=== PATIENT | male | born 1945 | race Caucasian/White ===

== ENCOUNTER 2017-06-12 09:41 | Outpatient (CLI) | payer MEDICARE, MEDICAID ==
--- NOTE | 2017-06-12 13:12 | Ultrasound Report ---
THYROID ULTRASOUND: 06/12/2017 CLINICAL INDICATION: Thyroid nodule. COMPARISON: 04/04/2016 TECHNIQUE: Real-time scanning was performed with brand representative static images obtained. FINDINGS: The right lobe measures 5.1 x 2.2 x 2.10 cm, and the left lobe measures 5.9 x 2.1 x 1.6 cm . Multiple nodules are again seen bilaterally, without significant interval change. The dominant no dule in the mid portion of the right lobe is hypoechoic, with circumscribed margins, measuring 2.0 x 1.7 x 1.6 cm. There has been no significant interval change. IMPRESSION: STABLE APPEARANCE OF MULTINODULAR GOITER. JOB #: [id number] EXT JOB #:[id number]
== END 2017-06-12 09:42 | disposition home or self-care (01) ==
LOC: DI 09:41
PROVIDERS: ATTEND Internal Medicine
DX: E04.2 Nontoxic multinodular goiter (principal)
CPT/HCPCS: 76536

== ENCOUNTER 2017-06-12 09:43 | Outpatient (CLI) | payer MEDICARE | END 2017-06-12 09:44 | disposition home or self-care (01) | LOC: DI 09:43 | PROVIDERS: ATTEND Internal Medicine | DX: I35.0 Nonrheumatic aortic (valve) stenosis (principal) | CPT/HCPCS: 76536; 93306 ==

== ENCOUNTER 2017-08-12 00:54 | Outpatient (CLI) | payer MEDICARE, MEDICAID | END 2017-08-12 00:55 | disposition critical access hospital (66) | LOC: EMS 00:54 | PROVIDERS: ATTEND Surgery | DX: R06.00 Dyspnea, unspecified (principal) | CPT/HCPCS: A0425; A0427 ==

== ENCOUNTER 2017-08-12 00:58 | Emergency (ER) | payer MEDICARE, MEDICAID ==
--- NOTE | 2017-08-12 01:06 | ED Physician Documentation ---
PD HPI DYSPNEA - Stated complaint Stated Complaint: SOA NEW ONSET/CPAP - History obtained from History obtained from: Patient, Family (spouse) - History of Present Illness Timing - onset: Enter time (00:00 (midnight)) Timing - onset during: Rest (lying in bed but not asleep) Timing - details: Abrupt onset Pain level max: 0 Pain level now: 0 Inciting event(s): Other (no apparent inciting event) Improved by: BiPAP / CPAP Worsened by: Other (no apparent exacerbating factors) Associated symptoms: No: Fever, Cough, Hemoptysis, Wheezing, Chest pain / discomfort, Palpitations, Diaphoresis, Bilateral edema Similar symptoms before: Has not had sx before Recently seen: Not recently seen - Additional information Additional information: sudden onset dyspnea while lying in bed awake at approximately midnight. EMS found patient severely dyspneic with pulse ox in the 70s% range. Dramatic improvement en route subsequent to initiation of CPAP by EMS. Patient denies chest pain and denies h/o similar dyspnea. Patient had echo 2 months ago which revealed severe aortic stenosis. Patient's says that he was recently evaluated in outpatient setting by a claim service representative and was told that without surgery, patient would likely not survive beyond 2-3 years, but that the claim service representative's recommendation was to reevaluate him by the end of August rather than perform surgery, as patient did not have symptoms attributable to the , and that patient's "confusion" ( per , although she says patient has not been specifically diagnosed with dementia or other cause of his confusion) also was factored into this recommendation. Review of Systems Constitutional: reports: Reviewed and negative Eyes: reports: Reviewed and negative Ears: reports: Reviewed and negative Nose: reports: Reviewed and negative Throat: reports: Reviewed and negative Cardiac: denies: Chest pain / pressure, Palpitations, Pedal edema, Calf pain Respiratory: reports: Dyspnea. denies: Cough, Hemoptysis, Wheezing GI: reports: Reviewed and negative : denies: Dysuria, Frequency Skin: reports: Reviewed and negative Musculoskeletal: reports: Reviewed and negative Neurologic: reports: Reviewed and negative PD PAST MEDICAL HISTORY - Past Medical History Cardiovascular: Hypertension, High cholesterol Respiratory: CPAP use Endocrine/Autoimmune: Type 2 diabetes - Past Surgical History Past Surgical History: Yes General: Appendectomy - Present Medications Home Medications: Ambulatory Orders Medication Instructions Recorded Confirmed Glipizide [Glipizide Xl] 10 mg PO BID 01/30/14 08/12/17 Losartan [Cozaar] 25 mg PO DAILY 01/30/14 08/12/17 Metformin HCl 1,000 mg PO TID 01/30/14 08/12/17 Sertraline HCl 50 mg PO DAILY 01/30/14 08/12/17 Glucosamine Sulfate Dipot Chlr 2,000 mg PO DAILY 01/16/15 08/12/17 [Glucosamine] [place]-3 Fatty Acids/Fish Oil [Fish 2 each PO DAILY 01/16/15 08/12/17 Oil 1,000 mg Capsule] Insulin Glargine [Lantus Solostar] 10 unit SUBQ QPM 02/12/15 08/12/17 Aspirin [Aspirin EC] 81 mg PO DAILY 08/12/17 08/12/17 Atorvastatin [Lipitor] 10 mg PO QDDINNER 08/12/17 08/12/17 - Allergies Allergies/Adverse Reactions: Allergies Allergy/AdvReac Type Severity Reaction Status Date / Time Penicillins AdvReac Unknown Verified 01/30/14 22:10 - Social History Does the pt smoke?: No Smoking Status: Never smoker Does the pt drink ETOH?: Yes Does the pt have substance abuse?: No - Immunizations Immunizations are current?: Yes - POLST Patient has POLST: No PD ED PE NORMAL - Vitals Vital signs reviewed: Yes - General General: Alert and oriented X 3, Well developed/nourished, Other (on CPAP, mild dyspnea) - HEENT HEENT: Moist mucous membranes - Neck Neck: Supple, no meningeal sign - Cardiac Cardiac: RRR, No murmur (no murmur discernable but heart sounds are obscured by course rales (inspiratory and expiratory)) - Respiratory Respiratory: No respiratory distress, Other (course rales bilaterally 2/3 up from bases) - Abdomen Abdomen: Soft, Non tender - Derm Derm: Normal color, Warm and dry - Extremities Extremities: No edema - Neuro Neuro: Alert and oriented X 3 Results - Vitals Vitals: Vital Signs - 24 hr 08/12/17 08/12/17 08/12/17 00:45 01:09 01:22 Temperature 36.2 C L Heart Rate 95 94 Respiratory 19 20 Rate Blood Pressure 155/101 H 149/88 H O2 Saturation 89 L 93 94 08/12/17 08/12/17 08/12/17 04:34 06:04 07:24 Temperature 36.6 C Heart Rate 78 77 70 Respiratory 18 12 16 Rate Blood Pressure 127/80 117/74 117/74 O2 Saturation 98 97 100 08/12/17 08/12/17 08/12/17 08:14 09:34 10:02 Temperature 36.9 C Heart Rate 73 73 74 Respiratory 14 15 13 Rate Blood Pressure 112/73 101/64 101/64 O2 Saturation 97 98 96 08/12/17 10:55 Temperature Heart Rate 78 Respiratory 14 Rate Blood Pressure 104/62 O2 Saturation 96 Oxygen O2 Source Nasal cannula Oxygen Flow Rate 4 - EKG (time done) No standard instances Rate: Rate (enter#) (94) Rhythm: NSR [place]: Normal Intervals: Normal [place] QRS: Normal Ischemia: Normal ST segments, T wave inversion (I, aVL) - Labs Labs: Laboratory Tests 08/12/17 08/12/17 08/12/17 01:32 01:32 01:32 WBC 10.0 RBC 4.28 L Hgb 14.1 Hct 40.9 L MCV 95.6 H MCH 32.9 H MCHC 34.5 RDW 14.4 Plt Count 186 MPV 9.3 Neut # 7.9 H Lymph # 1.1 L [place] # 0.6 Eos # 0.1 Baso # 0.3 H Absolute Nucleated RBC 0.00 Nucleated RBC % 0.0 Sodium 138 Potassium 4.3 Chloride 103 Carbon Dioxide 25 Anion Gap 10.0 BUN 23 H Creatinine 0.9 Estimated GFR (MDRD) 83 L Glucose 188 H Calcium 8.8 Total Creatine Kinase CK-MB (CK-2) Troponin I 0.14 B-Natriuretic Peptide 08/12/17 08/12/17 08/12/17 01:32 03:32 03:32 WBC RBC Hgb Hct MCV MCH MCHC RDW Plt Count MPV Neut # Lymph # [place] # Eos # Baso # Absolute Nucleated RBC Nucleated RBC % Sodium Potassium Chloride Carbon Dioxide Anion Gap BUN Creatinine Estimated GFR (MDRD) Glucose Calcium Total Creatine Kinase 142 CK-MB (CK-2) 8.4 H Troponin I 0.71 H* B-Natriuretic Peptide 579 H - Rads (name of study) chest xray Radiology: Prelim report reviewed, See rad report PD MEDICAL DECISION MAKING - ED course Complexity details: reviewed old records, reviewed results, re-evaluated patient , considered differential, d/w patient, d/w family ED course: Over 1000cc UO subsequent to 60mg IV lasix and marked improvement in dyspnea. We were able to wean patient off CPAP early in ED stay, to nasal cannula. D/W Dr. Helm ([facility] cardiology); he says that if patient needs surgery for , it cannot be performed at [facility]; he recommends contacting [facility] or [facility]. I discussed this with patient and his , and they do not have a preference. [facility] contacted, and they have no beds available. Patient's then requested [facility]. D/W Dr. Lopez (cardiology at [facility]); she states it would be appropriate to transfer to [facility] but that I should contact intesivist. I then D/W Dr. Bledsoe, production boring machine operator at [facility], who accepts patient. COBRA forms filled out but prior to transfer, I was called by Dr. Boone (the [facility] production boring machine operator, as Dr. Cavanaugh had ended her shift). Dr. Boone said he would recontact me, but I subsequently was called by Dr. Dennis, the hospitalist at [facility]; she says she was contacted by the transfer center at [facility] to admit to telemetry (floor bed). I discussed the case with her, and she accepted patient to her service. I was subsequently contacted by transfer center at [facility] and it was relayed to me that [facility] would not have a bed available for at least 24 hours, but that they had contacted someone at [facility] and were told that an appropriate bed was now available. PRESCHOOL TEACHER'S ASSISTANT recontacted [facility] and was told they do not have beds available. I then contacted cardiology corporation lawyer at [facility] , d/w Dr. Alexandre. He will see if beds are available and either he or the hospitalist will call back to accept patient if a bed is available. Subsequently heard back from transfer center and informed that Dr. Alexandre accepts transfer Departure - Departure Disposition: 02 Transfer Acute Care Hosp Clinical Impression: Pulmonary edema Qualifiers: Chronicity: acute Qualified Code(s): J81.0 - Acute pulmonary edema Condition: Stable Discharge Date/Time: 08/12/17 11:30
[2017-08-12] MEDS ORDERED: FUROSEMIDE 40 MG/4 ML VIAL IVP STA (01:26)
[2017-08-12 01:37] LABS: BASOPHILS # (AUTO) 0.3 10^3/uL (0.0-0.1); BASOPHILS % (AUTO) 3.4 %; EOSINOPHILS # (AUTO) 0.1 10^3/uL (0.0-0.7); EOSINOPHILS % (AUTO) 1.3 %; HCT - HEMATOCRIT 40.9 % (42.0-52.0); HGB - HEMOGLOBIN 14.1 g/dL (14.0-18.0); LYMPHOCYTES # (AUTO) 1.1 10^3/uL (1.5-3.5); LYMPHOCYTES % (AUTO) 11.1 %; MEAN CORPUSCULAR HEMOGLOBIN 32.9 pg (27.0-31.0); MEAN CORPUSCULAR HGB CONC 34.5 g/dL (32.0-36.0); MEAN CORPUSCULAR VOLUME 95.6 fL (80.0-94.0); MEAN PLATELET VOLUME 9.3 fL (7.4-11.4); MONOCYTES # (AUTO) 0.6 10^3/uL (0.0-1.0); MONOCYTES % (AUTO) 5.6 %; NEUTROPHILS # (AUTO) 7.9 10^3/uL (1.5-6.6); NEUTROPHILS % (AUTO) 78.6 %; RED BLOOD COUNT 4.28 10^6/uL (4.70-6.10); RED CELL DISTRIBUTION WIDTH 14.4 % (12.0-15.0)
[2017-08-12 01:46] LABS: CALCIUM 8.8 mg/dL (8.5-10.3); CREATININE 0.9 mg/dL (0.6-1.2); POTASSIUM 4.3 mmol/L (3.5-5.0)
[2017-08-12] MEDS ORDERED: FUROSEMIDE 20 MG/2 ML VIAL IVP ONE (01:49)
[2017-08-12] MEDS ORDERED: FUROSEMIDE 40 MG/4 ML VIAL ONE (01:49)
--- NOTE | 2017-08-12 02:13 | XRAY Preliminary Report ---
Exam: XR CHEST 2 VIEW PA/LAT IMPRESSION: Appearance of the chest could be due to moderate pulmonary edema. Concurrent infection or aspiration, especially within the left lung difficult to exclude with certainty. [facility] SITE ID: [id number]
--- NOTE | 2017-08-12 02:16 | XRAY Report ---
EXAM: CHEST RADIOGRAPHY EXAM DATE: 08/12/2017 01:53 AM. CLINICAL HISTORY: Dyspnea. COMPARISON: 05/08/2016 TECHNIQUE: 2 views. FINDINGS: Grid artifact reduces sensitivity and specificity. Lungs/Pleura: There is new moderate streaky by lateral perihilar opacity, as well as patchy multifoca l airspace disease within the left lung. Trace bilateral effusions are present. Mediastinum: There is mild bilateral hilar enlargement. This is left greater than right. Cardiac silh ouette is within normal limits. Other: Multilevel degenerative change within the spine. IMPRESSION: Appearance of the chest could be due to moderate pulmonary edema. Concurrent infection or aspiration, especially within the left lung difficult to exclude with certainty. [facility] Referring Provider Line: [phone] SITE ID: [id number]
[2017-08-12 03:57] LABS: CREATINE KINASE MB 8.4 ng/mL (0.6-6.3)
[2017-08-12 04:01] LABS: TROPONIN I 0.71 ng/mL (<0.49)
[2017-08-12] MEDS ORDERED: ENOXAPARIN 100 MG/ML SYRINGE SUBQ STA (08:08)
[2017-08-12] MEDS ORDERED: ASPIRIN CHEW 81 MG TABLET PO STA (08:08)
[2017-08-12] MEDS ORDERED: ENOXAPARIN 100 MG/ML SYRINGE SUBQ ONE (08:31)
[2017-08-12] MEDS ORDERED: ASPIRIN CHEW 81 MG TABLET ONE (08:31)
[2017-08-12 11:39] VITALS: BP 104/62
== END 2017-08-12 11:30 | disposition short-term general hospital (02) ==
LOC: EDUNIT# → ED 00:58
DX: J81.0 Acute pulmonary edema (principal); I10 Essential (primary) hypertension; E11.8 Type 2 diabetes mellitus with unspecified complications; Z79.4 Long term (current) use of insulin; E78.00 Pure hypercholesterolemia, unspecified; Z79.82 Long term (current) use of aspirin
CPT/HCPCS: 36415; 71020; 80048; 82550; 82553; 83880; 84484; 85025; 93005; 96372; 96374; 99285; A9270; J1650

== ENCOUNTER 2017-08-12 11:32 | Outpatient (CLI) | payer MEDICARE, MEDICAID | END 2017-08-12 11:33 | disposition short-term general hospital (02) | LOC: EMS 11:32 | PROVIDERS: ATTEND Surgery | DX: J81.0 Acute pulmonary edema (principal) | CPT/HCPCS: A0425; A0426 ==

== ENCOUNTER 2017-09-29 11:34 | Outpatient (CLI) | payer MEDICARE, MEDICAID | END 2017-09-29 11:35 | disposition critical access hospital (66) | LOC: EMS 11:34 | PROVIDERS: ATTEND Surgery | DX: S80.11XA Contusion of right lower leg, initial encounter (principal); X58.XXXA Exposure to other specified factors, initial encounter | CPT/HCPCS: A0425; A0429 ==

== ENCOUNTER 2017-09-29 11:43 | Emergency (ER) | payer MEDICARE, MEDICAID ==
--- NOTE | 2017-09-29 15:22 | ED Physician Documentation ---
History of Present Illness - Stated complaint Stated Complaint: DVT - Chief complaint Chief Complaint: Ext Problem - History obtained from History obtained from: Patient, Family - Additonal information Additional information: The patient is a 72-year-old male who is 10 days status post CABG with venous graft from his right lower extremity. Visiting nurse evaluated him today for the first time, and sent him to the emergency department because of swelling and redness of his right calf. He denies any pain in the calf. He denies fever , cough, or shortness of breath. He denies history of similar symptoms in the past. Review of Systems Constitutional: denies: Fever Nose: denies: Congestion Throat: denies: Sore throat Cardiac: denies: Palpitations Respiratory: denies: Dyspnea, Cough GI: denies: Abdominal Pain, Nausea, Vomiting : denies: Dysuria Skin: denies: Rash Musculoskeletal: reports: Extremity swelling (Right lower extremity.) Neurologic: denies: Focal weakness, Numbness, Headache PD PAST MEDICAL HISTORY - Past Medical History Past Medical History: Yes Cardiovascular: Hypertension, High cholesterol, Coronary artery disease Respiratory: CPAP use Endocrine/Autoimmune: Type 2 diabetes - Past Surgical History Past Surgical History: Yes General: Appendectomy Cardiovascular: CABG (10 days ago.), Other - Present Medications Home Medications: Ambulatory Orders Medication Instructions Recorded Confirmed Glipizide [Glipizide Xl] 10 mg PO BID 01/30/14 08/12/17 Losartan [Cozaar] 25 mg PO DAILY 01/30/14 08/12/17 Metformin HCl 1,000 mg PO TID 01/30/14 08/12/17 Sertraline HCl 50 mg PO DAILY 01/30/14 08/12/17 Glucosamine Sulfate Dipot Chlr 2,000 mg PO DAILY 01/16/15 08/12/17 [Glucosamine] [place]-3 Fatty Acids/Fish Oil [Fish 2 each PO DAILY 01/16/15 08/12/17 Oil 1,000 mg Capsule] Insulin Glargine [Lantus Solostar] 10 unit SUBQ QPM 02/12/15 08/12/17 Aspirin [Aspirin EC] 81 mg PO DAILY 08/12/17 08/12/17 Atorvastatin [Lipitor] 10 mg PO QDDINNER 08/12/17 08/12/17 - Allergies Allergies/Adverse Reactions: Allergies Allergy/AdvReac Type Severity Reaction Status Date / Time Penicillins AdvReac Unknown Verified 01/30/14 22:10 - Living Situation Living Situation: reports: With spouse/s.o. Living Arrangement: reports: At home - Social History Does the pt smoke?: No Smoking Status: Never smoker Does the pt drink ETOH?: Yes Does the pt have substance abuse?: No - Immunizations Immunizations are current?: Yes - POLST Patient has POLST: No PD ED PE NORMAL - Vitals Vital signs reviewed: Yes (Initially hypertensive.) - General General: Alert and oriented X 3, Well developed/nourished - HEENT HEENT: Atraumatic, Moist mucous membranes, Pharynx benign - Neck Neck: No adenopathy, No JVD - Cardiac Cardiac: RRR, No murmur, Other (Sternal incision site is intact, and appears to be healing well, without evidence of infection.) - Respiratory Respiratory: No respiratory distress, Clear bilaterally - Abdomen Abdomen: Soft, Non tender - Back Back: No CVA TTP - Derm Derm: No rash - Extremities Extremities: No tenderness to palpate, No calf tenderness / cord, Other (There is swelling of the right lower extremity distal to the venous graft donor site. There is associated ecchymosis, without significant warmth to palpation. There is no calf tenderness to palpation. Distal neurovascular is intact.) - Neuro Neuro: Alert and oriented X 3, No motor deficit, No sensory deficit Results - Vitals Vitals: Oxygen O2 Source Room air - Rads (name of study) Venous doppler U/S right LE Radiology: Prelim report reviewed, EMP read contemporaneously, See rad report ( No DVT.) PD MEDICAL DECISION MAKING - ED course Complexity details: reviewed results, re-evaluated patient, considered differential, d/w patient, d/w family ED course: The patient's presentation is significant for postoperative edema in the right lower extremity, distal to the venous donor site. There is no evidence of DVT on Doppler ultrasound. His presentation does not suggest cellulitis. The edema is secondary to venous congestion. I discussed with the patient and his the results of the ultrasound, symptomatic treatment and outpatient follow-up, as well as potentially worrisome signs or symptoms that should prompt reevaluation in the emergency department. Departure - Departure Disposition: 01 Home, Self Care Clinical Impression: Edema of right lower extremity, S/P CABG (coronary artery bypass graft) Condition: Stable Instructions: CABG After Prevent Swelling, ED Leg Swelling Unilateral Follow-Up: Fanny Wilson MD [Primary Care Provider] - Comments: Keep your right leg elevated as much of the time as possible. You can wear compression stocking to help diminish swelling. Follow up with your primary physician next week as planned. Return to the emergency department if you develop increasing redness, swelling, or pain of your leg, or otherwise worsening symptoms. Discharge Date/Time: 09/29/17 15:55
[2017-09-29 16:12] VITALS: BP 110/87
--- NOTE | 2017-09-29 17:15 | Ultrasound Report ---
DATE OF SERVICE: 09/29/2017 BILATERAL LOWER EXTREMITY VENOUS DUPLEX: 09/29/2017 CLINICAL INDICATION: Swelling, erythema, two weeks status post cardiac surgery. TECHNIQUE: Real-time sonographic vascular imaging was performed by the filbert grower through the lower extremities utilizing both color flow and Doppler spectral analysis. Multiple territory sales representative static images were saved for review. FINDINGS: A bilateral lower extremity venous sonogram is performed revealing the common femoral, superficial femoral, profunda femoris, and popliteal veins to be adequately visualized without intraluminal defects. There is normal venous compression, augmentation, phasicity, and spontaneity of venous flow. In the calf, the visualized more cephalad portions of posterior tibial and peroneal veins are grossly compressible, without filling defects. IMPRESSION: NO EVIDENCE OF DEEP VENOUS THROMBOSIS. TD: 09/29/2017 18:14
== END 2017-09-29 15:55 | disposition home or self-care (01) ==
LOC: EDUNIT# → ED 11:43
DX: R60.0 Localized edema (principal); Z98.890 Other specified postprocedural states; I25.10 Atherosclerotic heart disease of native coronary artery without angina pectoris; Z95.1 Presence of aortocoronary bypass graft; E11.9 Type 2 diabetes mellitus without complications; Z79.4 Long term (current) use of insulin; E78.00 Pure hypercholesterolemia, unspecified; G47.30 Sleep apnea, unspecified; Z79.82 Long term (current) use of aspirin
CPT/HCPCS: 93970; 99283

== ENCOUNTER 2017-10-25 09:11 | Outpatient (CLI) | payer MEDICARE, MEDICAID ==
[2017-10-25] MEDS ORDERED: BARIUM SULFATE 148 GM POWDER PO ONE (10:13)
[2017-10-25] MEDS ORDERED: BARIUM SULFATE 135 ML BOTTLE PO ONE (10:13)
--- NOTE | 2017-10-25 11:06 | XRAY Report ---
ESOPHAGRAM: 10/25/2017 CLINICAL INDICATION: Dysphagia. FINDINGS: Esophagram was performed in a semi-recumbent and prone positions, due to the patient's instability (recent cardiac surgery). The esophagus demonstrates normal caliber. Tertiary contractions are seen. No ulceration or mass lesion is appreciated. There is a small sliding hiatal hernia, which produced reflux. A 13 mm barium pill passed slowly through the esophagus, due to presbyesophagus. The pill did not reproduce the patient's symptoms. IMPRESSION: PRESBYESOPHAGUS. HIATAL HERNIA, PRODUCING REFLUX. NO ULCER OR MASS LESION IDENTIFIED. FLUOROSCOPY TIME: 2 MINUTES 55 SECONDS; 22 SPOT IMAGES OBTAINED. TD: 10/25/2017 11:05
== END 2017-10-25 09:12 | disposition home or self-care (01) ==
LOC: DI 09:11
PROVIDERS: ATTEND Internal Medicine
DX: K22.8 Other specified diseases of esophagus (principal); K44.9 Diaphragmatic hernia without obstruction or gangrene; K21.9 Gastro-esophageal reflux disease without esophagitis
CPT/HCPCS: 74220; A9270

== ENCOUNTER 2017-11-27 19:50 | Outpatient (CLI) | payer MEDICARE, MEDICAID ==
[2017-11-27 21:13] LABS: BASOPHILS # (AUTO) 0.1 10^3/uL (0.0-0.1); BASOPHILS % (AUTO) 0.7 %; EOSINOPHILS # (AUTO) 0.1 10^3/uL (0.0-0.7); EOSINOPHILS % (AUTO) 0.8 %; HGB - HEMOGLOBIN 11.1 g/dL (14.0-18.0); LYMPHOCYTES # (AUTO) 0.8 10^3/uL (1.5-3.5); LYMPHOCYTES % (AUTO) 10.2 %; MEAN CORPUSCULAR HEMOGLOBIN 28.7 pg (27.0-31.0); MEAN CORPUSCULAR HGB CONC 32.3 g/dL (32.0-36.0); MEAN CORPUSCULAR VOLUME 88.6 fL (80.0-94.0); MEAN PLATELET VOLUME 7.8 fL (7.4-11.4); MONOCYTES # (AUTO) 0.5 10^3/uL (0.0-1.0); MONOCYTES % (AUTO) 6.2 %; NEUTROPHILS # (AUTO) 6.5 10^3/uL (1.5-6.6); NEUTROPHILS % (AUTO) 82.1 %; PLT - PLATELET COUNT 366 10^3/uL (130-450); RED BLOOD COUNT 3.88 10^6/uL (4.70-6.10)
[2017-11-27 21:30] LABS: ALBUMIN 3.8 g/dL (3.2-5.5); BILIRUBIN,TOTAL 0.3 mg/dL (0.2-1.0); CALCIUM 8.8 mg/dL (8.5-10.3); CREATININE 0.9 mg/dL (0.6-1.2); TOTAL PROTEIN 7.5 g/dL (6.7-8.2)
--- NOTE | 2017-11-27 21:40 | Ultrasound Report ---
EXAM: BILATERAL LOWER EXTREMITY VENOUS ULTRASOUND EXAM DATE: 11/27/2017 09:03 PM. CLINICAL HISTORY: BILATERAL EDEMA. COMPARISON: None. TECHNIQUE: Real-time sonographic vascular imaging was performed by the wood coater through the lower extremities utilizing both color-flow and Doppler spectral analysis. Multiple service center representative static i mages were saved for review. FINDINGS: Right: Common Femoral Vein (CFV): Normal. CFV-GSV Junction: Normal. Profunda Femoral Vein (PFV): Normal. Femoral Vein (FV) Prox: Normal. Femoral Vein (FV) Mid: Normal. Femoral Vein (FV) Dist: Normal. Popliteal Vein: Normal. Posterior Tibial Veins: Limited visualization. Peroneal Veins: Limited visualization. Left: Common Femoral Vein (CFV): Normal. CFV-GSV Junction: Normal. Profunda Femoral Vein (PFV): Normal. Femoral Vein (FV) Prox: Normal. Femoral Vein (FV) Mid: Normal. Femoral Vein (FV) Dist: Normal. Popliteal Vein: Normal. Posterior Tibial Veins: Limited visualization. Peroneal Veins: Limited visualization. Other: None. IMPRESSION: No evidence for deep venous thrombosis bilaterally. [facility] Referring Provider Line: [phone] SITE ID: [id number]
[2017-11-27 21:43] LABS: THYROID STIMULATING HORMONE 1.58 uIU/mL (0.34-5.60)
[2017-11-27 21:47] LABS: FERRITIN 352.2 ng/mL (23.9-336.2)
== END 2017-11-27 19:51 | disposition home or self-care (01) ==
LOC: DI 19:50
PROVIDERS: ATTEND Internal Medicine
DX: R60.9 Edema, unspecified (principal); I25.10 Atherosclerotic heart disease of native coronary artery without angina pectoris; D64.9 Anemia, unspecified
CPT/HCPCS: 36415; 80053; 82728; 83540; 83880; 84443; 84466; 85025; 93970

== ENCOUNTER 2017-12-01 18:32 | Outpatient (CLI) | payer MEDICARE, MEDICAID | END 2017-12-01 18:33 | disposition critical access hospital (66) | LOC: EMS 18:32 | PROVIDERS: ATTEND Surgery | DX: R53.1 Weakness (principal) | CPT/HCPCS: A0425; A0429 ==

== ENCOUNTER 2017-12-01 18:40 | Inpatient (IN) | payer MEDICARE, MEDICAID ==
[2017-12-01 19:32] LABS: BASOPHILS # (AUTO) 0.1 10^3/uL (0.0-0.1); EOSINOPHILS # (AUTO) 0.1 10^3/uL (0.0-0.7); EOSINOPHILS % (AUTO) 1.9 %; HGB - HEMOGLOBIN 10.7 g/dL (14.0-18.0); LYMPHOCYTES # (AUTO) 1.1 10^3/uL (1.5-3.5); LYMPHOCYTES % (AUTO) 16.4 %; MEAN CORPUSCULAR HGB CONC 31.7 g/dL (32.0-36.0); MEAN CORPUSCULAR VOLUME 88.2 fL (80.0-94.0); MEAN PLATELET VOLUME 7.6 fL (7.4-11.4); MONOCYTES # (AUTO) 0.6 10^3/uL (0.0-1.0); MONOCYTES % (AUTO) 8.5 %; NEUTROPHILS # (AUTO) 4.7 10^3/uL (1.5-6.6); NEUTROPHILS % (AUTO) 72.2 %; PLT - PLATELET COUNT 362 10^3/uL (130-450); RED BLOOD COUNT 3.84 10^6/uL (4.70-6.10); RED CELL DISTRIBUTION WIDTH 18.3 % (12.0-15.0); WHITE BLOOD COUNT 6.5 x10^3/uL (4.8-10.8)
[2017-12-01 19:40] LABS: PT - PROTHROMBIN TIME 11.7 secs (9.9-12.6)
[2017-12-01 19:45] LABS: ALBUMIN 3.6 g/dL (3.2-5.5); BILIRUBIN,TOTAL 0.4 mg/dL (0.2-1.0); CALCIUM 8.9 mg/dL (8.5-10.3); CREATININE 0.8 mg/dL (0.6-1.2); TOTAL PROTEIN 7.1 g/dL (6.7-8.2)
[2017-12-01 19:49] LABS: TROPONIN I < 0.04 ng/mL (<0.49)
[2017-12-01 19:52] LABS: CREATINE KINASE MB 2.2 ng/mL (0.6-6.3)
--- NOTE | 2017-12-01 20:07 | ED Physician Documentation ---
PD HPI FOCAL NEURO - Stated complaint Stated Complaint: LEG WEAKNESS - Chief complaint Chief Complaint: Ext Problem - History obtained from History obtained from: Patient, Family (mostly from the d/t dementia) - History of Present Illness Timing - onset: Other (This is a very pleasant 72-year-old gentleman with dementia cared for by his at home. He is a couple months out from coronary bypass. He has been improving well, walking with a walker. They noticed today that after waking up he had persistent difficulties with potentially the right leg. He nearly collapsed a few times. The patient has no specific complaint though but he is a poor historian.) Review of Systems Unable to obtain: Dementia PD PAST MEDICAL HISTORY - Past Medical History Cardiovascular: Hypertension, High cholesterol, Coronary artery disease Respiratory: CPAP use Neuro: Peripheral neuropathy Endocrine/Autoimmune: Type 2 diabetes - Past Surgical History Past Surgical History: Yes General: Appendectomy Cardiovascular: CABG, Other - Present Medications Home Medications: Ambulatory Orders Medication Instructions Recorded Confirmed Glipizide [Glipizide Xl] 10 mg PO BID 01/30/14 08/12/17 Losartan [Cozaar] 25 mg PO DAILY 01/30/14 08/12/17 Metformin HCl 1,000 mg PO TID 01/30/14 08/12/17 Sertraline HCl 50 mg PO DAILY 01/30/14 08/12/17 Glucosamine Sulfate Dipot Chlr 2,000 mg PO DAILY 01/16/15 08/12/17 [Glucosamine] [place]-3 Fatty Acids/Fish Oil [Fish 2 each PO DAILY 01/16/15 08/12/17 Oil 1,000 mg Capsule] Insulin Glargine [Lantus Solostar] 10 unit SUBQ QPM 02/12/15 08/12/17 Aspirin [Aspirin EC] 81 mg PO DAILY 08/12/17 08/12/17 Atorvastatin [Lipitor] 10 mg PO QDDINNER 08/12/17 08/12/17 - Allergies Allergies/Adverse Reactions: Allergies Allergy/AdvReac Type Severity Reaction Status Date / Time Penicillins AdvReac Unknown Verified 12/01/17 18:57 - Social History Does the pt smoke?: No Smoking Status: Never smoker Does the pt drink ETOH?: Yes Does the pt have substance abuse?: No - Immunizations Immunizations are current?: Yes - POLST Patient has POLST: No PD ED PE NORMAL - Vitals Vital signs reviewed: Yes - General General: Other (He is alert and oriented to person, he cannot come up with the date, year, or president. He defers to his for most of the questions. He is pleasant and cooperative.) - HEENT HEENT: PERRL, EOMI - Neck Neck: Supple, no meningeal sign, No bony TTP - Cardiac Cardiac: RRR, Other (2 out of 6 decrescendo systolic murmur, left lower sternal border, says it is old.) - Respiratory Respiratory: No respiratory distress, Clear bilaterally - Abdomen Abdomen: Normal bowel sounds, Soft, Non tender - Back Back: No CVA TTP, No spinal TTP - Derm Derm: Normal color, Warm and dry - Neuro Neuro: organ builder 2-12 intact Eye Opening: Spontaneous Motor: Obeys Commands Verbal: Confused GCS Score: 14 - Psych Psych: Normal mood, Normal affect NIHSS - Time Time: 20:02 - Level of Consciousness Level of consciousness: (0) Alert, Keenly responsive LOC Questions: (2) Answers neither correct LOC Commands: (0) Performs both correctly - Gaze Best Gaze: (0) Normal - Visual Visual: (0) No loss - Facial Palsy Facial Palsy: (0) Normal, symmetrical movement - Motor Arms (both separate) Motor Arm (right): (1) Drift Motor Arm (left): (1) Drift - Motor Legs (both separate) Motor Leg (right): (1) Drift Motor Leg (left): (2) Some effort against gravity - Limb Ataxia Limb Ataxia: (0) Absent - Sensory Sensory: (0) Normal - Best Language Best Language: (0) No aphasia - Dysarthria Dysarthria: (0) Normal - Extinction and Inattention (formally neg Extinction and inattention: (1) Visual,tactile,auditory,spatial, or personal inattention (Some neglect, especially left upper and lower extremities.) - Total Score/Results Total Score/Result: 8 Results - Vitals Vitals: Vital Signs - 24 hr 12/01/17 18:46 Temperature 36.3 C L Heart Rate 71 Respiratory 20 Rate Blood Pressure 123/79 O2 Saturation 94 Oxygen O2 Source Room air - EKG (time done) 2016 Rate: Rate (enter#) (67) Rhythm: NSR, LAE [place]: Normal Intervals: Normal [place] QRS: Normal Ischemia: Non specific changes - Labs Labs: Laboratory Tests 12/01/17 12/01/17 12/01/17 19:25 19:25 19:25 WBC 6.5 RBC 3.84 L Hgb 10.7 L Hct 33.9 L MCV 88.2 MCH 28.0 MCHC 31.7 L RDW 18.3 H Plt Count 362 MPV 7.6 Neut # 4.7 Lymph # 1.1 L [place] # 0.6 Eos # 0.1 Baso # 0.1 Absolute Nucleated RBC 0.00 Nucleated RBC % 0.0 PT 11.7 INR 1.0 Sodium 133 L Potassium 4.6 Chloride 99 L Carbon Dioxide 24 Anion Gap 10.0 BUN 18 Creatinine 0.8 Estimated GFR (MDRD) 95 Glucose 119 H Calcium 8.9 Total Bilirubin 0.4 AST 15 ALT 12 Alkaline Phosphatase 55 Total Creatine Kinase 45 CK-MB (CK-2) Troponin I Total Protein 7.1 Albumin 3.6 Globulin 3.5 Albumin/Globulin Ratio 1.0 Lipase 31 12/01/17 19:25 WBC RBC Hgb Hct MCV MCH MCHC RDW Plt Count MPV Neut # Lymph # [place] # Eos # Baso # Absolute Nucleated RBC Nucleated RBC % PT INR Sodium Potassium Chloride Carbon Dioxide Anion Gap BUN Creatinine Estimated GFR (MDRD) Glucose Calcium Total Bilirubin AST ALT Alkaline Phosphatase Total Creatine Kinase CK-MB (CK-2) 2.2 Troponin I < 0.04 Total Protein Albumin Globulin Albumin/Globulin Ratio Lipase - Rads (name of study) CT Head Radiology: EMP read contemporaneously (Chronic findings and a suggestion of normal pressure hydrocephalus) PD MEDICAL DECISION MAKING - ED course ED course: 72-year-old gentleman presents by ambulance with strokelike symptoms, 2 months out from coronary bypass graft. He is not a candidate for TPA given the time course, they noted it when he woke up this morning. Head CT is no acute but obviously that does not rule out acute stroke. It is concerning for normal pressure hydrocephalus and he did have ventriculomegaly on prior scans. I called the , She previously had this assessed by a neurologist in [place], no intervention was done and is seeking a referral to [facility] with normal pressure hydrocephalus team. Given concern for stroke, he will be admitted for further evaluation and treatment and I spoke with Dr. Hurtado for admission at 9:10 PM. Departure - Departure Disposition: 66 [facility] DC/Xfer Clinical Impression: CVA (cerebral vascular accident)
--- NOTE | 2017-12-01 20:43 | CT Preliminary Report ---
Exam: CT HEAD W/O IMPRESSION: 1. Stable enlargement of the third and lateral ventricles are normal caliber fourth ventricle. Correl ate for signs, symptoms and history of normal pressure hydrocephalus. 2. Generalized age-related cortical atrophic changes without evidence of acute intracranial abnormali ty. [facility] SITE ID: [id number]
--- NOTE | 2017-12-01 20:46 | CT Report ---
EXAM: CT HEAD EXAM DATE: 12/01/2017 08:35 PM. CLINICAL HISTORY: Weakness with abnormal balance. COMPARISON: 03/21/2016. TECHNIQUE: Multiaxial CT images were obtained from the foramen magnum to the vertex. Reformats: Coron al. IV contrast: None. In accordance with CT protocol optimization, one or more of the following dose reduction techniques w ere utilized for this exam: automated exposure control, adjustment of mA and/or KV based on patient s ize, or use of iterative reconstructive technique. FINDINGS: Parenchyma: No intraparenchymal hemorrhage. No evidence of mass, midline shift, or CT findings of acu te infarction. [place]-white differentiation is distinct. Diffuse chronic microangiopathic white matter changes are evident. Extraaxial Spaces: Normal for age. No subdural or epidural collections identified. Ventricles: Stable enlargement of the third and lateral ventricles slightly greater than expected for the sulcal size. No midline shift. Configuration of the ventricles is similar to the previous study. Fourth ventricle is normal in caliber. Sinuses and orbits: Imaged paranasal sinuses, orbits, and mastoids show no significant abnormality. Bones: No evidence of fracture or calvarial defect. Other: Extensive vascular calcifications are present in the cavernous carotid arteries. IMPRESSION: 1. Stable enlargement of the third and lateral ventricles with normal caliber fourth ventricle. Corre late for signs, symptoms and history of normal pressure hydrocephalus. 2. Generalized age-related cortical atrophic changes without evidence of acute intracranial abnormali ty. [facility] Referring Provider Line: [phone] SITE ID: [id number]
[2017-12-01] MEDS ORDERED: ONDANSETRON 4 MG/2 ML VIAL IVP PRN (21:23)
[2017-12-01] MEDS ORDERED: oxyCODONE 5 MG TABLET PO PRN (21:23)
[2017-12-01] MEDS ORDERED: SODIUM CHLORIDE FLUSH 0.9% 10 ML SYRINGE IVP PRN (21:23)
[2017-12-01] MEDS ORDERED: ACETAMINOPHEN 325 MG TABLET PO PRN (21:23)
[2017-12-01] MEDS ORDERED: ONDANSETRON ODT 4 MG TABLET TL PRN (21:23)
[2017-12-01 21:30] LABS: BILIRUBIN,URINE NEGATIVE (NEGATIVE); GLUCOSE, URINE (UA) NEGATIVE (NEGATIVE); KETONES,URINE (UA) NEGATIVE (NEGATIVE); LEUKOCYTE ESTERASE, URINE NEGATIVE (NEGATIVE); NITRITE,URINE NEGATIVE (NEGATIVE); OCCULT BLOOD,URINE NEGATIVE (NEGATIVE); PH,URINE 5.5 PH (5.0-7.5); PROTEIN,URINE NEGATIVE (NEGATIVE); UROBILINOGEN,URINE 0.2 (NORMAL) E.U./dL (NORMAL)
[2017-12-01 21:53] LABS: CLARITY,URINE CLEAR (CLEAR)
[2017-12-01 22:20] LABS: HB2 TOTAL 11.8 g/dL; HEMOGLOBIN A1C 0.46 g/dL; HEMOGLOBIN A1C % 5.7 % (4.6-6.2)
[2017-12-01] MEDS: ASPIRIN EC 325 MG TABLET PO SCH (22:45)
[2017-12-01] MEDS: ATORVASTATIN 40 MG TABLET PO SCH (22:45)
[2017-12-01] MEDS: CLOPIDOGREL 75 MG TABLET PO SCH (22:45)
[2017-12-02] MEDS: SODIUM CHLORIDE FLUSH 0.9% 10 ML SYRINGE IVP SCH ×3 (01:15→17:06)
--- NOTE | 2017-12-02 05:17 | HISTORY & PHYSICAL EXAMINATION ---
DATE OF SERVICE: 12/01/2017 Physician: Kelsi Hurtado MD PRIMARY CARE PROVIDER: Fanny Wilson MD ADMITTING PROVIDER: Kelsi Hurtado MD CHIEF COMPLAINT: Unable to walk suddenly, starting this morning. HISTORY OF PRESENT ILLNESS: The patient is a gentleman who lives at home with his . He has a history of gait imbalance and falls dating to late 2012. He had a few encounters in the emergency room in the fall of 2013 and into 2014, where he has fallen for no explainable reason. He has had also gradual cognitive deficits. He no longer drives and uses a walker at home. In February 2016, he had a sudden change in mental status and an MRI showed ventriculomegaly. It also showed a possible subacute right temporal lobe infarct. However, because so many images showed ventriculomegaly out of proportion to aging or stroke, he was sent to see Dr. Grant, Neurology, at [facility] in the fall of 2015. Dr. 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 He repeated the MRI, and did screening for dementia and neuropathy. Methylmalonic acid was normal. Homocysteine levels were okay. Toxic metal screening was negative. The MRI was reviewed and compared to the February 2016 MRI, and showed no abnormalities other than the ventriculomegaly. His mini mental status exam varied between 27 to 29 out of 30 at that time. Between then and now, he has continued to deteriorate with regard to his falls, ataxia, memory loss. His is in the process of having him referred to [facility] , and now that group is going to refer him to [facility]. The patient went on to develop complications of his hypertension, hyperlipidemia , diabetes, and had coronary artery disease. Bypass surgery was 2 months ago in September,. Today, as he got up out of bed in the morning, the noted that his walking was different. He was tip-toeing on his right leg, but at the same time, she was feeling like his right leg was weak. He almost fell down and, as the day progressed, his weakness got worse and he could not get out of bed at all. History is obtained from Dr. Knutson. The patient's has already left to go home. In the emergency room, Dr. Knutson identified the patient as having left body weakness, and a CT of the head was negative. He is now admitted for stroke. He is not a candidate for tpa because of the time span from onset to here in the ER. PAST MEDICAL HISTORY 1. Type 2 diabetes mellitus, controlled, on Lantus. Complications are neuropathy, retinopathy. Diabetes has been present since 2003. 2. Hyperlipidemia. 3. Hypertension. 4. Obstructive sleep apnea with use of CPAP. 5. Coronary artery disease and severe aortic stenosis. While he does have some evidence of dizziness at times in the past, he has not had true syncope or IN or congestive heart failure from his valvular heart disease. I am unsure if he has had valve replacement or not with his bypass surgery 2 months ago. 6. Prostate cancer since 2009. He has urinary incontinence. Implant done 2012. 7. Hemorrhoidectomy. 8. Depression and anxiety. The anxiety is more of a low grade generalized feeling that has gotten worse with his memory loss. 9. Appendectomy in the . ALLERGIES: ALLERGIC TO PENICILLIN. MEDICATIONS 1. Aspirin 81 mg daily. 2. Lipitor 10 mg daily. 3. Glipizide XL 10 mg p.o. b.i.d. 4. Glucosamine 2000 mg daily. 5. Lantus 10 units at night. 6. Cozaar 25 mg daily. 7. Metformin 1000 mg t.i.d. with meals. 8. [place] 3 fish oil 2 capsules daily 1000 mg each. 9. Sertraline 50 mg daily. SOCIAL HISTORY: He never smoked, never drank. No history of recreational substance abuse. FAMILY HISTORY: Dad at 86 of prostate cancer. Mom at 79 of a brain tumor. One sister has survived breast cancer and is still alive. His 3 children are healthy. REVIEW OF SYSTEMS: Unobtainable. This gentleman is disoriented. Does not know why he is here. He is angry. He wants to go home. He wants to keep on pulling off leads , and required a phone call to his at home to calm him down and settle him down. PHYSICAL EXAMINATION VITAL SIGNS: Temperature is 36.9, blood pressure is 134-139 systolic, pulse is 62, respirations 16 and unlabored, and he is 96% on room air. GENERAL: He is a tall, well-nourished, well-developed, white male who looks older than stated age with snowy, white hair; and a snowy, white swain and mustache. HEAD AND NECK: Slight left facial droop, slight dysarthric speech and word- finding. Neck is supple. No JVD. LUNGS: Clear to auscultation and percussion. CARDIAC: He has a regular rate and rhythm and I do hear aortic stenosis murmur. ABDOMEN: Soft, nontender, without organomegaly. Normal bowel sounds. EXTREMITIES: Warm without clubbing, cyanosis or edema. NEUROLOGIC: He is able to follow commands, but needs a lot of coaxing and prompting. I get the impression he was much more cooperative in the emergency room and, as the evening has progressed, he has deteriorated with regard to orientation and anxiety. His left arm and leg are weak. He cannot lift his left leg off the bed. Speech is intermittently intact. LABORATORY DATA: Sodium is 133, potassium 4.6, BUN 18, creatinine 0.8, random glucose 119. A1c is 5.7%. Iron is 24 and low on November 27. TIBC was 301. He has 8% saturation. Transferrin was 215. Ferritin is 352. TSH is 1.58 on November 27. Today, troponin is less than 0.04. Liver enzymes are normal. White cell count is 6.5. Hemoglobin is gradually coming down. In August 2017 he was 14.1, November 27 he was 11.1, and today is 10.7. INR is 1. Urinalysis is normal. Head CT tonight shows stable enlargement of the third and lateral ventricles with normal caliber fourth ventricle. Generalized age-related cortical atrophic changes without evidence of acute intracranial abnormality. Review of a 10/25/2017 esophagram under fluoroscopy shows a normal-caliber esophagus. Tertiary contraction seen. No ulceration or mass lesion appreciated. Small sliding hiatal hernia, which produced reflux. A 13 mm barium pill passed slowly through the esophagus due to presbyesophagus. The pill did not reproduce the patient's symptoms of dysphagia. An MR angiogram of the neck from 05/04/2016 showed mild stenosis of the right cervical ICA origin. No significant stenosis in the left cervical carotid artery. 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 Soft tissue ultrasound of the neck showed multinodular goiter. ASSESSMENT/PLAN 1. Acute left hemiplegia attributed to stroke. Risk factors include age, atherosclerotic disease, male sex, hyperlipidemia, hypertension, and diabetes. He also has obstructive sleep apnea. Attestation: The patient will be admitted less than 96 hours. Plan: Admit to inpatient status. PT and OT evaluation in the morning. MRI of brain. CT angiogram of neck and brain. Frequent neuro checks. Observed to see if his status worsens or improves. Tonight, he has had some mild combativeness. Depending on his resolution of symptoms, he may or may not be a candidate for rehab. The patient is already on a statin and an aspirin. We will add Plavix. 2. Hypertension. Currently controlled. Allow permissive hypertension up to 180 systolic. 3. Type 2 diabetes mellitus, controlled, with complications, on long-term insulin. Plan: Resume Lantus 10 units at night. Sliding scale before meals insulin before eating. Hold metformin while in the hospital. 4. Aortic stenosis history. We will verify where the patient had surgery and get the records to see which vessels were bypassed and what was done with the valve. Currently , no congestive heart failure, no syncope and no angina. 5. History of obstructive sleep apnea. We will verify status of CPAP. 6. History of depression and anxiety. Continue sertraline. 7. New anemia. Did have ACB 09/1027 but his anemia has worsened in the last month. Check anemia panel for Iron and B12 and TSH. 8. FULL CODE status. 9. Deep venous thrombosis prophylaxis will be CHANTEL huertas. TD: 12/02/2017 05:16 ABIMAEL
[2017-12-02 06:15] LABS: MEAN RETIC VALUE 112.3; RED BLOOD COUNT 3.56 10^6/uL (4.70-6.10)
[2017-12-02 06:20] LABS: CHOL/HDL RATIO 3.7 (<5.0); CHOLESTEROL 127 mg/dL; HDL CHOLESTEROL 34 mg/dL; LDL CHOLESTEROL,CALCULATED 65 mg/dL; LDL/HDL RATIO 1.9 (<3.6); VLDL CHOLESTEROL 28 mg/dL
[2017-12-02 06:56] LABS: FERRITIN 185.5 ng/mL (23.9-336.2)
[2017-12-02] MEDS ORDERED: IOPAMIDOL-300 100 ML VIAL ONE (08:01)
[2017-12-02] MEDS: INSULIN ASPART 300 UNIT/3 ML PEN SUBQ SCH ×4 (09:47→21:03)
[2017-12-02] MEDS: CLOPIDOGREL 75 MG TABLET PO SCH (09:48)
[2017-12-02] MEDS: ASPIRIN EC 325 MG TABLET PO SCH (09:48)
[2017-12-02] MEDS: POLYETHYLENE GLYCOL 3350 17 GM PACKET PO SCH (09:49)
[2017-12-02 10:26] LABS: % IRON SATURATION 9 % (20-50); IRON 24 ug/dL (45-182); TOTAL IRON BINDING CAPACITY 258 ug/dL (250-450); TRANSFERRIN 184 mg/dL (180-329)
[2017-12-02] MEDS ORDERED: IOPAMIDOL-300 100 ML VIAL IVP ONE (12:51)
--- NOTE | 2017-12-02 14:44 | CT Report ---
EXAM: CT ANGIOGRAM HEAD. CT SCAN OF THE HEAD WITHOUT AND WITH CONTRAST. EXAM DATE: 12/02/2017 12:50 PM CLINICAL HISTORY: Concern for infarction. Lower extremity weakness. COMPARISON: Noncontrast CT head 12/01/2017 TECHNIQUE: - CT Scan Head: Using a multidetector scanner, axial images were acquired from the foramen magnum to the skull vertex prior to and following contrast administration. - CT Angiogram: Using a multidetector scanner, high-resolution axial images were acquired from the sk ull base through vertex following rapid infusion of intravenous contrast. Reformats: Multiplanar MIP reformats were reconstructed. Nascet criteria used for stenosis measurement. IV Contrast: 100 cc [id number]. In accordance with CT protocol optimization, one or more of the following dose reduction techniques w ere utilized for this exam: automated exposure control, adjustment of mA and/or KV based on patient s ize, or use of iterative reconstructive technique. FINDINGS: NON-CONTRAST HEAD: Redemonstration stable marked ventriculomegaly involving the supratentorial ventricles when compared to the prior study from 12/01/2017, again noted to be out of proportion to sulcal enlargement and con cerning for etiology such as normal pressure hydrocephalus. This is also not significantly progressed from an earlier CT from 03/21/2016. Otherwise no CT evidence of acute intracranial abnormality, spec ifically no CT evidence of acute infarct, intracranial hemorrhage, mass effect, or midline shift. The bhakta-white differentiation is preserved. The basal cisterns are patent. The visualized orbits, paran simón sinuses, and mastoid air cells are clear. POST-CONTRAST HEAD: No abnormal enhancement. CT ANGIOGRAM HEAD: Mild atherosclerosis distal cervical right internal carotid artery, no hemodynamically significant st enosis. Moderate atherosclerosis right carotid siphon, maximal stenosis 20-30%. Mild to moderate athe rosclerosis left carotid siphon, maximal stenosis 10-20%. The right vertebral artery small with PICA termination. Mild atherosclerosis V4 segment left vertebral artery, no hemodynamically significant st enosis. Mild narrowing proximal basilar artery (series 11 image 86), approximately 20% narrowing. The basilar artery is otherwise unremarkable. Patent posterior communicating arteries are seen bilateral ly. The right MCA is unremarkable. The ACAs bilaterally are unremarkable. The left MCA is unremarkabl e. The P1 segments of the cross tie tram loader bilaterally are small, with the posterior cerebral arteries primarily supplied by the posterior communicating arteries. The cross tie tram loader bilaterally are otherwise unremarkable. DURAL VENOUS SINUSES AND MAJOR CENTRAL VEINS: Patent. IMPRESSION: 1. Redemonstration stable marked ventriculomegaly involving the supratentorial ventricles when compar ed to the prior study from 12/01/2017, again noted to be out of proportion to sulcal enlargement and concerning for etiology such as normal pressure hydrocephalus. This is also not significantly progres sed from an earlier CT from 03/21/2016. Otherwise no CT evidence of acute intracranial abnormality, s pecifically no CT evidence of acute infarct, intracranial hemorrhage, mass effect, or midline shift. 2. No abnormal enhancement on the postcontrast CT head. 3. No CTA evidence of high-grade stenosis, dissection, occlusion, aneurysm, or vascular malformation within the intracranial arteries. Multifocal atherosclerotic vascular disease as detailed above and s ummarized below. 4. Moderate atherosclerosis right carotid siphon, maximal stenosis 20-30%. 5. Mild to moderate atherosclerosis left carotid siphon, maximal stenosis 10-20%. 6. The right vertebral artery is small with PICA termination. 7. Mild narrowing proximal basilar artery (series 11 image 86), approximately 20% narrowing. [facility] Referring Provider Line: [phone] SITE ID: [id number]
--- NOTE | 2017-12-02 14:55 | CT Report ---
EXAM: CT ANGIOGRAM NECK EXAM DATE: 12/02/2017 12:51 PM. CLINICAL HISTORY: Concerning for infarction. Lower extremity weakness COMPARISON: None. TECHNIQUE: Routine axial helical imaging was performed from the skull base through the aortic arch. R econstructions: Routine multiplanar 3D MIP reconstructions. IV Contrast: Yes. 80 cc Omnipaque 350 Carmela luation of arterial stenosis is based on a NASCET method of measurement. In accordance with CT protocol optimization, one or more of the following dose reduction techniques w ere utilized for this exam: automated exposure control, adjustment of mA and/or KV based on patient s ize, or use of iterative reconstructive technique. FINDINGS: Mild atherosclerosis aortic arch, no hemodynamically significant stenosis. Right Carotid: Moderate to severe atherosclerosis right carotid bifurcation and right carotid bulb, m aximal stenosis of 45%, mild by NASCET criteria . Mild atherosclerosis distal cervical right and foca l right artery, no hemodynamically significant stenosis. The common carotid, internal carotid, and ex ternal carotid arteries are patent. No evidence of dissection. Left Carotid: Moderate to severe atherosclerosis left carotid bifurcation left carotid bulb, maximal stenosis 46%, mild by NASCET criteria . The common carotid, internal carotid, and external carotid ar teries are patent. No evidence of dissection. Vertebrals: The left vertebral artery is dominant. The right vertebral artery small with PICA termina tion. Mild atherosclerosis right vertebral artery origin, no hemodynamically significant stenosis. Mi ld atherosclerosis left vertebral artery origin, maximal stenosis 20-30%. Intracranial Circulation: Concurrently obtained CTA head is dictated separately. Other: Large left pleural effusion is noted. Scattered groundglass densities visualized left upper lobe, likely representing subsegmental atelecta sis/alveolar pulmonary edema. Intact midline sternotomy wires. Mild multilevel degenerative spondylos is of the visualized spine, no acute fracture or malalignment. Thyroid gland is heterogeneous with ca lcifications within the left lobe and a 1.5 cm hypodense lesion within the right lobe. IMPRESSION: 1. No CTA evidence of occlusion or dissection within the extracranial arteries. CTA of the head is di ctated separately. Multifocal atherosclerosis as detailed above and summarized below. 2. Moderate to severe atherosclerosis right carotid bifurcation and right carotid bulb, maximal steno sis of 45%, mild by NASCET criteria . 3. Mild atherosclerosis distal cervical right and focal right artery, no hemodynamically significant stenosis. 4. Moderate to severe atherosclerosis left carotid bifurcation left carotid bulb, maximal stenosis 46 %, mild by NASCET criteria 5. The left vertebral artery is dominant. The right vertebral artery small with PICA termination. 6. Mild atherosclerosis right vertebral artery origin, no hemodynamically significant stenosis. 7. Mild atherosclerosis left vertebral artery origin, maximal stenosis 20-30%. 8. Large left pleural effusion is noted. 9. Scattered groundglass densities visualized left upper lobe, likely representing subsegmental atele ctasis/alveolar pulmonary edema. 10. Thyroid gland is heterogeneous with calcifications within the left lobe and a 1.5 cm hypodense le homero within the right lobe. The CT appearance is nonspecific. This can be further evaluated with thyr oid ultrasound, which may be done non-emergently. [facility] Referring Provider Line: [phone] SITE ID: [id number]
--- NOTE | 2017-12-02 17:39 | MRI Report ---
EXAM: MRI BRAIN WITHOUT CONTRAST EXAM DATE: 12/02/2017 04:55 PM. CLINICAL HISTORY: Concern for infarction. Bilateral leg weakness. COMPARISON: CTA head and neck 12/02/2017, MR brain 05/04/2016 TECHNIQUE: Multiplanar, multisequence T1-weighted and fluid-sensitive MR sequences of the brain were performed. Sequences optimized for routine evaluation. Other: None. IV Contrast: None. FINDINGS: Brain Volume: Normal for age. Parenchyma/Dura: No mass, acute infarct or hemorrhage. Moderate scattered periventricular, deep, and subcortical white matter lesions within the cerebral hemispheres bilaterally. No parenchymal foci of susceptibility artifact. Ventricles/Cisterns: Compared to the prior MRI from 02/02/2016, , stable marked ventriculomegaly. The ventricular enlargement again appears somewhat out of proportion to sulcal enlargement. Orbits: Symmetric and unremarkable. Sella Turcica: The pituitary gland, cavernous sinuses, suprasellar cistern and optic chiasm are unrem arkable. IAC: Symmetric and unremarkable. Vasculature: Normal signal flow void is seen in the major arterial structures at the skull base. Sinuses: No acute appearing sinus disease. Bones: No focal pathologic appearing marrow signal changes. Other: None. IMPRESSION: 1. No MRI evidence of acute intracranial abnormality. Specifically, no evidence of acute or subacute infarct, acute intracranial hemorrhage, mass, or midline shift. 2. Compared to the prior MRI from 02/02/2016, , stable marked ventriculomegaly. The ventricular enlar gement again appears somewhat out of proportion to sulcal enlargement. As before, this suggests possi bility of normal pressure hydrocephalus. 3. Moderate scattered periventricular, deep, and subcortical white matter lesions within the cerebral hemispheres bilaterally. While nonspecific, this is favored to represent sequela of chronic microang iopathy. [facility] Referring Provider Line: [phone] SITE ID: [id number]
--- NOTE | 2017-12-02 17:55 | PROVIDER PROGRESS NOTE ---
Assessment/Plan - Problem List (1) Acute left hemiparesis Assessment/Plan: On presentation this was attributed to stroke as patient has risk factors of age , atherosclerotic disease, male sex, hyperlipidemia, hypertension and diabetes. The CT head did not show an acute stroke therefore MRI of the brain and CT angios of the brain and neck were ordered. We are awaiting results of imaging Patient's left hemiaplasia appears to be significantly improved and this may be a TIA PT did evaluate the patient and was able to get him up but the patient did not participate further as he said he wanted his . Patient will be continued on aspirin, statin and Plavix. CT is more concerning for normal pressure hydrocephalus and patient does appear to have some dementia and ataxia which would also go with normal pressure hydrocephalus we will await MRI and CT angiogram to confirm this diagnosis (2) Hypertension Qualifiers: Hypertension type: essential hypertension Qualified Code(s): I10 - Essential (primary) hypertension Assessment/Plan: Patient blood pressure is currently controlled We will allow for permissive hypertension up to 180 systolic (3) Type 2 diabetes mellitus Assessment/Plan: Controlled patient will be continued on Lantus 10 units at night and sliding scale insulin before meals. We will hold the patient's metformin (4) History of aortic stenosis Assessment/Plan: Currently patient is asymptomatic Stable (5) History of obstructive sleep apnea Assessment/Plan: Patient's told to bring CPAP machine so patient can use at night (6) History of depression Assessment/Plan: Continue sertraline - Current Meds Current Meds: Current Medications Generic Name Dose Route Start Last Admin Trade Name Efraq PRN Reason Stop Dose Admin Aspirin 325 mg 12/01/17 22:00 12/02/17 09:48 Ecotrin PO 325 mg DAILY BEN Administration Atorvastatin Calcium 40 mg 12/01/17 22:00 12/01/17 22:45 Lipitor PO Not Given QPM BEN Clopidogrel Bisulfate 75 mg 12/01/17 22:00 12/02/17 09:48 Plavix PO 75 mg DAILY BEN Administration Insulin Aspart 1 - 5 unit 12/02/17 08:00 12/02/17 17:06 Novolog SUBQ 2 unit 0800,1200,1700,2100 BEN Administration Protocol Polyethylene Glycol 17 gm 12/02/17 09:00 12/02/17 09:49 Miralax PO 17 gm DAILY BEN Administration Sodium Chloride 10 ml 12/02/17 01:00 12/02/17 17:06 Normal Saline Flush 0.9% IVP 10 ml 0100,0900,1700 BEN Administration - Lab Result Lab results reviewed: Yes Fish Bone Diagrams: 12/01/17 19:25 12/01/17 19:25 - Diagnostic Imaging Results Diagnostic Imaging Results: Final report reviewed - Additional Planning Condition/Complexity: Guarded Consult/Specialty: PT Plan Discussed with:: Patient Time Spent: 31-60 minutes Subjective - Subjective Patient Reports: Other (Patient is very confused. He is looking for his . He denies any complaints. He denies any weakness.) Nursing Reports: Confused Objective Vital Signs: Vital Signs - 24 hr 12/01/17 12/01/17 12/02/17 22:35 23:55 05:30 Temperature 37.1 C 36.9 C 36.4 C L Heart Rate [ 64 62 65 Radial] Respiratory 16 16 Rate Blood Pressure [Left Brachial artery] Blood Pressure 139/73 H 134/77 H 157/51 H [Right] O2 Saturation 94 96 98 12/02/17 12/02/17 12/02/17 08:00 13:08 15:51 Temperature 36.6 C 36.6 C 36.6 C Heart Rate [ 67 76 77 Radial] Respiratory 16 18 18 Rate Blood Pressure 149/99 H 142/76 H [Left Brachial artery] Blood Pressure 168/94 H [Right] O2 Saturation 94 99 96 Oxygen O2 Source Room air I&O (Last 24 Hrs): Intake and Output Totals x24h 11/30/17 12/01/17 12/02/17 23:59 23:59 23:59 Intake Total 760 Output Total 1 Balance 759 General: Alert, Other (Confused and uncooperative.) HEENT: Atraumatic, PERRLA, EOMI, Mucous membr. moist/pink Neck: Supple, No JVD, No thyromegaly, +2 carotid pulse wo bruit, No LAD Lymphatic: no adenopathy Neuro: Alert, Focal Deficits (Mild left-sided weakness and left facial droop), Non Focal, CN 2-12 Grossly Intact Cardiovascular: Regular rate, Other (Systolic murmur) Respiratory: Chest non-tender, No respiratory distress, Breath sounds nml Abdomen: Normal bowel sounds, Soft, No tenderness, No hepatospenomegaly Extremities: No clubbing, No cyanosis, No edema, Normal pulses Skin: No rashes, No breakdown - Results Results: Laboratory Results WBC 6.5 x10^3/uL (4.8-10.8) 12/01/17 19: RBC 3.56 10^6/uL (4.70-6.10) L 12/02/17 05:48 Hgb 10.7 g/dL (14.0-18.0) L 12/01/17 19: Hct 33.9 % (42.0-52.0) L 12/01/17 19: MCV 88.2 fL (80.0-94.0) 12/01/17: MCH 28.0 pg (27.0-31.0) 12/01/17: MCHC 31.7 g/dL (32.0-36.0) L 12/01/17: RDW 18.3 % (12.0-15.0) H 12/01/17: Plt Count 362 10^3/uL (130-450) 12/01/17 19: MPV 7.6 fL (7.4-11.4) 12/01/17 19: Reticulocyte % (Auto) 1.69 % (0.5-2.3) 12/02/17 05:48 Neut # 4.7 10^3/uL (1.5-6.6) 12/01/17: Lymph # 1.1 10^3/uL (1.5-3.5) L 12/01/17: [place] # 0.6 10^3/uL (0.0-1.0) 12/01/17 19: Eos # 0.1 10^3/uL (0.0-0.7) 12/01/17 19: Baso # 0.1 10^3/uL (0.0-0.1) 12/01/17: Absolute Nucleated RBC 0.00 x10^3/uL 12/01/17: Nucleated RBC % 0.0 /100WBC 12/01/17 19: Absolute Retic 0.060 10^6/uL (0.020-0.110) 12/02/17 05:48 PT 11.7 secs (9.9-12.6) 12/01/17 19:25 INR 1.0 (0.8-1.2) 12/01/17 19:25 Sodium 133 mmol/L (135-145) L 12/01/17 19:25 Potassium 4.6 mmol/L (3.5-5.0) 12/01/17 19:25 Chloride 99 mmol/L (101-111) L 12/01/17 19:25 Carbon Dioxide 24 mmol/L (21-32) 12/01/17 19:25 Anion Gap 10.0 (6-13) 12/01/17 19:25 BUN 18 mg/dL (6-20) 12/01/17 19:25 Creatinine 0.8 mg/dL (0.6-1.2) 12/01/17 19:25 Estimated GFR (MDRD) 95 (>89) 12/01/17 19:25 Glucose 119 mg/dL (70-100) H 12/01/17 19:25 Glycated Hemoglobin 5.7 % (4.6-6.2) 12/01/17 19:25 Estim Average Glucose 117 (70-100) H 12/01/17 19:25 Calcium 8.9 mg/dL (8.5-10.3) 12/01/17 19:25 Iron 24 ug/dL (45-182) L 12/02/17 09:05 TIBC 258 ug/dL (250-450) 12/02/17 09:05 % Saturation 9 % (20-50) L 12/02/17 09:05 Transferrin 184 mg/dL (180-329) 12/02/17 09:05 Ferritin 185.5 ng/mL (23.9-336.2) 12/02/17 05:48 Total Bilirubin 0.4 mg/dL (0.2-1.0) 12/01/17 19:25 AST 15 IU/L (10-42) 12/01/17 19:25 ALT 12 IU/L (10-60) 12/01/17 19:25 Alkaline Phosphatase 55 IU/L (42-121) 12/01/17 19:25 Lactate Dehydrogenase 115 IU/L (91-225) 12/02/17 05:48 Total Creatine Kinase 45 IU/L (22-269) 12/01/17 19:25 CK-MB (CK-2) 2.2 ng/mL (0.6-6.3) 12/01/17 19:25 Troponin I < 0.04 ng/mL (<0.49) 12/01/17 19:25 Total Protein 7.1 g/dL (6.7-8.2) 12/01/17 19:25 Albumin 3.6 g/dL (3.2-5.5) 12/01/17 19:25 Globulin 3.5 g/dL (2.1-4.2) 12/01/17 19:25 Albumin/Globulin Ratio 1.0 (1.0-2.2) 12/01/17 19:25 Triglycerides 139 mg/dL (-149) 12/02/17 05:48 Cholesterol 127 mg/dL (-199) 12/02/17 05:48 LDL Cholesterol, Calc 65 mg/dL (-129) 12/02/17 05:48 VLDL Cholesterol 28 mg/dL 12/02/17 05:48 HDL Cholesterol 34 mg/dL (60-) L 12/02/17 05:48 LDL/HDL Ratio 1.9 (<3.6) 12/02/17 05:48 Cholesterol/HDL Ratio 3.7 (<5.0) 12/02/17 05:48 Lipase 31 U/L (22-51) 12/01/17 19:25 Vitamin B12 316 pg/mL (180-914) 12/02/17 05:48 Urine Color YELLOW 12/01/17 21:20 Urine Clarity CLEAR (CLEAR) 12/01/17 21:20 Urine pH 5.5 PH (5.0-7.5) 12/01/17 21:20 Ur Specific [place] 1.020 (1.002-1.030) 12/01/17 21:20 Urine Protein NEGATIVE mg/dL (NEGATIVE) 12/01/17 21:20 Urine Glucose (UA) NEGATIVE mg/dL (NEGATIVE) 12/01/17 21:20 Urine Ketones NEGATIVE mg/dL (NEGATIVE) 12/01/17 21:20 Urine Occult Blood NEGATIVE (NEGATIVE) 12/01/17 21:20 Urine Nitrite NEGATIVE (NEGATIVE) 12/01/17 21:20 Urine Bilirubin NEGATIVE (NEGATIVE) 12/01/17 21:20 Urine Urobilinogen 0.2 (NORMAL) E.U./dL (NORMAL) 12/01/17 21:20 Ur Leukocyte Esterase NEGATIVE (NEGATIVE) 12/01/17 21:20 Ur Microscopic Review NOT INDICATED 12/01/17 21:20 Urine Culture Comments NOT INDICATED 12/01/17 21:20
[2017-12-02] MEDS: ATORVASTATIN 40 MG TABLET PO SCH (20:57)
[2017-12-02] MEDS ORDERED: MAGNESIUM HYDROXIDE 2,400 MG/30 ML UDC PO ONE (21:00)
[2017-12-02] MEDS ORDERED: INSULIN GLARGINE 300 UNIT/3 ML PEN SUBQ SCH (21:00)
[2017-12-03] MEDS: SODIUM CHLORIDE FLUSH 0.9% 10 ML SYRINGE IVP SCH ×2 (00:18→08:55)
[2017-12-03 07:06] LABS: CALCIUM 8.7 mg/dL (8.5-10.3); CREATININE 0.7 mg/dL (0.6-1.2)
[2017-12-03] MEDS: ASPIRIN EC 325 MG TABLET PO SCH (08:55)
[2017-12-03] MEDS: POLYETHYLENE GLYCOL 3350 17 GM PACKET PO SCH (08:55)
[2017-12-03] MEDS: CLOPIDOGREL 75 MG TABLET PO SCH (08:55)
[2017-12-03] MEDS: INSULIN ASPART 300 UNIT/3 ML PEN SUBQ SCH ×2 (08:56→12:00)
[2017-12-03 10:53] VITALS: BP 132/63
--- NOTE | 2017-12-03 13:11 | Discharge Plan ---
Discharge Plan Disposition: 01 Home, Self Care Condition: Fair Diet: Diabetic Activity Restrictions: Activity as Tolerated Shower Restrictions: No Driving Restrictions: No Assistance Devices: Walker Weight Bearing: Full Weight Additional Instructions or Follow Up instructions: You presented to the emergency department with left-sided weakness and a mild facial droop. Initially we were concerned for possibility of stroke and did workup with a CT of your head, CT angiogram of the brain and an MRI of the brain. We also did an echocardiogram of your heart. All of this testing was negative for an acute stroke or acute bleed. Your symptoms have since completely resolved suggesting that this was likely a transient ischemic attack. You did not have any irregular findings on your echocardiogram or on telemetry. 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 This may explain some of your symptoms of confusion and poor gait. We suggest that you follow-up with [facility] which specializes in normal pressure hydrocephalus as you are instructed by neurology at [place]. You should also follow-up with your primary care physician. You should continue with home health physical therapy. You should continue on your home medications we have not added any new medications. Follow-Up Care: Home Health - PT No Smoking: If you smoke, Please STOP! Call for help. Follow-up with: Fanny Wilson MD [Primary Care Provider] -
--- NOTE | 2017-12-03 16:34 | DISCHARGE SUMMARY ---
Discharge Summary Admit Date: 12/01/17 Discharge Date: 12/03/17 Discharging Provider: Jl Swain MD Primary Care Provider: Fanny Wilson MD Code Status: Attempt Resuscitation Condition at Discharge: Fair Discharge Disposition: 01 Home, Self Care - DIAGNOSES Admission Diagnoses: 1. Acute left hemiplegia attributed to stroke 2. Hypertension 3. Type 2 diabetes mellitus 4. Aortic stenosis history 5. History of obstructive sleep apnea 6. History of depression and anxiety 7. Anemia Discharge Diagnoses with Status of Each Condition: 1. Transient ischemic attack: Stable 2. Normal pressure hydrocephalus: Stable 3. Hypertension: Stable 4. Type 2 diabetes mellitus: Stable 5. History of aortic stenosis: Stable 6. History of obstructive sleep apnea: Stable 7. History of depression: Stable 8. Anemia: Stable - HPI History of Present Illness: Patient is a 72-year-old gentleman with a past medical history significant for hypertension, hyperlipidemia, diabetes and coronary artery disease status post CABG in September 2017 who presented to the emergency department with recurrent falls, ataxia and memory loss. On presentation to the emergency department the patient had left hemiplegia and was admitted for a stroke. - HOSPITAL COURSE Hospital Course: During the hospitalization the patient had resolution of his left hemiplegia and his neurologic exam returned to baseline. The patient continued to have confusion secondary to dementia and did have an ataxic gait. The patient underwent CT head, CT angios head and neck as well as a MRI of his brain. There was no findings of an acute hemorrhage or acute ischemia on any of the imaging. The patient however was found to have evidence of marked ventriculomegaly concerning for normal pressure hydrocephalus. This was not a new finding as this was also there on MRI from 2016. The patient's was aware of this diagnosis and has been seeing neurology as an outpatient. The patient has been referred to the NPH clinic at [facility] and the patient's was told to make sure that he makes that appointment. The patient was seen by physical therapy and home health PT was recommended. The patient already has home health PT and will continue with that at home. The patient was discharged home in stable condition and will continue on his home medications. - ALLERGIES Allergies/Adverse Reactions: Allergies Allergy/AdvReac Type Severity Reaction Status Date / Time Penicillins AdvReac Unknown Verified 12/01/17 18:57 - MEDICATIONS Home Medications: Ambulatory Orders Medication Instructions Recorded Confirmed Losartan [Cozaar] 25 mg PO DAILY 01/30/14 12/03/17 Metformin HCl 1,000 mg PO BIDWM 01/30/14 12/03/17 Aspirin [Aspirin EC] 81 mg PO DAILY 08/12/17 12/03/17 Atorvastatin Calcium 40 mg PO QDDINNER 12/02/17 12/02/17 Citalopram [CeleXA] 10 mg PO DAILY 12/02/17 12/02/17 Metoprolol Tartrate [Lopressor] 25 mg PO BID 12/02/17 12/02/17 Omeprazole [PriLOSEC] 20 mg PO QDAC 12/02/17 12/02/17 - PHYSICAL EXAM AT DISCHARGE General Appearance: positive: No acute distress, Other (confused, demented) Eyes Bilateral: positive: Normal inspection, PERRL, EOMI, No lid inflammation, Conjunctivae nml, No scleral icterus ENT: positive: ENT inspection nml, Pharynx nml, No signs of dehydration. negative: Purulent nasal drainage, Pharyngeal erythema, Oral lesions Neck: positive: Nml inspection, Thyroid nml, No JVD, Trachea midline. negative : Lymphadenopathy (R), Lymphadenopathy (L), Stiff neck, Carotid bruit, Tracheal deviation Respiratory: positive: Chest non-tender, No respiratory distress, Breath sounds nml. negative: Wheezes, Rales, Rhonchi Cardiovascular: positive: Regular rate & rhythm, No murmur, No gallop Peripheral Pulses: positive: 2+ Abdomen: positive: Non-tender, No organomegaly, Nml bowel sounds, No distention. negative: Guarding, Rebound, Hepatomegaly Back: positive: Nml inspection. negative: CVA tenderness (R), CVA tenderness (L ) Skin: positive: Color nml, No rash, Warm. negative: Diaphoresis, Skin rash Extremities: positive: Non-tender, Full ROM, Nml appearance, No pedal edema Neurologic/Psychiatric: positive: CN's nml (2-12), Motor nml, Sensation nml, Disoriented to place, Disoriented to time - LABS Result Diagrams: 12/01/17 19:25 12/03/17 06:38 Other Lab Results: Laboratory Results WBC 6.5 x10^3/uL (4.8-10.8) 12/01/17 19:25 RBC 3.56 10^6/uL (4.70-6.10) L 12/02/17 05:48 Hgb 10.7 g/dL (14.0-18.0) L 12/01/17 19:25 Hct 33.9 % (42.0-52.0) L 12/01/17 19:25 MCV 88.2 fL (80.0-94.0) 12/01/17 19:25 MCH 28.0 pg (27.0-31.0) 12/01/17 19: MCHC 31.7 g/dL (32.0-36.0) L 12/01/17 19: RDW 18.3 % (12.0-15.0) H 12/01/17: Plt Count 362 10^3/uL (130-450) 12/01/17 19: MPV 7.6 fL (7.4-11.4) 12/01/17 19: Reticulocyte % (Auto) 1.69 % (0.5-2.3) 12/02/17 05:48 Neut # 4.7 10^3/uL (1.5-6.6) 12/01/17 19: Lymph # 1.1 10^3/uL (1.5-3.5) L 12/01/17 19:25 [place] # 0.6 10^3/uL (0.0-1.0) 12/01/17 19: Eos # 0.1 10^3/uL (0.0-0.7) 12/01/17 19: Baso # 0.1 10^3/uL (0.0-0.1) 12/01/17 19: Absolute Nucleated RBC 0.00 x10^3/uL 12/01/17 19: Nucleated RBC % 0.0 /100WBC 12/01/17 19: Absolute Retic 0.060 10^6/uL (0.020-0.110) 12/02/17 05:48 PT 11.7 secs (9.9-12.6) 12/01/17 19:25 INR 1.0 (0.8-1.2) 12/01/17 19:25 Sodium 134 mmol/L (135-145) L 12/03/17 06:38 Potassium 3.9 mmol/L (3.5-5.0) 12/03/17 06:38 Chloride 101 mmol/L (101-111) 12/03/17 06:38 Carbon Dioxide 25 mmol/L (21-32) 12/03/17 06:38 Anion Gap 8.0 (6-13) 12/03/17 06:38 BUN 12 mg/dL (6-20) 12/03/17 06:38 Creatinine 0.7 mg/dL (0.6-1.2) 12/03/17 06:38 Estimated GFR (MDRD) 111 (>89) 12/03/17 06:38 Glucose 144 mg/dL (70-100) H 12/03/17 06:38 Glycated Hemoglobin 5.7 % (4.6-6.2) 12/01/17 19:25 Estim Average Glucose 117 (70-100) H 12/01/17 19:25 Calcium 8.7 mg/dL (8.5-10.3) 12/03/17 06:38 Iron 24 ug/dL (45-182) L 12/02/17 09:05 TIBC 258 ug/dL (250-450) 12/02/17 09:05 % Saturation 9 % (20-50) L 12/02/17 09:05 Transferrin 184 mg/dL (180-329) 12/02/17 09:05 Ferritin 185.5 ng/mL (23.9-336.2) 12/02/17 05:48 Total Bilirubin 0.4 mg/dL (0.2-1.0) 12/01/17 19:25 AST 15 IU/L (10-42) 12/01/17 19:25 ALT 12 IU/L (10-60) 12/01/17 19:25 Alkaline Phosphatase 55 IU/L (42-121) 12/01/17 19:25 Lactate Dehydrogenase 115 IU/L (91-225) 12/02/17 05:48 Total Creatine Kinase 45 IU/L (22-269) 12/01/17 19:25 CK-MB (CK-2) 2.2 ng/mL (0.6-6.3) 12/01/17 19:25 Troponin I < 0.04 ng/mL (<0.49) 12/01/17 19:25 Total Protein 7.1 g/dL (6.7-8.2) 12/01/17 19:25 Albumin 3.6 g/dL (3.2-5.5) 12/01/17 19:25 Globulin 3.5 g/dL (2.1-4.2) 12/01/17 19:25 Albumin/Globulin Ratio 1.0 (1.0-2.2) 12/01/17 19:25 Triglycerides 139 mg/dL (-149) 12/02/17 05:48 Cholesterol 127 mg/dL (-199) 12/02/17 05:48 LDL Cholesterol, Calc 65 mg/dL (-129) 12/02/17 05:48 VLDL Cholesterol 28 mg/dL 12/02/17 05:48 HDL Cholesterol 34 mg/dL (60-) L 12/02/17 05:48 LDL/HDL Ratio 1.9 (<3.6) 12/02/17 05:48 Cholesterol/HDL Ratio 3.7 (<5.0) 12/02/17 05:48 Lipase 31 U/L (22-51) 12/01/17 19:25 Vitamin B12 316 pg/mL (180-914) 12/02/17 05:48 Urine Color YELLOW 12/01/17 21:20 Urine Clarity CLEAR (CLEAR) 12/01/17 21:20 Urine pH 5.5 PH (5.0-7.5) 12/01/17 21:20 Ur Specific [place] 1.020 (1.002-1.030) 12/01/17 21:20 Urine Protein NEGATIVE mg/dL (NEGATIVE) 12/01/17 21:20 Urine Glucose (UA) NEGATIVE mg/dL (NEGATIVE) 12/01/17 21:20 Urine Ketones NEGATIVE mg/dL (NEGATIVE) 12/01/17 21:20 Urine Occult Blood NEGATIVE (NEGATIVE) 12/01/17 21:20 Urine Nitrite NEGATIVE (NEGATIVE) 12/01/17 21:20 Urine Bilirubin NEGATIVE (NEGATIVE) 12/01/17 21:20 Urine Urobilinogen 0.2 (NORMAL) E.U./dL (NORMAL) 12/01/17 21:20 Ur Leukocyte Esterase NEGATIVE (NEGATIVE) 12/01/17 21:20 Ur Microscopic Review NOT INDICATED 12/01/17 21:20 Urine Culture Comments NOT INDICATED 12/01/17 21:20 - DIAGNOSTIC IMAGING Diagnostic Imaging Results: Final report reviewed Diagnostic Imaging Results Comments: EXAM: [id number] CT/HEADWO ([id number]) EXAM: CT HEAD EXAM DATE: 12/01/2017 08:35 PM. CLINICAL HISTORY: Weakness with abnormal balance. COMPARISON: 03/21/2016. TECHNIQUE: Multiaxial CT images were obtained from the foramen magnum to the vertex. Reformats: Coronal. IV contrast: None. In accordance with CT protocol optimization, one or more of the following dose reduction techniques were utilized for this exam: automated exposure control, adjustment of mA and/or KV based on patient size, or use of iterative reconstructive technique. FINDINGS: Parenchyma: No intraparenchymal hemorrhage. No evidence of mass, midline shift, or CT findings of acute infarction. [place]-white differentiation is distinct. Diffuse chronic microangiopathic white matter changes are evident. Extraaxial Spaces: Normal for age. No subdural or epidural collections identified. Ventricles: Stable enlargement of the third and lateral ventricles slightly greater than expected for the sulcal size. No midline shift. Configuration of the ventricles is similar to the previous study. Fourth ventricle is normal in caliber. Sinuses and orbits: Imaged paranasal sinuses, orbits, and mastoids show no significant abnormality. Bones: No evidence of fracture or calvarial defect. Other: Extensive vascular calcifications are present in the cavernous carotid arteries. IMPRESSION: 1. Stable enlargement of the third and lateral ventricles with normal caliber fourth ventricle. Correlate for signs, symptoms and history of normal pressure hydrocephalus. 2. Generalized age-related cortical atrophic changes without evidence of acute intracranial abnormality. EXAM: [id number] MRI/BRWO ([id number]) EXAM: MRI BRAIN WITHOUT CONTRAST EXAM DATE: 12/02/2017 04:55 PM. CLINICAL HISTORY: Concern for infarction. Bilateral leg weakness. COMPARISON: CTA head and neck 12/02/2017, MR brain 05/04/2016 TECHNIQUE: Multiplanar, multisequence T1-weighted and fluid-sensitive MR sequences of the brain were performed. Sequences optimized for routine evaluation. Other: None. IV Contrast: None. FINDINGS: Brain Volume: Normal for age. Parenchyma/Dura: No mass, acute infarct or hemorrhage. Moderate scattered periventricular, deep, and subcortical white matter lesions within the cerebral hemispheres bilaterally. No parenchymal foci of susceptibility artifact. Ventricles/Cisterns: Compared to the prior MRI from 02/02/2016, , stable marked ventriculomegaly. The ventricular enlargement again appears somewhat out of proportion to sulcal enlargement. Orbits: Symmetric and unremarkable. [place]: The pituitary gland, cavernous sinuses, suprasellar cistern and optic chiasm are unremarkable. IAC: Symmetric and unremarkable. Vasculature: Normal signal flow void is seen in the major arterial structures at the skull base. Sinuses: No acute appearing sinus disease. Bones: No focal pathologic appearing marrow signal changes. Other: None. IMPRESSION: 1. No MRI evidence of acute intracranial abnormality. Specifically, no evidence of acute or subacute infarct, acute intracranial hemorrhage, mass, or midline shift. 2. Compared to the prior MRI from 02/02/2016, , stable marked ventriculomegaly. The ventricular enlargement again appears somewhat out of proportion to sulcal enlargement. As before, this suggests possibility of normal pressure hydrocephalus. 3. Moderate scattered periventricular, deep, and subcortical white matter lesions within the cerebral hemispheres bilaterally. While nonspecific, this is favored to represent sequela of chronic microangiopathy. EXAM: [id number] CT/NECKANG ([id number]) EXAM: CT ANGIOGRAM NECK EXAM DATE: 12/02/2017 12:51 PM. CLINICAL HISTORY: Concerning for infarction. Lower extremity weakness COMPARISON: None. TECHNIQUE: Routine axial helical imaging was performed from the skull base through the aortic arch. Reconstructions: Routine multiplanar 3D MIP reconstructions. IV Contrast: Yes. 80 cc Omnipaque 350 Evaluation of arterial stenosis is based on a NASCET method of measurement. In accordance with CT protocol optimization, one or more of the following dose reduction techniques were utilized for this exam: automated exposure control, adjustment of mA and/or KV based on patient size, or use of iterative reconstructive technique. FINDINGS: Mild atherosclerosis aortic arch, no hemodynamically significant stenosis. Right Carotid: Moderate to severe atherosclerosis right carotid bifurcation and right carotid bulb , maximal stenosis of 45%, mild by NASCET criteria . Mild atherosclerosis distal cervical right and focal right artery, no hemodynamically significant stenosis. The common carotid , internal carotid, and external carotid arteries are patent. No evidence of dissection. Left Carotid: Moderate to severe atherosclerosis left carotid bifurcation left carotid bulb, maximal stenosis 46%, mild by NASCET criteria . The common carotid, internal carotid, and external carotid arteries are patent. No evidence of dissection. Vertebrals: The left vertebral artery is dominant. The right vertebral artery small with PICA termination. Mild atherosclerosis right vertebral artery origin, no hemodynamically significant stenosis. Mild atherosclerosis left vertebral artery origin, maximal stenosis 20 -30%. Intracranial Circulation: Concurrently obtained CTA head is dictated separately. Other: Large left pleural effusion is noted. Scattered groundglass densities visualized left upper lobe, likely representing subsegmental atelectasis/alveolar pulmonary edema. Intact midline sternotomy wires. Mild multilevel degenerative spondylosis of the visualized spine, no acute fracture or malalignment. Thyroid gland is heterogeneous with calcifications within the left lobe and a 1.5 cm hypodense lesion within the right lobe. IMPRESSION: 1. No CTA evidence of occlusion or dissection within the extracranial arteries. CTA of the head is dictated separately. Multifocal atherosclerosis as detailed above and summarized below. 2. Moderate to severe atherosclerosis right carotid bifurcation and right carotid bulb, maximal stenosis of 45%, mild by NASCET criteria . 3. Mild atherosclerosis distal cervical right and focal right artery, no hemodynamically significant stenosis. 4. Moderate to severe atherosclerosis left carotid bifurcation left carotid bulb , maximal stenosis 46%, mild by NASCET criteria 5. The left vertebral artery is dominant. The right vertebral artery small with PICA termination. 6. Mild atherosclerosis right vertebral artery origin, no hemodynamically significant stenosis. 7. Mild atherosclerosis left vertebral artery origin, maximal stenosis 20-30%. 8. Large left pleural effusion is noted. 9. Scattered groundglass densities visualized left upper lobe, likely representing subsegmental atelectasis/alveolar pulmonary edema. 10. Thyroid gland is heterogeneous with calcifications within the left lobe and a 1.5 cm hypodense lesion within the right lobe. The CT appearance is nonspecific. This can be further evaluated with thyroid ultrasound, which may be done non-emergently. EXAM: [id number] CT/NECKANG ([id number]) EXAM: CT ANGIOGRAM NECK EXAM DATE: 12/02/2017 12:51 PM. CLINICAL HISTORY: Concerning for infarction. Lower extremity weakness COMPARISON: None. TECHNIQUE: Routine axial helical imaging was performed from the skull base through the aortic arch. Reconstructions: Routine multiplanar 3D MIP reconstructions. IV Contrast: Yes. 80 cc Omnipaque 350 Evaluation of arterial stenosis is based on a NASCET method of measurement. In accordance with CT protocol optimization, one or more of the following dose reduction techniques were utilized for this exam: automated exposure control, adjustment of mA and/or KV based on patient size, or use of iterative reconstructive technique. FINDINGS: Mild atherosclerosis aortic arch, no hemodynamically significant stenosis. Right Carotid: Moderate to severe atherosclerosis right carotid bifurcation and right carotid bulb , maximal stenosis of 45%, mild by NASCET criteria . Mild atherosclerosis distal cervical right and focal right artery, no hemodynamically significant stenosis. The common carotid , internal carotid, and external carotid arteries are patent. No evidence of dissection. Left Carotid: Moderate to severe atherosclerosis left carotid bifurcation left carotid bulb, maximal stenosis 46%, mild by NASCET criteria . The common carotid, internal carotid, and external carotid arteries are patent. No evidence of dissection. Vertebrals: The left vertebral artery is dominant. The right vertebral artery small with PICA termination. Mild atherosclerosis right vertebral artery origin, no hemodynamically significant stenosis. Mild atherosclerosis left vertebral artery origin, maximal stenosis 20 -30%. Intracranial Circulation: Concurrently obtained CTA head is dictated separately. Other: Large left pleural effusion is noted. Scattered groundglass densities visualized left upper lobe, likely representing subsegmental atelectasis/alveolar pulmonary edema. Intact midline sternotomy wires. Mild multilevel degenerative spondylosis of the visualized spine, no acute fracture or malalignment. Thyroid gland is heterogeneous with calcifications within the left lobe and a 1.5 cm hypodense lesion within the right lobe. IMPRESSION: 1. No CTA evidence of occlusion or dissection within the extracranial arteries. CTA of the head is dictated separately. Multifocal atherosclerosis as detailed above and summarized below. 2. Moderate to severe atherosclerosis right carotid bifurcation and right carotid bulb, maximal stenosis of 45%, mild by NASCET criteria . 3. Mild atherosclerosis distal cervical right and focal right artery, no hemodynamically significant stenosis. 4. Moderate to severe atherosclerosis left carotid bifurcation left carotid bulb , maximal stenosis 46%, mild by NASCET criteria 5. The left vertebral artery is dominant. The right vertebral artery small with PICA termination. 6. Mild atherosclerosis right vertebral artery origin, no hemodynamically significant stenosis. 7. Mild atherosclerosis left vertebral artery origin, maximal stenosis 20-30%. 8. Large left pleural effusion is noted. 9. Scattered groundglass densities visualized left upper lobe, likely representing subsegmental atelectasis/alveolar pulmonary edema. 10. Thyroid gland is heterogeneous with calcifications within the left lobe and a 1.5 cm hypodense lesion within the right lobe. The CT appearance is nonspecific. This can be further evaluated with thyroid ultrasound, which may be done non-emergently. Echocardiogram The left ventricular size is normal. Moderate to severe concentric left ventricular hypertrophy. Impaired relaxation consistent with grade 1 diastolic dysfunction. No regional wall motion abnormalities are seen. Paradoxical septal motion consistent with postoperative state. The right ventricular size is normal The left atrial volume index is normal Right atrial enlargement. The right atrium There is no evidence of aortic regurgitation. Mitral valve is normal. There is trace mitral regurgitation. The tricuspid valve appears structurally normal. Trace tricuspid regurgitation present. The pulmonic valve is normal. No mass or thrombus identified. - FOLLOW UP Follow Up: Patient presented with a TIA and symptoms have resolved. The patient was found to have ventriculomegaly consistent with normal pressure hydrocephalus given the patient's symptoms of dementia and ataxia. The patient was advised to go to the NPH clinic in [place] at [facility]. The patient also had abnormal nodule finding on his thyroid which needs to be followed up with a thyroid ultrasound. Patient was continued on his home meds and will follow up with his primary care physician. - TIME SPENT Time Spent in Discharge (Minutes): 35
== END 2017-12-03 14:10 | disposition home health service (06) | DRG 69 ==
LOC: ED 18:40 → MS2 21:23
PROVIDERS: ADMIT Specialist; ATTEND Internal Medicine
DX: R53.1 Weakness (principal); G93.89 Other specified disorders of brain; G45.9 Transient cerebral ischemic attack, unspecified; G91.2 (Idiopathic) normal pressure hydrocephalus; I10 Essential (primary) hypertension; E78.00 Pure hypercholesterolemia, unspecified; I11.9 Hypertensive heart disease without heart failure; E11.42 Type 2 diabetes mellitus with diabetic polyneuropathy; I35.0 Nonrheumatic aortic (valve) stenosis; Z79.82 Long term (current) use of aspirin; G47.33 Obstructive sleep apnea (adult) (pediatric); F32.9 Major depressive disorder, single episode, unspecified; F41.9 Anxiety disorder, unspecified; D64.9 Anemia, unspecified; E78.5 Hyperlipidemia, unspecified; E11.319 Type 2 diabetes mellitus with unspecified diabetic retinopathy without macular edema; F03.90 Unspecified dementia, unspecified severity, without behavioral disturbance, psychotic disturbance, mood disturbance, and anxiety; I25.10 Atherosclerotic heart disease of native coronary artery without angina pectoris; Z95.1 Presence of aortocoronary bypass graft; Z79.4 Long term (current) use of insulin; Z91.81 History of falling; Z80.42 Family history of malignant neoplasm of prostate; Z79.899 Other long term (current) drug therapy
CPT/HCPCS: 36415; 51701; 70450; 70496; 70498; 70551; 80048; 80053; 80061; 81001; 81003; 82550; 82553; 82607; 82728; 83036; 83540; 83615; 83690; 83721; 84466; 84484; 85025; 85044; 85610; 87086; 93005; 93306; 99283; 99284; 99285

== ENCOUNTER 2017-12-10 15:55 | Outpatient (CLI) | payer MEDICARE, MEDICAID | END 2017-12-10 15:56 | disposition critical access hospital (66) | LOC: EMS 15:55 | PROVIDERS: ATTEND Surgery | DX: R53.1 Weakness (principal) ==

== ENCOUNTER 2017-12-10 16:01 | Emergency (ER) | payer MEDICARE, MEDICAID ==
[2017-12-10 16:40] LABS: BASOPHILS # (AUTO) 0.1 10^3/uL (0.0-0.1); EOSINOPHILS # (AUTO) 0.2 10^3/uL (0.0-0.7); EOSINOPHILS % (AUTO) 2.4 %; HGB - HEMOGLOBIN 11.3 g/dL (14.0-18.0); LYMPHOCYTES % (AUTO) 12.9 %; MEAN CORPUSCULAR HEMOGLOBIN 28.5 pg (27.0-31.0); MEAN CORPUSCULAR HGB CONC 32.3 g/dL (32.0-36.0); MEAN CORPUSCULAR VOLUME 88.2 fL (80.0-94.0); MEAN PLATELET VOLUME 7.7 fL (7.4-11.4); MONOCYTES # (AUTO) 0.6 10^3/uL (0.0-1.0); MONOCYTES % (AUTO) 7.5 %; NEUTROPHILS # (AUTO) 5.7 10^3/uL (1.5-6.6); NEUTROPHILS % (AUTO) 76.2 %; PLT - PLATELET COUNT 397 10^3/uL (130-450); RED BLOOD COUNT 3.98 10^6/uL (4.70-6.10); RED CELL DISTRIBUTION WIDTH 18.1 % (12.0-15.0); WHITE BLOOD COUNT 7.5 x10^3/uL (4.8-10.8)
--- NOTE | 2017-12-10 16:50 | ED Physician Documentation ---
PD HPI FOCAL NEURO - Stated complaint Stated Complaint: CONFUSED/WEAK - Chief complaint Chief Complaint: Neuro - History obtained from History obtained from: Patient, Family ( by phone), EMS - History of Present Illness Timing - onset: Today (Recent admit for poss CVA and NPH. Dischg 1 week ago but since dischg his wobbliness and confusion. He slumped out of the chair today without obvious injury. unable to take care of him at home.) Review of Systems Unable to obtain: Confused PD PAST MEDICAL HISTORY - Past Medical History Cardiovascular: Hypertension, High cholesterol, Coronary artery disease Respiratory: None Neuro: Peripheral neuropathy Endocrine/Autoimmune: Type 2 diabetes Musculoskeletal: Quadriplegia Derm: None - Past Surgical History Past Surgical History: Yes General: Appendectomy Cardiovascular: CABG, Other - Present Medications Home Medications: Ambulatory Orders Medication Instructions Recorded Confirmed Losartan [Cozaar] 25 mg PO DAILY 01/30/14 12/03/17 Metformin HCl 1,000 mg PO BIDWM 01/30/14 12/03/17 Aspirin [Aspirin EC] 81 mg PO DAILY 08/12/17 12/03/17 Atorvastatin Calcium 40 mg PO QDDINNER 12/02/17 12/02/17 Citalopram [CeleXA] 10 mg PO DAILY 12/02/17 12/02/17 Metoprolol Tartrate [Lopressor] 25 mg PO BID 12/02/17 12/02/17 Omeprazole [PriLOSEC] 20 mg PO QDAC 12/02/17 12/02/17 - Allergies Allergies/Adverse Reactions: Allergies Allergy/AdvReac Type Severity Reaction Status Date / Time Penicillins AdvReac Unknown Verified 12/01/17 18:57 - Social History Does the pt smoke?: No Smoking Status: Never smoker Does the pt drink ETOH?: Yes Does the pt have substance abuse?: No - Immunizations Immunizations are current?: Yes - POLST Patient has POLST: No PD ED PE NORMAL - Vitals Vital signs reviewed: Yes - General General: No acute distress, Other (Alert, oreinted to person only) - HEENT HEENT: PERRL, EOMI - Neck Neck: Supple, no meningeal sign, No bony TTP - Cardiac Cardiac: RRR, No murmur - Respiratory Respiratory: No respiratory distress, Clear bilaterally - Abdomen Abdomen: Normal bowel sounds, Soft, Non tender - Back Back: No CVA TTP, No spinal TTP - Derm Derm: Normal color, Warm and dry - Neuro 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 Eye Opening: Spontaneous Motor: Obeys Commands Verbal: Confused GCS Score: 14 - Psych Psych: Normal mood, Normal affect Results - Vitals Vitals: Vital Signs - 24 hr 12/10/17 16:05 Temperature 36.5 C Heart Rate 72 Respiratory 16 Rate Blood Pressure 129/84 H O2 Saturation 95 Oxygen O2 Source Room air - Labs Labs: Laboratory Tests 12/10/17 12/10/17 16:37 16:37 WBC 7.5 RBC 3.98 L Hgb 11.3 L Hct 35.1 L MCV 88.2 MCH 28.5 MCHC 32.3 RDW 18.1 H Plt Count 397 MPV 7.7 Neut # 5.7 Lymph # 1.0 L [place] # 0.6 Eos # 0.2 Baso # 0.1 Absolute Nucleated RBC 0.00 Nucleated RBC % 0.0 Sodium 130 L Potassium 4.4 Chloride 95 L Carbon Dioxide 23 Anion Gap 12.0 BUN 14 Creatinine 0.7 Estimated GFR (MDRD) 111 Glucose 212 H Calcium 9.2 Total Bilirubin 0.4 AST 19 ALT 11 Alkaline Phosphatase 68 Total Protein 7.0 Albumin 3.4 Globulin 3.6 Albumin/Globulin Ratio 0.9 L Lipase 24 PD MEDICAL DECISION MAKING - ED course ED course: 72-year-old gentleman with sort of a rapid dementia, possibly normal pressure hydrocephalus based on previous imaging which would fit the old "wacky, wobbly, and wet" mnemonic. He has progressed to the point where his really cannot take care of him at home. Does not seem to be an acute injury today but I spoke with Dr. Latesha Pascual around 5:30 PM and they will look into transferring him to a facility with neurology coverage for a more complete workup. He called back around 6:10 PM, he had been accepted to [facility] by Dr. Balderrama. Cobras were completed. The was updated by phone and she will make her way into the hospital to sign the forms. Departure - Departure Disposition: 02 Transfer Acute Care Hosp Clinical Impression: Confusion, Weakness Altered mental status Qualifiers: Altered mental status type: delirium Qualified Code(s): R41.0 - Disorientation , unspecified Condition: Stable
[2017-12-10 16:52] LABS: ALBUMIN 3.4 g/dL (3.2-5.5); ALBUMIN/GLOBULIN RATIO 0.9 (1.0-2.2); BILIRUBIN,TOTAL 0.4 mg/dL (0.2-1.0); CALCIUM 9.2 mg/dL (8.5-10.3); CREATININE 0.7 mg/dL (0.6-1.2)
[2017-12-10 18:22] VITALS: BP 142/87
[2017-12-10 18:34] LABS: BILIRUBIN,URINE NEGATIVE (NEGATIVE); GLUCOSE, URINE (UA) NEGATIVE (NEGATIVE); KETONES,URINE (UA) NEGATIVE (NEGATIVE); LEUKOCYTE ESTERASE, URINE NEGATIVE (NEGATIVE); NITRITE,URINE NEGATIVE (NEGATIVE); OCCULT BLOOD,URINE NEGATIVE (NEGATIVE); PROTEIN,URINE NEGATIVE (NEGATIVE); UROBILINOGEN,URINE 0.2 (NORMAL) E.U./dL (NORMAL)
[2017-12-10 18:35] LABS: CLARITY,URINE CLEAR (CLEAR)
== END 2017-12-10 19:33 | disposition short-term general hospital (02) ==
LOC: EDUNIT# → ED 16:01
DX: R41.0 Disorientation, unspecified (principal); R53.1 Weakness; E11.42 Type 2 diabetes mellitus with diabetic polyneuropathy; I25.10 Atherosclerotic heart disease of native coronary artery without angina pectoris; I10 Essential (primary) hypertension; E78.00 Pure hypercholesterolemia, unspecified; G82.50 Quadriplegia, unspecified; Z95.1 Presence of aortocoronary bypass graft; Z79.82 Long term (current) use of aspirin
CPT/HCPCS: 36415; 80053; 81001; 81003; 83690; 85025; 87086; 99283; 99284; 99285

== ENCOUNTER 2017-12-10 19:35 | Outpatient (CLI) | payer MEDICARE, MEDICAID | END 2017-12-10 19:36 | disposition short-term general hospital (02) | LOC: EMS 19:35 | PROVIDERS: ATTEND Surgery | DX: G82.50 Quadriplegia, unspecified (principal); R53.1 Weakness | CPT/HCPCS: A0170; A0425; A0428; A0429 ==

== ENCOUNTER 2017-12-30 07:24 | Outpatient (CLI) | payer MEDICARE, MEDICAID | END 2017-12-30 07:25 | disposition EMS.NT | LOC: EMS 07:24 | PROVIDERS: ATTEND Surgery | DX: Z03.89 Encounter for observation for other suspected diseases and conditions ruled out (principal); W06.XXXA Fall from bed, initial encounter; Y92.032 Bedroom in apartment as the place of occurrence of the external cause ==

== ENCOUNTER 2018-01-02 18:05 | Outpatient (CLI) | payer MEDICARE, MEDICAID | END 2018-01-02 18:06 | disposition critical access hospital (66) | LOC: EMS 18:05 | PROVIDERS: ATTEND Surgery | DX: R06.02 Shortness of breath (principal) | CPT/HCPCS: A0425; A0429 ==

== ENCOUNTER 2018-01-02 18:13 | Inpatient (IN) | payer MEDICARE, MEDICAID ==
[2018-01-02] MEDS ORDERED: ONDANSETRON 4 MG/2 ML VIAL IVP STA (18:18)
[2018-01-02] MEDS ORDERED: ALBUTEROL NEB 2.5 MG/3 ML INH STA (18:18)
--- NOTE | 2018-01-02 18:20 | ED Physician Documentation ---
PD HPI DYSPNEA - Stated complaint Stated Complaint: CHOKING - History obtained from History obtained from: Patient, EMS - History of Present Illness Timing - onset: Other (72-year-old gentleman with history of dementia was at home tonight complaining of heartburn. He took a Tums and chewed it up and then started choking and sputtering and having some respiratory distress. Sats were okay in route.) Review of Systems Unable to obtain: Dementia PD PAST MEDICAL HISTORY - Past Medical History Cardiovascular: Hypertension, High cholesterol, Coronary artery disease Respiratory: None Neuro: Peripheral neuropathy Endocrine/Autoimmune: Type 2 diabetes Musculoskeletal: Quadriplegia Derm: None - Past Surgical History Past Surgical History: Yes General: Appendectomy Cardiovascular: CABG, Other - Present Medications Home Medications: Ambulatory Orders Medication Instructions Recorded Confirmed Losartan [Cozaar] 25 mg PO DAILY 01/30/14 12/03/17 Metformin HCl 1,000 mg PO BIDWM 01/30/14 12/03/17 Aspirin [Aspirin EC] 81 mg PO DAILY 08/12/17 12/03/17 Atorvastatin Calcium 40 mg PO QDDINNER 12/02/17 12/02/17 Citalopram [CeleXA] 10 mg PO DAILY 12/02/17 12/02/17 Metoprolol Tartrate [Lopressor] 25 mg PO BID 12/02/17 12/02/17 Omeprazole [PriLOSEC] 20 mg PO QDAC 12/02/17 12/02/17 - Allergies Allergies/Adverse Reactions: Allergies Allergy/AdvReac Type Severity Reaction Status Date / Time Penicillins AdvReac Unknown Verified 12/01/17 18:57 - Social History Does the pt smoke?: No Smoking Status: Never smoker Does the pt drink ETOH?: Yes Does the pt have substance abuse?: No - Immunizations Immunizations are current?: Yes - POLST Patient has POLST: No PD ED PE NORMAL - Vitals Vital signs reviewed: Yes - General General: Other (He is alert, oriented to person only, coughing and retching, vomiting.) - HEENT HEENT: PERRL, EOMI - Neck Neck: Supple, no meningeal sign, No bony TTP - Cardiac Cardiac: RRR, No murmur - Respiratory Respiratory: Other (Very rhonchorous lungs) - Abdomen Abdomen: Non tender - Derm Derm: Normal color, Warm and dry - Extremities Extremities: No edema, No calf tenderness / cord - Neuro Neuro: Other (He thinks it is 1930 something and he says he is 39 years old) Eye Opening: Spontaneous Motor: Obeys Commands Verbal: Confused GCS Score: 14 - Psych Psych: Normal mood, Normal affect Results - Vitals Vitals: Vital Signs - 24 hr 01/02/18 01/02/18 18:12 18:54 Temperature 37.3 C Heart Rate 118 H 116 H Respiratory 20 20 Rate Blood Pressure 181/98 H 181/98 H O2 Saturation 91 L 92 Oxygen O2 Source Nasal cannula - Labs Labs: Laboratory Tests 01/02/18 01/02/18 01/02/18 18:30 18:30 19:54 WBC 8.3 RBC 4.18 L Hgb 11.8 L Hct 36.0 L MCV 86.1 MCH 28.1 MCHC 32.7 RDW 18.2 H Plt Count 337 MPV 7.9 Neut # 6.6 Lymph # 1.0 L Potter # 0.5 Eos # 0.1 Baso # 0.1 Absolute Nucleated RBC 0.00 Nucleated RBC % 0.0 Sodium 132 L Potassium 4.0 Chloride 96 L Carbon Dioxide 25 Anion Gap 11.0 BUN 17 Creatinine 0.8 Estimated GFR (MDRD) 95 Glucose 182 H Lactic Acid 0.8 Calcium 9.1 Total Bilirubin 0.4 AST 16 ALT 13 Alkaline Phosphatase 67 Total Protein 7.6 Albumin 3.9 Globulin 3.7 Albumin/Globulin Ratio 1.1 Lipase 25 PD MEDICAL DECISION MAKING - ED course ED course: 72-year-old gentleman with diabetes and history of heart disease presents after an aspiration episode with a pretty dense left basilar pneumonia on x-ray. I spoke with the radiologist after the x-ray concerned that potentially he might have retained foreign material, specifically the chewed up Tums that he was eating at the time and the radiologist suggested that we do a CAT scan to make sure he did not need a bronchoscopy which was done in it without evidence of endobronchial material or debris but follow-up imaging was advised after the completion of treatment. He was placed on Rocephin and metronidazole for presumed aspiration pneumonia. He did have a need for supplemental oxygen in the department with sats in the high 80s. Call to Dr. Freedman, the hospitalist for admission at 8:18 PM. Departure - Departure Disposition: [facility] DC/Xfer Clinical Impression: S/P CABG (coronary artery bypass graft), History of aortic stenosis, Hypoxemia Aspiration pneumonia Qualifiers: Aspiration pneumonia type: due to regurgitated food Laterality: left Lung location: lower lobe of lung Qualified Code(s): J69.0 - Pneumonitis due to inhalation of food and vomit Type 2 diabetes mellitus Qualifiers: Diabetes mellitus long term care pharmacist insulin use: unspecified senior care insulin use status Diabetes mellitus complication status: with unspecified complications Qualified Code(s): E11.8 - Type 2 diabetes mellitus with unspecified complications Condition: Serious
--- NOTE | 2018-01-02 18:43 | XRAY Preliminary Report ---
Exam: XR CHEST 1 VIEW X-RAY IMPRESSION: 1. New left lung opacity consistent with pneumonia, atelectasis, small to moderate pleural effusion, or aspiration. [facility] SITE ID: [id number]
--- NOTE | 2018-01-02 18:43 | XRAY Report ---
EXAM: CHEST RADIOGRAPHY EXAM DATE: 01/02/2018 06:29 PM. CLINICAL HISTORY: Aspiration. COMPARISON: 08/12/2017. TECHNIQUE: 1 view. FINDINGS: Lungs/Pleura: There is an opacity at the left lung base with blunting of left costophrenic angle. The right lung appears clear. There is no pneumothorax. Mediastinum: There are findings of median sternotomy. There is mild/moderate aortic arch atherosclero tic calcification. Other: None. IMPRESSION: 1. New left lung opacity consistent with pneumonia, atelectasis, small to moderate pleural effusion, or aspiration. [facility] Referring Provider Line: [phone] SITE ID: [id number]
[2018-01-02 18:44] LABS: BASOPHILS # (AUTO) 0.1 10^3/uL (0.0-0.1); BASOPHILS % (AUTO) 0.9 %; EOSINOPHILS # (AUTO) 0.1 10^3/uL (0.0-0.7); EOSINOPHILS % (AUTO) 0.9 %; HGB - HEMOGLOBIN 11.8 g/dL (14.0-18.0); LYMPHOCYTES % (AUTO) 12.5 %; MEAN CORPUSCULAR HEMOGLOBIN 28.1 pg (27.0-31.0); MEAN CORPUSCULAR HGB CONC 32.7 g/dL (32.0-36.0); MEAN CORPUSCULAR VOLUME 86.1 fL (80.0-94.0); MEAN PLATELET VOLUME 7.9 fL (7.4-11.4); MONOCYTES # (AUTO) 0.5 10^3/uL (0.0-1.0); MONOCYTES % (AUTO) 6.2 %; NEUTROPHILS # (AUTO) 6.6 10^3/uL (1.5-6.6); NEUTROPHILS % (AUTO) 79.5 %; PLT - PLATELET COUNT 337 10^3/uL (130-450); RED BLOOD COUNT 4.18 10^6/uL (4.70-6.10); RED CELL DISTRIBUTION WIDTH 18.2 % (12.0-15.0); WHITE BLOOD COUNT 8.3 x10^3/uL (4.8-10.8)
[2018-01-02 18:57] LABS: ALBUMIN 3.9 g/dL (3.2-5.5); ALBUMIN/GLOBULIN RATIO 1.1 (1.0-2.2); BILIRUBIN,TOTAL 0.4 mg/dL (0.2-1.0); CALCIUM 9.1 mg/dL (8.5-10.3); CREATININE 0.8 mg/dL (0.6-1.2); TOTAL PROTEIN 7.6 g/dL (6.7-8.2)
[2018-01-02] MEDS ORDERED: metroNIDAZOLE 500 MG/100 ML 500 MG/100 ML BAG IV ONE (19:37)
[2018-01-02] MEDS ORDERED: cefTRIAXone 2 GM in SODIUM CHLORIDE 0.9% MINIBAG 100 ML IV STA (19:37)
--- NOTE | 2018-01-02 20:04 | CT Preliminary Report ---
Exam: CT CHEST W/O IMPRESSION: 1. No evidence of endobronchial debris nor foreign body. 2. Tiny right and moderate left pleural effusions. 3. Peripheral subsegmental consolidation/atelectasis involving the left lung. Further attention with follow-up chest x-rays recommended to confirm resolution following treatment. If these do not resolve , repeat noncontrast chest CT should be considered to exclude underlying mass lesions. 4. Mild cardiomegaly. Tiny pericardial effusion. [facility] SITE ID: [id number]
--- NOTE | 2018-01-02 20:08 | CT Report ---
EXAM: CT CHEST EXAM DATE: 01/02/2018 07:39 PM. CLINICAL HISTORY: Pneumonia. 3 days of respiratory distress. Patient choked on Tums today, possible a spiration of such. COMPARISONS: None. TECHNIQUE: Routine helical CT imaging was performed through the chest. IV contrast: None. Reconstruct ions: Coronal and sagittal. In accordance with CT protocol optimization, one or more of the following dose reduction techniques w ere utilized for this exam: automated exposure control, adjustment of mA and/or KV based on patient s ize, or use of iterative reconstructive technique. FINDINGS: Lungs/Pleura: Tiny right and moderate left pleural effusions. Normal lung volumes. No endobronchial debris. Subsegmental atelectasis or consolidation involving the lateral segment left upper lobe, lingula, and basilar segments left lower lobe. No pneumothorax. No cavitating lesion. Mediastinum: Mild cardiomegaly. Tiny pericardial effusion. Remote sternotomy and aortic valve placeme nt. No significant adenopathy. Bones: Several old left rib fractures. Visualized Abdomen: Unremarkable. Other: None. IMPRESSION: 1. No evidence of endobronchial debris nor foreign body. 2. Tiny right and moderate left pleural effusions. 3. Peripheral subsegmental consolidation/atelectasis involving the left lung. Further attention with follow-up chest x-rays recommended to confirm resolution following treatment. If these do not resolve , repeat noncontrast chest CT should be considered to exclude underlying mass lesions. 4. Mild cardiomegaly. Tiny pericardial effusion. [facility] Referring Provider Line: [phone] SITE ID: [id number]
[2018-01-02] MEDS ORDERED: TEMAZEPAM 15 MG CAPSULE PO PRN (21:02)
--- NOTE | 2018-01-02 21:36 | HISTORY & PHYSICAL EXAMINATION ---
Chief Complaint - Chief Complaint Chief Complaint: choking, shortness of breath History of Present Illness - Admitted From Admitted From:: Home - History Obtained From Records Reviewed: ED notes, radiology reports History obtained from: Patient and Exam Limitations: patient has been diagnosed with dementia and normal pressure hydrocephalus - History of Present Illness HPI Comment/Other: Mr. Alejandro Newton is a very pleasant 72-year-old gentleman who has a history of normal pressure hydrocephalus and dementia. He has had an eventful past 6 months which includes a 4 vessel coronary artery bypass and aortic valve replacement in September 2017. Following this the patient had an anesthesia reaction and became very agitated and his dementia was exacerbated. This was eventually controlled and the patient was returned home. A few weeks later the patient had a full workup for DVT which was essentially negative and then about a month ago the patient underwent went further testing for a TIA. Patient stopped standing around that time it was unclear if this was related to the normal pressure hydrocephalus. He was sent over to [place] for possible shunting and was diagnosed with dementia at that time. Earlier this evening Mr. Newton had some reflux and choked on the antacid. When his coughing did not stop and his breathing became labored his brought him to the emergency department where he was found to have a large left lower lobe pneumonia suggestive of aspiration. History - Past Medical History Cardiovascular: reports: Hypertension, High cholesterol, Coronary artery disease Respiratory: reports: None Neuro: reports: Dementia, Peripheral neuropathy, Other (Normal pressure hydrocephalus) Endocrine/Autoimmune: reports: Type 2 diabetes Psych: reports: Depression, Anxiety Derm: reports: None MRSA Hx?: No - Past Surgical History General: reports: Appendectomy Cardiovascular: reports: CABG, Other (Aortic valve replacement) - Family & Social History Family History: Mother: , Cancer (Mother of brain cancer), Father: Family History Comment/Other: The patient's relates that the patient's family has been very close lipped regarding their past medical history"the 'C' word was never used" referring to cancer. Patient's mother of brain cancer in the patient's father of old age. There is no other known family history. Living arrangement: At home Living Situation: With spouse/s.o. - Substance History Use: Uses substance without health or social issues: NONE Abuse: Recurrent use of substance despite neg consequences: NONE Dependence: Experiences withdrawal or developed tolerances: NONE - POLST Patient has POLST: No POLST Status: Full Code Meds/Allgy - Home Medications Home Medications: Ambulatory Orders Medication Instructions Recorded Confirmed Losartan [Cozaar] 25 mg PO DAILY 01/30/14 12/03/17 Metformin HCl 1,000 mg PO BIDWM 01/30/14 12/03/17 Aspirin [Aspirin EC] 81 mg PO DAILY 08/12/17 12/03/17 Atorvastatin Calcium 40 mg PO QDDINNER 12/02/17 12/02/17 Citalopram [CeleXA] 10 mg PO DAILY 12/02/17 12/02/17 Metoprolol Tartrate [Lopressor] 25 mg PO BID 12/02/17 12/02/17 Omeprazole [PriLOSEC] 20 mg PO QDAC 12/02/17 12/02/17 - Allergies Allergies/Adverse Reactions: Allergies Allergy/AdvReac Type Severity Reaction Status Date / Time Penicillins AdvReac Unknown Verified 12/01/17 18:57 Review of Systems - Constitutional Constitutional: denies: Fatigue, Fever, Chills, Malaise, Night sweats - Eyes Eyes: denies: Pain, Irritation, Blurred vision, Dipolpia - Ears, Nose & Throat Ears, Nose & Throat: denies: Ear pain, Tinnitus, Vertigo, Nosebleeds - Cardiovascular Cariovascular: denies: Irregular heart rate, Palpitations, Chest pain, Edema, Syncope - Respiratory Respiratory: reports: Cough, Sputum production, SOB at rest. denies: Wheezing, Snoring, Hemoptysis, Orthopnea - Gastrointestinal Gastrointestinal: denies: Abdominal pain, Abdominal distention, Constipation, Diarrhea, Change in bowel habits, Rectal bleeding - Genitourinary Genitourinary: denies: Dysuria, Frequency, Urgency, Hematuria - Musculoskeletal Musculoskeletal: denies: Muscle pain, Back pain, Muscle aches, Stiffness - Integumentary Integumentary: denies: Rash, Pruritis, Lesions, Dryness - Neurological Neurological: reports: Memory problems, Incoordination. denies: General weakness, Focal weakness, Headache, Dizziness - Psychiatric Psychiatric: denies: Depression, Anxiety, Suicidal, Hallucinations - Endocrine Endocrine: denies: Polyuria, Polydypsia, Polyphagia - Hematologic/Lymphatic Hematologic/Lymphatic: denies: Anemia, Bruising, Petechiae, Lymphadenopathy - All Other Systems All Other Systems: reports: Reviewed and negative Exam - Vital Signs Reviewed Vital Signs: Yes - Physical Exam General Appearance: positive: No acute distress, Alert Eyes Bilateral: positive: Normal inspection, PERRL, EOMI, No lid inflammation, Conjunctivae nml, No scleral icterus ENT: positive: ENT inspection nml, Pharynx nml, No signs of dehydration Neck: positive: Nml inspection, Thyroid nml, No JVD, Trachea midline. negative : Thyromegaly Respiratory: positive: Chest non-tender, No respiratory distress, Breath sounds nml. negative: Wheezes, Rales, Rhonchi Cardiovascular: positive: Regular rate & rhythm, No murmur, No gallop Peripheral Pulses: positive: 1+ Abdomen: positive: Non-tender, No organomegaly, Nml bowel sounds, No distention. negative: Guarding, Rebound Back: positive: Nml inspection. negative: CVA tenderness (R), CVA tenderness (L ) Skin: positive: Color nml, No rash, Warm, Dry. negative: Cyanosis Extremities: positive: Non-tender, Full ROM, Nml appearance, No pedal edema Neurologic/Psychiatric: positive: CN's nml (2-12), Motor nml, Sensation nml, Mood/affect nml, Disoriented to time Conclusion/Plan - Problem List (1) Aspiration pneumonia Conclusion/Plan: There is some history of normal pressure hydrocephalus and a recent diagnosis of dementia. The patient is not typically at a stage of his dementia where aspiration would be expected. We will place the patient on a puree/aspiration diet, obtain a swallow study, continue the patient on Rocephin and Flagyl, give supplemental oxygen and bronchodilators as necessary, and address any other issues as they arise. Qualifiers: Aspiration pneumonia type: due to regurgitated food Laterality: left Lung location: lower lobe of lung Qualified Code(s): J69.0 - Pneumonitis due to inhalation of food and vomit (2) S/P CABG (coronary artery bypass graft) Conclusion/Plan: The patient underwent a 4 vessel coronary artery bypass graft with aortic valve replacement in September. This does not appear to be related to that event. Patient also had a TIA last month. We will start the patient on daily aspirin for both the TIA and coronary artery disease. (3) Type 2 diabetes mellitus Conclusion/Plan: We will hold the patient's metformin and start him on sliding scale insulin for hyperglycemic coverage. Qualifiers: Diabetes mellitus mcc insulin use: unspecified watermelon inspector insulin use status Diabetes mellitus complication status: with unspecified complications Qualified Code(s): E11.8 - Type 2 diabetes mellitus with unspecified complications (4) Dyslipidemia Conclusion/Plan: We will continue the patient on atorvastatin for his dyslipidemia. (5) Hypertension Conclusion/Plan: I have restarted the patient on his home losartan and metoprolol dosing. I will monitor and if necessary add a diuretic. Qualifiers: Hypertension type: essential hypertension Qualified Code(s): I10 - Essential (primary) hypertension (6) Anxiety and depression Conclusion/Plan: I will continue the patient on his home Celexa. - Lab Results Lab results reviewed: Yes Fish Bones: 01/02/18 18:30 01/02/18 18:30 - Diagnostic Imaging Results Diagnostic Imaging Results: positive: Final report reviewed Diagnostic Imaging Results Comments: EXAM: CHEST RADIOGRAPHY EXAM DATE: 01/02/2018 06:29 PM. CLINICAL HISTORY: Aspiration. COMPARISON: 08/12/2017. TECHNIQUE: 1 view. FINDINGS: Lungs/Pleura: There is an opacity at the left lung base with blunting of left costophrenic angle. The right lung appears clear. There is no pneumothorax. Mediastinum: There are findings of median sternotomy. There is mild/moderate aortic arch atherosclerotic calcification. Other: None. IMPRESSION: 1. New left lung opacity consistent with pneumonia, atelectasis, small to moderate pleural effusion , or aspiration. EXAM: CT CHEST EXAM DATE: 01/02/2018 07:39 PM. CLINICAL HISTORY: Pneumonia. 3 days of respiratory distress. Patient choked on Tums today, possible aspiration of such. COMPARISONS: None. TECHNIQUE: Routine helical CT imaging was performed through the chest. IV contrast: None. Reconstructions: Coronal and sagittal. In accordance with CT protocol optimization, one or more of the following dose reduction techniques were utilized for this exam: automated exposure control, adjustment of mA and/or KV based on patient size, or use of iterative reconstructive technique. FINDINGS: Lungs/Pleura: Tiny right and moderate left pleural effusions. Normal lung volumes. No endobronchial debris. Subsegmental atelectasis or consolidation involving the lateral segment left upper lobe, lingula, and basilar segments left lower lobe. No pneumothorax. No cavitating lesion. Mediastinum: Mild cardiomegaly. Tiny pericardial effusion. Remote sternotomy and aortic valve placement. No significant adenopathy. Bones: Several old left rib fractures. Visualized Abdomen: Unremarkable. Other: None. IMPRESSION: 1. No evidence of endobronchial debris nor foreign body. 2. Tiny right and moderate left pleural effusions. 3. Peripheral subsegmental consolidation/atelectasis involving the left lung. Further attention with follow-up chest x-rays recommended to confirm resolution following treatment. If these do not resolve, repeat noncontrast chest CT should be considered to exclude underlying mass lesions. 4. Mild cardiomegaly. Tiny pericardial effusion. Core Measures - Anticipated LOS I expect patient to be DC'd or transferred within 96 hours.: Yes - DVT/VTE - Prophylaxis VTE/DVT Device ordered at admit?: Yes
[2018-01-02] MEDS: NS W/20 MEQ KCL 1,000 ML IV SCH (22:10)
[2018-01-02] MEDS: SODIUM CHLORIDE FLUSH 0.9% 10 ML SYRINGE IVP PRN (22:10)
[2018-01-02 22:55] LABS: HB2 TOTAL 13.4 g/dL; HEMOGLOBIN A1C 0.58 g/dL; HEMOGLOBIN A1C % 6.1 % (4.6-6.2)
[2018-01-03] MEDS: SODIUM CHLORIDE FLUSH 0.9% 10 ML SYRINGE IVP SCH ×4 (01:59→17:26)
[2018-01-03] MEDS: metroNIDAZOLE 500 MG/100 ML 500 MG/100 ML BAG IV SCH ×4 (01:59→20:38)
[2018-01-03 06:15] LABS: HGB - HEMOGLOBIN 10.7 g/dL (14.0-18.0); MEAN CORPUSCULAR HEMOGLOBIN 28.5 pg (27.0-31.0); MEAN CORPUSCULAR HGB CONC 32.6 g/dL (32.0-36.0); MEAN CORPUSCULAR VOLUME 87.4 fL (80.0-94.0); RED BLOOD COUNT 3.76 10^6/uL (4.70-6.10); RED CELL DISTRIBUTION WIDTH 17.9 % (12.0-15.0); WHITE BLOOD COUNT 15.4 x10^3/uL (4.8-10.8)
[2018-01-03 06:17] LABS: CALCIUM 8.7 mg/dL (8.5-10.3); CREATININE 0.8 mg/dL (0.6-1.2)
[2018-01-03] MEDS: PANTOPRAZOLE 40 MG TABLET PO SCH (06:45)
[2018-01-03] MEDS ORDERED: NON FORMULARY MED (Omeprazole [Prilosec] 20 MG) PO SCH (07:00)
[2018-01-03] MEDS ORDERED: INSULIN ASPART 300 UNIT/3 ML PEN SUBQ SCH (08:00)
[2018-01-03] MEDS: NS W/20 MEQ KCL 1,000 ML IV SCH ×2 (08:02→20:38)
--- NOTE | 2018-01-03 09:02 | PROVIDER PROGRESS NOTE ---
Assessment/Plan - Problem List (1) Aspiration pneumonia Qualifiers: Aspiration pneumonia type: due to regurgitated food Laterality: left Lung location: lower lobe of lung Qualified Code(s): J69.0 - Pneumonitis due to inhalation of food and vomit Assessment/Plan: The patient has a known history of progressive advanced dementia and has been steadily declining physically that has now affected his ability to swallow. Imaging shows a left lung base with small to moderate pleural effusion/ aspiration. The patient had a normal WBC count, afebrile, but had a witnessed aspiration event after taking "rolaids" just before admission. Plan: Speech evaluation is pending, continue IVF, IV antibiotics, and continue NPO. (2) S/P CABG (coronary artery bypass graft) Assessment/Plan: The patient is post op since 2017 for a 4-vessel CABG with no known complications since surgery with the exception of progressive dementia. Plan: Continue to monitor and treat PNA with IV antibiotics. (3) Type 2 diabetes mellitus Qualifiers: Diabetes mellitus chcf insulin use: unspecified watermelon inspector insulin use status Diabetes mellitus complication status: with unspecified complications Qualified Code(s): E11.8 - Type 2 diabetes mellitus with unspecified complications Assessment/Plan: The patient is a known diabetic and takes metformin at home, although current home list does not reflect this. A hemoglobin A1C was 6.1% and early AM sugar was 97. Plan: Hold metformin and give Lantus with ACHS blood sugar checks, SSI. (4) Anxiety and depression Assessment/Plan: The patient has a known history of this, but the dementia likely hides previous noted symptoms. He is prescribed Seroquel at home that is now on hold due to recent/current aspiration. Plan: Continue NPO status and only give essential medications. (5) Hypertension Qualifiers: Hypertension type: essential hypertension Qualified Code(s): I10 - Essential (primary) hypertension Assessment/Plan: The patient has a long standing history of this and has had a blood pressure today of 122/81 and somewhat tachy with heart rates in the 100 range. At home he is prescribed metoprolol, but since he has been NPO, it has been on hold. Plan: Continue to monitor vital signs and prescribe meds IV if indicated. - Current Meds Current Meds: Current Medications Generic Name Dose Route Start Last Admin Trade Name Freq PRN Reason Stop Dose Admin Metronidazole 500 mg in 100 mls @ 100 mls/hr 01/03/18 02:00 01/03/18 08:03 Flagyl 500 Mg/100 Ml IV 100 mls/hr Q6H BEN Administration Potassium Chloride/Sodium Chloride 1,000 mls @ 100 mls/hr 01/02/18 22:00 08:03 Normal Saline 0.9% W/20 Meq Kcl IV 0 mls/hr .Q10H BEN Infusion Pantoprazole Sodium 40 mg 01/03/18 07:00 01/03/18 06:45 Protonix PO 40 mg QDAC BEN Administration Sodium Chloride 10 ml 01/02/18 21:02 01/02/18 22:10 Normal Saline Flush 0.9% IVP 10 ml PRN PRN Administration NEEDED PER PROVIDER ORDERS Sodium Chloride 10 ml 01/03/18 01:00 01/03/18 01:59 Normal Saline Flush 0.9% IVP Not Given [id number],[id number],1700 BEN - Lab Result Lab results reviewed: Yes Fish Bone Diagrams: 01/04/18 04:55 01/04/18 04:55 - Diagnostic Imaging Results Diagnostic Imaging Results: Prelim report reviewed, Final report reviewed - Additional Planning Condition/Complexity: Stable Plan Discussed with:: Patient, Spouse Time Spent: 31-60 minutes Subjective - Subjective Patient Reports: No Complaints Nursing Reports: No Complaints Objective Vital Signs: Vital Signs - 24 hr 01/02/18 01/03/18 22:15 07:49 Temperature 36.9 C 37.6 C H Heart Rate [ 86 109 H Brachial] Respiratory 20 16 Rate Blood Pressure 138/79 H 122/72 [Right Brachial artery] O2 Saturation 96 96 Oxygen O2 Source Nasal cannula I&O (Last 24 Hrs): Intake and Output Totals x24h 01/01/18 01/02/18 01/03/18 23:59 23:59 23:59 Intake Total 100 1088.334 Balance 100 1088.334 General: Alert, No acute distress HEENT: Atraumatic Neck: Supple Neuro: Alert, Speech Slurred Cardiovascular: Regular rate Respiratory: Chest non-tender, Wheezes, Rhonchi Abdomen: Normal bowel sounds, Soft, No tenderness, No masses Genitourinary: Normal Inspection Extremities: No clubbing, No tenderness/swelling Skin: No rashes, No breakdown - Results Results: Laboratory Results WBC 15.4 x10^3/uL (4.8-10.8) H 01/03/18 05:56 RBC 3.76 10^6/uL (4.70-6.10) L 01/03/18 05:56 Hgb 10.7 g/dL (14.0-18.0) L 01/03/18 05:56 Hct 32.8 % (42.0-52.0) L 01/03/18 05:56 MCV 87.4 fL (80.0-94.0) 01/03/18 05:56 MCH 28.5 pg (27.0-31.0) 01/03/18 05:56 MCHC 32.6 g/dL (32.0-36.0) 01/03/18 05:56 RDW 17.9 % (12.0-15.0) H 01/03/18 05:56 Plt Count 283 10^3/uL (130-450) 01/03/18 05:56 MPV 8.0 fL (7.4-11.4) 01/03/18 05:56 Neut # 6.6 10^3/uL (1.5-6.6) 01/02/18 18:30 Lymph # 1.0 10^3/uL (1.5-3.5) L 01/02/18 18:30 [place] # 0.5 10^3/uL (0.0-1.0) 01/02/18 18:30 Eos # 0.1 10^3/uL (0.0-0.7) 01/02/18 18:30 Baso # 0.1 10^3/uL (0.0-0.1) 01/02/18 18:30 Absolute Nucleated RBC 0.00 x10^3/uL 01/02/18 18:30 Nucleated RBC % 0.0 /100WBC 01/02/18 18:30 Sodium 132 mmol/L (135-145) L 01/03/18 05:56 Potassium 4.7 mmol/L (3.5-5.0) 01/03/18 05:56 Chloride 98 mmol/L (101-111) L 01/03/18 05:56 Carbon Dioxide 26 mmol/L (21-32) 01/03/18 05:56 Anion Gap 8.0 (6-13) 01/03/18 05:56 BUN 20 mg/dL (6-20) 01/03/18 05:56 Creatinine 0.8 mg/dL (0.6-1.2) 01/03/18 05:56 Estimated GFR (MDRD) 95 (>89) 01/03/18 05:56 Glucose 179 mg/dL (70-100) H 01/03/18 05:56 Glycated Hemoglobin 6.1 % (4.6-6.2) 01/02/18 18:30 Estim Average Glucose 128 (70-100) H 01/02/18 18:30 Lactic Acid 0.8 mmol/L (0.5-2.2) 01/02/18 19:54 Calcium 8.7 mg/dL (8.5-10.3) 01/03/18 05:56 Total Bilirubin 0.4 mg/dL (0.2-1.0) 01/02/18 18:30 AST 16 IU/L (10-42) 01/02/18 18:30 ALT 13 IU/L (10-60) 01/02/18 18:30 Alkaline Phosphatase 67 IU/L (42-121) 01/02/18 18:30 Total Protein 7.6 g/dL (6.7-8.2) 01/02/18 18:30 Albumin 3.9 g/dL (3.2-5.5) 01/02/18 18:30 Globulin 3.7 g/dL (2.1-4.2) 01/02/18 18:30 Albumin/Globulin Ratio 1.1 (1.0-2.2) 01/02/18 18:30 Lipase 25 U/L (22-51) 01/02/18 18:30
[2018-01-03] MEDS: CITALOPRAM 10 MG TABLET PO SCH ×2 (09:32→10:07)
[2018-01-03] MEDS: ASPIRIN EC 81 MG TABLET PO SCH ×2 (09:32→10:07)
[2018-01-03] MEDS: POLYETHYLENE GLYCOL 3350 17 GM PACKET PO SCH ×2 (09:34→10:08)
[2018-01-03] MEDS: LOSARTAN 50 MG TABLET PO SCH (09:38)
[2018-01-03] MEDS: METOPROLOL TARTRATE 25 MG TABLET PO SCH ×2 (10:06→21:27)
[2018-01-03] MEDS: INSULIN REGULAR HUMAN 100 UNIT/1 ML 10 ML MDV SUBQ SCH ×2 (13:19→18:29)
--- NOTE | 2018-01-03 13:54 | XRAY Report ---
FRONTAL CHEST: 01/03/2018. CLINICAL INDICATION: Aspiration pneumonia. COMPARISON: 01/02/2018. FINDINGS: Frontal view of the chest demonstrates stable changes of cardiac surgery. Left effusion and basilar airspace disease is unchanged. No pneumothorax is seen. IMPRESSION: STABLE LEFT EFFUSION AND BASILAR AIRSPACE DISEASE. STABLE POSTOPERATIVE CHANGES. TD: 01/03/2018 13:53
[2018-01-03] MEDS ORDERED: ATORVASTATIN 40 MG TABLET PO SCH (17:00)
[2018-01-03] MEDS: cefTRIAXone 2 GM in SODIUM CHLORIDE 0.9% MINIBAG 100 ML IV SCH (20:06)
[2018-01-04] MEDS: INSULIN REGULAR HUMAN 100 UNIT/1 ML 10 ML MDV SUBQ SCH ×4 (00:10→17:07)
[2018-01-04] MEDS: metroNIDAZOLE 500 MG/100 ML 500 MG/100 ML BAG IV SCH ×4 (02:19→19:42)
[2018-01-04 05:15] LABS: HGB - HEMOGLOBIN 10.1 g/dL (14.0-18.0); MEAN CORPUSCULAR HEMOGLOBIN 28.4 pg (27.0-31.0); MEAN CORPUSCULAR HGB CONC 31.9 g/dL (32.0-36.0); MEAN CORPUSCULAR VOLUME 89.1 fL (80.0-94.0); MEAN PLATELET VOLUME 7.9 fL (7.4-11.4); RED BLOOD COUNT 3.55 10^6/uL (4.70-6.10); RED CELL DISTRIBUTION WIDTH 17.8 % (12.0-15.0); WHITE BLOOD COUNT 6.4 x10^3/uL (4.8-10.8)
[2018-01-04 05:17] LABS: CALCIUM 8.7 mg/dL (8.5-10.3); CREATININE 0.8 mg/dL (0.6-1.2)
[2018-01-04] MEDS: SODIUM CHLORIDE FLUSH 0.9% 10 ML SYRINGE IVP SCH ×3 (06:11→16:49)
[2018-01-04] MEDS: PANTOPRAZOLE 40 MG TABLET PO SCH (07:02)
[2018-01-04] MEDS: NS W/20 MEQ KCL 1,000 ML IV SCH ×2 (07:05→15:00)
--- NOTE | 2018-01-04 07:21 | XRAY Report ---
EXAM: CHEST RADIOGRAPHY EXAM DATE: 01/04/2018 05:32 AM. CLINICAL HISTORY: Aspiration pneumonia. COMPARISON: 01/02/2018. 01/03/2018. TECHNIQUE: 1 view. FINDINGS: Lungs/Pleura: Borderline vascular congestion. Left pleural effusion and dense left basilar opacity ar e again seen. Patchy right basilar opacity also evident. No pneumothorax. Mediastinum: Heart size and mediastinal contour are stable. Other: Changes are again seen from median sternotomy. IMPRESSION: 1. Left pleural effusion and dense left basilar opacity without significant change. 2. Patchy right basilar consolidation/atelectasis, unchanged. 3. Borderline vascular congestion. [facility] Referring Provider Line: [phone] SITE ID: [id number]
[2018-01-04] MEDS: NYSTATIN POWDER 15 GM TOP SCH ×2 (08:58→19:42)
[2018-01-04] MEDS: LOSARTAN 50 MG TABLET PO SCH (10:28)
[2018-01-04] MEDS: ASPIRIN EC 81 MG TABLET PO SCH (10:28)
[2018-01-04] MEDS: CITALOPRAM 10 MG TABLET PO SCH (10:28)
[2018-01-04] MEDS: POLYETHYLENE GLYCOL 3350 17 GM PACKET PO SCH (10:29)
[2018-01-04] MEDS: METOPROLOL TARTRATE 25 MG TABLET PO SCH (10:30)
--- NOTE | 2018-01-04 12:49 | PROVIDER PROGRESS NOTE ---
Assessment/Plan - Problem List (1) Aspiration pneumonia Qualifiers: Aspiration pneumonia type: due to regurgitated food Laterality: left Lung location: lower lobe of lung Qualified Code(s): J69.0 - Pneumonitis due to inhalation of food and vomit Assessment/Plan: The patient has a known history of progressive advanced dementia and has been steadily declining physically that has now affected his ability to swallow. Imaging shows a left lung base with small to moderate pleural effusion/ aspiration. The patient had a normal WBC count, that became elevated at 15 and normal again today, afebrile today, and a mild elevated on 01/03/18. He had a witnessed aspiration event after taking "rolaids" just before admission. Daily chest x-rays that are slightly improved since admission, but today there is borderline vascular congestion, without significant changes to previously noted aspiration PNA. Plan: Continue IVF that were decreased, IV antibiotics, and continue NPO. (2) S/P CABG (coronary artery bypass graft) Assessment/Plan: The patient is post op since 2017 for a 4-vessel CABG with no known complications since surgery with the exception of progressive dementia. Plan: Continue to monitor and treat PNA with IV antibiotics. (3) Type 2 diabetes mellitus Qualifiers: Diabetes mellitus half-way insulin use: unspecified maintenance director insulin use status Diabetes mellitus complication status: with unspecified complications Qualified Code(s): E11.8 - Type 2 diabetes mellitus with unspecified complications Assessment/Plan: The patient is a known diabetic and takes metformin at home, although current home list does not reflect this. A hemoglobin A1C was 6.1% and early AM sugar was 97. Plan: Hold metformin and perform ACHS blood sugar checks, SSI. (4) Anxiety and depression Assessment/Plan: The patient has a known history of this, but the dementia likely hides previous noted symptoms. He is prescribed Seroquel at home that is now on hold due to recent/current aspiration. Plan: Continue NPO status and all meds have been changed to IV form. (5) Hypertension Qualifiers: Hypertension type: essential hypertension Qualified Code(s): I10 - Essential (primary) hypertension Assessment/Plan: The patient has a long standing history of this and has had a blood pressure overnight of 175/100 and somewhat tachy with heart rates in the 100 range. At home he is prescribed metoprolol and losartan, but since he has been NPO. Due to ongoing uncontrolled hr and b/p, IV hydralazine and IV metoprolol have been prescribed. Plan: Continue to monitor vital signs and give meds IV for now. - Current Meds Current Meds: Current Medications Generic Name Dose Route Start Last Admin Trade Name Freq PRN Reason Stop Dose Admin Aspirin 81 mg 01/03/18 09:00 01/04/18 10:28 Ecotrin PO Not Given DAILY BEN Atorvastatin Calcium 40 mg 01/03/18 17:00 01/03/18 17:26 Lipitor PO Not Given QDDINNER BEN Citalopram Hydrobromide 10 mg 01/03/18 09:00 01/04/18 10:28 Celexa PO Not Given DAILY BEN Ceftriaxone Sodium 2 gm/ 100 mls @ 200 mls/hr 01/03/18 20:00 01/03/18 20:36 Sodium Chloride IV Infused DAILY@2000 BEN Infusion Metronidazole 500 mg in 100 mls @ 100 mls/hr 01/03/18 02:00 01/04/18 09:00 Flagyl 500 Mg/100 Ml IV Infused Q6H BEN Infusion Potassium Chloride/Sodium Chloride 1,000 mls @ 100 mls/hr 01/02/18 22:00 11:00 Normal Saline 0.9% W/20 Meq Kcl IV 100 mls/hr .Q10H BEN Infusion Insulin Human Regular 1 - 5 unit 01/03/18 14:00 01/04/18 12:00 Novolin R SUBQ Not Given Q6HR BEN Protocol Losartan Potassium 25 mg 01/03/18 09:00 01/04/18 10:28 Cozaar PO Not Given DAILY BEN Metoprolol Tartrate 25 mg 01/03/18 09:00 01/04/18 10:30 Lopressor PO Not Given BID BEN Nystatin 1 applic 01/04/18 09:00 01/04/18 08:58 Nystop TOP 1 applic BID BEN Administration Pantoprazole Sodium 40 mg 01/03/18 07:00 01/04/18 07:02 Protonix PO Not Given QDAC BEN Polyethylene Glycol 17 gm 01/03/18 09:00 01/04/18 10:29 Miralax PO Not Given DAILY BEN Sodium Chloride 10 ml 01/02/18 21:02 01/02/18 22:10 Normal Saline Flush 0.9% IVP 10 ml PRN PRN Administration NEEDED PER PROVIDER ORDERS Sodium Chloride 10 ml 01/03/18 01:00 01/04/18 10:33 Normal Saline Flush 0.9% IVP 10 ml 0100,0900,1700 BEN Administration - Lab Result Lab results reviewed: Yes Fish Bone Diagrams: 01/04/18 04:55 01/04/18 04:55 - EKG Results EKG Interpreted Independently: Yes - Diagnostic Imaging Results Diagnostic Imaging Results: Final report reviewed Diagnostic Imaging Results Comments: EXAM: CHEST RADIOGRAPHY EXAM DATE: 01/04/2018 05:32 AM. CLINICAL HISTORY: Aspiration pneumonia. COMPARISON: 01/02/2018. 01/03/2018. TECHNIQUE: 1 view. FINDINGS: Lungs/Pleura: Borderline vascular congestion. Left pleural effusion and dense left basilar opacity are again seen. Patchy right basilar opacity also evident. No pneumothorax. Mediastinum: Heart size and mediastinal contour are stable. Other: Changes are again seen from median sternotomy. IMPRESSION: 1. Left pleural effusion and dense left basilar opacity without significant change. 2. Patchy right basilar consolidation/atelectasis, unchanged. 3. Borderline vascular congestion. - Additional Planning Condition/Complexity: Stable My Orders: My Active Orders 01/03/18 14:00 Insulin Regular Human [NovoLIN R] 1 - 5 unit SUBQ Q6HR 01/04/18 08:26 Palliative Care Consult [CONS] Routine 01/04/18 09:00 Nystatin [Nystop] 1 applic TOP BID 01/04/18 12:33 Barium Swallow Modified [Modified Barium Swallow W/SP] [FL] Routine Consult/Specialty: Other (Palliative care consulted today.) Plan Discussed with:: Patient, Family Time Spent: 31-60 minutes Subjective - Subjective Patient Reports: No Complaints Nursing Reports: No Complaints Objective Vital Signs: Vital Signs - 24 hr 01/03/18 01/03/18 01/03/18 13:21 13:59 16:00 Temperature 36.9 C 37.3 C Heart Rate [ 103 H Brachial] Respiratory 14 Rate Blood Pressure Blood Pressure 122/81 H [Right Brachial artery] O2 Saturation 93 94 01/03/18 01/04/18 01/04/18 23:57 00:00 07:33 Temperature 36.8 C 36.8 C Heart Rate [ 100 102 H Brachial] Respiratory 18 19 Rate Blood Pressure Blood Pressure 175/103 H 151/96 H 161/95 H [Right Brachial artery] O2 Saturation 96 97 01/04/18 10:30 Temperature Heart Rate [ Brachial] Respiratory Rate Blood Pressure 161/95 H Blood Pressure [Right Brachial artery] O2 Saturation Oxygen O2 Source Room air I&O (Last 24 Hrs): Intake and Output Totals x24h 01/02/18 01/03/18 01/04/18 23:59 23:59 23:59 Intake Total 100 2486.667 1483.333 Balance 100 2486.667 1483.333 General: Alert, No acute distress HEENT: Atraumatic Neck: Supple, No JVD Lymphatic: no adenopathy Neuro: Alert, Disoriented, Focal Deficits, Speech Slurred Cardiovascular: Regular rate, Normal S1, Normal S2 Respiratory: Chest non-tender, Wheezes, Rhonchi Abdomen: Normal bowel sounds, Soft, No tenderness, No masses Genitourinary: Normal Inspection Extremities: No clubbing, No tenderness/swelling Skin: No significant lesion Comments/Notes: bilateral axilla yeasty folds. - Results Results: Laboratory Results WBC 6.4 x10^3/uL (4.8-10.8) 01/04/18 04:55 RBC 3.55 10^6/uL (4.70-6.10) L 01/04/18 04:55 Hgb 10.1 g/dL (14.0-18.0) L 01/04/18 04:55 Hct 31.7 % (42.0-52.0) L 01/04/18 04:55 MCV 89.1 fL (80.0-94.0) 01/04/18 04:55 MCH 28.4 pg (27.0-31.0) 01/04/18 04:55 MCHC 31.9 g/dL (32.0-36.0) L 01/04/18 04:55 RDW 17.8 % (12.0-15.0) H 01/04/18 04:55 Plt Count 249 10^3/uL (130-450) 01/04/18 04:55 MPV 7.9 fL (7.4-11.4) 01/04/18 04:55 Neut # 6.6 10^3/uL (1.5-6.6) 01/02/18 18:30 Lymph # 1.0 10^3/uL (1.5-3.5) L 01/02/18 18:30 [place] # 0.5 10^3/uL (0.0-1.0) 01/02/18 18:30 Eos # 0.1 10^3/uL (0.0-0.7) 01/02/18 18:30 Baso # 0.1 10^3/uL (0.0-0.1) 01/02/18 18:30 Absolute Nucleated RBC 0.00 x10^3/uL 01/02/18 18:30 Nucleated RBC % 0.0 /100WBC 01/02/18 18:30 Sodium 135 mmol/L (135-145) 01/04/18 04:55 Potassium 4.1 mmol/L (3.5-5.0) 01/04/18 04:55 Chloride 101 mmol/L (101-111) 01/04/18 04:55 Carbon Dioxide 27 mmol/L (21-32) 01/04/18 04:55 Anion Gap 7.0 (6-13) 01/04/18 04:55 BUN 16 mg/dL (6-20) 01/04/18 04:55 Creatinine 0.8 mg/dL (0.6-1.2) 01/04/18 04:55 Estimated GFR (MDRD) 95 (>89) 01/04/18 04:55 Glucose 92 mg/dL (70-100) 01/04/18 04:55 Glycated Hemoglobin 6.1 % (4.6-6.2) 01/02/18 18:30 Estim Average Glucose 128 (70-100) H 01/02/18 18:30 Lactic Acid 0.8 mmol/L (0.5-2.2) 01/02/18 19:54 Calcium 8.7 mg/dL (8.5-10.3) 01/04/18 04:55 Total Bilirubin 0.4 mg/dL (0.2-1.0) 01/02/18 18:30 AST 16 IU/L (10-42) 01/02/18 18:30 ALT 13 IU/L (10-60) 01/02/18 18:30 Alkaline Phosphatase 67 IU/L (42-121) 01/02/18 18:30 Total Protein 7.6 g/dL (6.7-8.2) 01/02/18 18:30 Albumin 3.9 g/dL (3.2-5.5) 01/02/18 18:30 Globulin 3.7 g/dL (2.1-4.2) 01/02/18 18:30 Albumin/Globulin Ratio 1.1 (1.0-2.2) 01/02/18 18:30 Lipase 25 U/L (22-51) 01/02/18 18:30
[2018-01-04] MEDS ORDERED: hydrALAZINE INJ 20 MG/ML VIAL IVP SCH (13:00)
[2018-01-04] MEDS: METOPROLOL 5 MG/5 ML VIAL IVP SCH ×2 (13:15→18:59)
[2018-01-04] MEDS: PANTOPRAZOLE 40 MG VIAL IVP SCH (13:27)
[2018-01-04] MEDS ORDERED: FUROSEMIDE 40 MG/4 ML VIAL IVP SCH (13:38)
--- NOTE | 2018-01-04 14:02 | CONSULTATION NOTE ---
Palliative Care Consultation - Referral Referring Provider: Maren TOURE Time of Visit: [id number] Referral setting: Hospitalized patient Referral Reason: Aspiration pneumonia/dysphagia/dementia/goals of care - Information Sources Records reviewed: RN notes reviewed, Previous records reviewed History/Review of Systems obtained from: Patient, Family ( Precious) Exam limitations: Clinical condition (patient with STM issues;) - History of Present Illness Brief History of Present Illness: This is a 72-year-old gentleman with a complex history, and a very difficult last few months. Patient originally presented with cognitive deficits and issues several years ago, these had culminated in a change of mental status in February 2016. 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 His neuro/cognitive status worsened the most after his CABG in September 2017. He tolerated anesthesia quite poorly, and has never recovered as far as his short-term memory, increasing neuropsychiatric behaviors of agitation, sundowners, some OCD and paranoia. These have been progressive in nature. He did present in 12-01-17 with symptoms of a left hemiplegia, it did resolve, but again had continued functional decline and cognitive changes. He was being seen by [facility], and was working on improving his function. Unfortunately on patient presented again with altered mental status, he was then transferred to [facility], for further workup for his normal pressure hydrocephalus and cognitive decline, he was deemed not a candidate for a shunt, and was told had Alzheimer's dementia. Patient has had ongoing concerns as on discharge from [facility], has been mostly bedbound. Previous to this he was ambulatory with a walker. He has lower extremity weakness of unknown etiology, and now presents with severe dysphagia. Home management has been very difficult , patient sundowning syndrome, was made caregiving complicated and frustrating. Patient had taken at very significant decline, had actually been considering transitioning to hospice, but has improved in the last 2 weeks. Improvement has meant he is been more bright, interactive, more his "normal" self as far as personality. He does though remain with short-term memory, issues and bedbound. Over the last couple weeks he has had increased difficulty with cough this is worse in the evening, and last night culminated into a choking episode which ended up calling 911. He was found to have aspiration pneumonia, a large left pleural effusion, and remains pleasantly confused as far as place and time, does not show any insight into his deficits, or able to express goals or wishes. He only reports he feels "optimistic". Patient does not present with decision-making capacity, unable to recognize his current condition, decisions pending, or weigh benefits and burdens or implications of choices. This was shared with , and she is in agreement. Still awaiting further workup with speech therapy, does present with severe deficits, and may or may not be looking at the question of tube feeding support. Medical/Surgical History - Past Medical History Cardiovascular: reports: Hypertension, Coronary artery disease, Valve disorder ( aortic stenosis) Respiratory: reports: Pneumonia Neuro: reports: Dementia (normal pressure hydrocephalus), TIA Endocrine/Autoimmune: reports: Type 2 diabetes GI: reports: Hiatal hernia, Chronic constipation : reports: Other Psych: reports: Depression, Anxiety, Other (paranoia/ocd behaviors) Derm: reports: None MRSA Hx?: No - Past Surgical History General: reports: Appendectomy Cardiovascular: reports: CABG - Substance History Use: Uses substance without health or social issues: NONE Abuse: Recurrent use of substance despite neg consequences: NONE Dependence: Experiences withdrawal or developed tolerances: NONE Social History - Living Situation Living arrangement: At home Living Situation: With spouse/s.o., With caregiver(s) (yanely Hermosillo lives with them [employer] worker) Support System: Patient has been bedbound since last admit, hospital bed in the middle of the room. has been doing most of the caregiving, yanely Hermosillo with 80 hours [employer], has been complicated by patient cycling of "sundowners" and behaviors. Patient does have [facility], providing focus on rehab. 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 He Lidia have been together for greater than 50 years, they do have 5 children together, and one child between the 2 of them. Family History - Family History Family History: Mother: (mother brain tumor), Father: , Cancer (prostate cancer 86) Medications/Allergies - Medications Active Medication List: Active Medications Citalopram Hydrobromide (Celexa) 10 mg PO DAILY [facility]EN Last Admin: 01/04/18 10:28 Dose: Not Given Furosemide (Lasix Inj 40 Mg Vial) 40 mg IVP ONCE [facility] Stop: 01/04/18 14:38 Hydralazine HCl (Apresoline Inj) 10 mg IVP Q6H [facility] Ceftriaxone Sodium 2 gm/ (Sodium Chloride) 100 mls @ 200 mls/hr IV DAILY@2000 [facility] Last Infusion: 01/03/18 20:36 Dose: Infused Metronidazole (Flagyl 500 Mg/100 Ml) 500 mg in 100 mls @ 100 mls/hr IV Q6H [facility] Last Infusion: 01/04/18 09:00 Dose: Infused Potassium Chloride/Sodium Chloride (Normal Saline 0.9% W/20 Meq Kcl) 1,000 mls @ 75 mls/hr IV .[id number] [facility] Insulin Human Regular (Novolin R) 1 - 5 unit SUBQ Q6HR [facility] PRN Reason: Protocol Last Admin: 01/04/18 12:00 Dose: Not Given Metoprolol Tartrate (Lopressor Inj) 5 mg IVP Q6HR [facility] Last Admin: 01/04/18 13:15 Dose: 5 mg Nystatin (Nystop) 1 applic TOP BID [facility] Last Admin: 01/04/18 08:58 Dose: 1 applic Pantoprazole Sodium (Protonix) 40 mg IVP QDAC [facility] Last Admin: 01/04/18 13:27 Dose: 40 mg Sodium Chloride (Normal Saline Flush 0.9%) 10 ml IVP PRN PRN PRN Reason: NEEDED PER PROVIDER ORDERS Last Admin: 01/02/18 22:10 Dose: 10 ml Sodium Chloride (Normal Saline Flush 0.9%) 10 ml IVP 0100,0900,1700 [facility] Last Admin: 01/04/18 10:33 Dose: 10 ml Temazepam (Restoril) 15 mg PO QPM PRN PRN Reason: Insomnia Aspirin [Aspirin EC] 81 mg PO DAILY 08/12/17 Atorvastatin Calcium 40 mg PO QDDINNER 12/02/17 Citalopram [CeleXA] 10 mg PO DAILY 12/02/17 Metoprolol Tartrate [Lopressor] 25 mg PO BID 12/02/17 Omeprazole [PriLOSEC] 20 mg PO QDAC 12/02/17 Lactulose [Lactulose] 20 gm PO DAILY 01/03/18 QUEtiapine [SEROquel] 25 mg PO QPM 01/03/18 - Allergies Allergies/Adverse Reactions: Allergies Allergy/AdvReac Type Severity Reaction Status Date / Time Penicillins AdvReac Unknown Verified 12/01/17 18:57 Review of Systems - Constitutional Constitutional: reports: Fatigue, Weakness, Weight loss (lost about 40-45 pounds since heart surgery; this has been intentional with smaller portions and resulted in better BS control) - Eyes Eyes: reports: Vision loss - Ears, Nose & Throat Ears, Nose & Throat: reports: Other (increased coughing with eating; worse in evening with neuropsychiatric behaviors and fatigue) - Cardiovascular Cardiovascular: denies: Chest pain, Edema - Respiratory Respiratory: reports: Cough. denies: SOB at rest, SOB with exertion - Gastrointestinal Gastrointestinal: reports: Constipation (no bowel movement since Monday; patient with severe constipation problems; needing high doses of MOM; has tried other bowel programs with little success) - Genitourinary Genitourinary: reports: Incontinence - Musculoskeletal Musculoskeletal: reports: Muscle weakness, Other (has been bedbound since [facility] stay; no lower extremity strength; having difficulty with cueing) - Neurological Neurological: reports: General weakness, Memory problems - Psychiatric Psychiatric: reports: Delusions, Behavior disturbances - Endocrine Endocrine: reports: Diabetes type 2 - Hematologic/Lymphatic Hematologic/Lymphatic: reports: Anemia - All Other Systems All Other Systems: reports: Reviewed and negative Physical Exam - Vital Signs Vital Signs: Vital Signs x48h Temp Pulse Resp BP BP Pulse Ox 01/04/18 13:21 76 18 149/97 H 95 01/04/18 13:20 80 18 161/84 H 95 01/04/18 13:15 159/98 H 01/04/18 10:30 161/95 H 01/04/18 07:33 36.8 C 102 H 19 161/95 H 97 - Physical Exam General Appearance: positive: Mild distress (perseverating on recent swallowing evaluation questions;), Anxious Eyes Bilateral: positive: Normal inspection ENT: positive: No signs of dehydration. negative: Pharyngeal erythema Neck: positive: No JVD, Trachea midline Cardiovascular: positive: Regular rate & rhythm Respiratory: positive: Rales (crackles in right base; left diminished) Abdomen: positive: Non-tender, Soft, Abnml bowel sounds (diminished bowel tones) Skin: positive: Pallor, Dryness Extremities: positive: No pedal edema Neurologic/Psychiatric: positive: Mood/affect nml (very jovial; attempts to carry on conversation with some matching of content though answers not accurate; ), Disoriented to place, Disoriented to time, Weakness Palliative Care - POLST Patient has POLST: No POLST Status: DNR (see palliative converation) Pain: No pain Constipation: Yes, Unmanaged - Palliative Care Discussion: Patient presents with no insight into his current condition, he is quite cooperative and attempting to answer questions. Can speak in full sentences, is very social, and presents as jovial. Patient does have behavioral disturbances that cycle into the evening, some delusions, agitation, twists/pulls as sheets. was given antipyschotic by PCP but did not initiate when read side effects , nor given education why it was prescribed, has not been able to get into see PCP as has been bedbound. Met with separately, reviewed the journey, has been very difficult particularly after his heart surgery. Reports it was overwhelming and they had to be there 24 7 because otherwise he have to be restrained. It took him quite a while to recover from this, he has had ongoing increasing problems related to his care needs, severe constipation, now is bedbound, and is cycling neuropsychiatric behaviors. She does feel they have a routine that is still defined as quality of life, does exhibit caregiver fatigue, but is aware of patient's fragile status. Explored goals of care, counseling regarding CODE STATUS, addressed preliminary questions around tube feedings, and reviewed what might be of help in the future. Patient receiving home health, had not felt able to place him secondary to his neuropsychiatric behaviors, but does feel he is somewhat better this hospital stay. She may benefit from a respite stay, as well as he might benefit from more intensive therapy. He also reviewed his rapid decline, increasing complications, and what her goals were for him now and in the future regarding end-of-life. She wants to continue to explore things that may have been support for both his quality and quantity of life, but is in agreement his CODE STATUS should be DO NOT RESUSCITATE. We did discuss the [facility], I provided her with hard choices for loving people, information sheet on palliative care, and the [facility] form to review for our next meeting. Results - Lab Results Lab results reviewed: Yes Fish Bones: 01/04/18 04:55 01/04/18 04:55 Lab and Imaging Results: Lab Results x24hrs 01/04/18 01/04/18 Range/Units 04:55 04:55 WBC 6.4 (4.8-10.8) x10^3/uL RBC 3.55 L (4.70-6.10) 10^6/uL Hgb 10.1 L (14.0-18.0) g/dL Hct 31.7 L (42.0-52.0) % MCV 89.1 (80.0-94.0) fL MCH 28.4 (27.0-31.0) pg MCHC 31.9 L (32.0-36.0) g/dL RDW 17.8 H (12.0-15.0) % Plt Count 249 (130-450) 10^3/uL MPV 7.9 (7.4-11.4) fL Sodium 135 (135-145) mmol/L Potassium 4.1 (3.5-5.0) mmol/L Chloride 101 (101-111) mmol/L Carbon Dioxide 27 (21-32) mmol/L Anion Gap 7.0 (6-13) BUN 16 (6-20) mg/dL Creatinine 0.8 (0.6-1.2) mg/dL Estimated GFR (MDRD) 95 (>89) Glucose 92 (70-100) mg/dL Calcium 8.7 (8.5-10.3) mg/dL Impression and Recommendations - Palliative Care Impression: This is a 72-year-old gentleman who presents with severe dyshpagia, aspiration pneumonia, recent onset of LE weakness and bedbound status, and ongoing cognitive decline with behavioral disturbances. Palliative care to assist with establishing goals of care, and provide ongoing support. Recommendations/Counseling Done: 1. Dysphagia, severe. Patient with progressive neuro/neurocognitive decline, now presents with aspiration pneumonia. Awaiting results of further testing regarding abililty to meet caloric needs. Counseling and addressed questions from regarding the continuum including tube feedings. 2. Dementia with behavioral disturbances. Patient's neuropsychiatric behaviors of cycling with sundowning, agitation, paranoia, appears to be impacting both patient's care and caregiver fatigue. Counseling regarding some education initiated regarding antipsychotics and management, would mostly likely benefit from some medication management, patient currently not at baseline. Would recommend follow-up from palliative care for home management and medication education and titration. 3. Constipation. Patient does appear to have somewhat a neuro genic bowel description, with significant difficulty with bowel medications and long periods of time in between going. Have been managing with high doses of milk of mag, reports last bowel movement was several days ago. Would recommend aggressive bowel management, and at minimum initiating MOM today. 4.Advanced care planning. Counseling with regarding goals of care, transition to do not attempt resuscitation status, initiated conversation regarding [facility], and teasing out long-term goals and anticipatory guidance given in the context of his rapid decline. Currently would focus on things to improve his quantity and quality of life, but end-of-life would like him home with support of hospice. Palliative care to continue to follow to assist with decision making/education regarding ongoing trajectory and goals.
[2018-01-04] MEDS: hydrALAZINE INJ 20 MG/ML VIAL IVP SCH ×2 (16:38→21:06)
[2018-01-04] MEDS: BISACODYL 10 MG SUPP PR SCH (16:49)
[2018-01-04] MEDS: cefTRIAXone 2 GM in SODIUM CHLORIDE 0.9% MINIBAG 100 ML IV SCH (19:01)
[2018-01-04] MEDS ORDERED: MIN OIL/DIMETHICON/COCONUT OIL 92 GM TUBE TOP PRN (20:57)
[2018-01-05] MEDS: INSULIN REGULAR HUMAN 100 UNIT/1 ML 10 ML MDV SUBQ SCH ×4 (00:11→17:50)
[2018-01-05] MEDS: METOPROLOL 5 MG/5 ML VIAL IVP SCH ×4 (00:13→18:01)
[2018-01-05] MEDS: SODIUM CHLORIDE FLUSH 0.9% 10 ML SYRINGE IVP SCH ×3 (00:20→16:42)
[2018-01-05] MEDS: NS W/20 MEQ KCL 1,000 ML IV SCH ×2 (00:20→16:41)
[2018-01-05] MEDS: metroNIDAZOLE 500 MG/100 ML 500 MG/100 ML BAG IV SCH ×4 (03:42→20:39)
[2018-01-05] MEDS: hydrALAZINE INJ 20 MG/ML VIAL IVP SCH ×4 (05:10→21:53)
[2018-01-05 05:34] LABS: MEAN CORPUSCULAR HEMOGLOBIN 28.5 pg (27.0-31.0); MEAN CORPUSCULAR HGB CONC 32.8 g/dL (32.0-36.0); MEAN PLATELET VOLUME 7.8 fL (7.4-11.4); RED BLOOD COUNT 3.86 10^6/uL (4.70-6.10); RED CELL DISTRIBUTION WIDTH 17.9 % (12.0-15.0); WHITE BLOOD COUNT 8.4 x10^3/uL (4.8-10.8)
[2018-01-05 05:39] LABS: CALCIUM 9.1 mg/dL (8.5-10.3); CREATININE 0.6 mg/dL (0.6-1.2); MAGNESIUM 1.6 mg/dL (1.7-2.8)
[2018-01-05] MEDS: PANTOPRAZOLE 40 MG VIAL IVP SCH (06:22)
[2018-01-05] MEDS: SODIUM CHLORIDE FLUSH 0.9% 10 ML SYRINGE IVP PRN (06:22)
[2018-01-05] MEDS: CITALOPRAM 10 MG TABLET PO SCH (09:22)
[2018-01-05] MEDS: BISACODYL 10 MG SUPP PR SCH (09:22)
[2018-01-05] MEDS: NYSTATIN POWDER 15 GM TOP SCH ×2 (09:22→22:06)
[2018-01-05] MEDS: SALINE ENEMA 133 ML BOTTLE RC SCH (09:23)
--- NOTE | 2018-01-05 17:53 | XRAY Report ---
MODIFIED BARIUM SWALLOW: 01/05/2018 CLINICAL INDICATION: Coughing fits, evaluate aspiration. FINDINGS: Various consistencies of barium were prepared and administered in conjunction with Speech Pathology. There was no evidence of penetration or aspiration with any administered consistency. Please also refer to full report from Speech Pathology. IMPRESSION: NO EVIDENCE OF PENETRATION OR ASPIRATION. FLUOROSCOPY TIME: 3 minutes 19 seconds; 1 spot image obtained (cinefluoroscopy recorded). TD: 01/05/2018 17:53
[2018-01-05] MEDS ORDERED: LIDOCAINE 2% URO-JET 5 ML SYRINGE UR PRN (18:39)
--- NOTE | 2018-01-05 18:44 | PROVIDER PROGRESS NOTE ---
Assessment/Plan - Problem List (1) Aspiration pneumonia Qualifiers: Aspiration pneumonia type: due to regurgitated food Laterality: left Lung location: lower lobe of lung Qualified Code(s): J69.0 - Pneumonitis due to inhalation of food and vomit Assessment/Plan: The patient has a known history of progressive advanced dementia and has been steadily declining physically that has now affected his ability to swallow. He had a witnessed aspiration event after taking "rolaids" just before admission. Daily chest x-rays that are slightly improved since admission. The patient underwent a barium swallow study and speech therapy recommends close observation with thick liquid/ground foods. Due to the patient's inability to follow commands, this may prove to be a difficult task. Plan: Continue IVF that were decreased, IV antibiotics, and start recommended diet with an order for a "feeder". (2) S/P CABG (coronary artery bypass graft) Assessment/Plan: The patient is post op since 2017 for a 4-vessel CABG with no known complications since surgery with the exception of progressive dementia. Plan: Continue to monitor and treat PNA with IV antibiotics. (3) Type 2 diabetes mellitus Qualifiers: Diabetes mellitus chcf insulin use: unspecified termite treater insulin use status Diabetes mellitus complication status: with unspecified complications Qualified Code(s): E11.8 - Type 2 diabetes mellitus with unspecified complications Assessment/Plan: The patient is a known diabetic and takes metformin at home, although current home list does not reflect this. A hemoglobin A1C was 6.1% and early AM sugar was 92. Plan: Hold metformin and perform ACHS blood sugar checks, SSI. (4) Anxiety and depression Assessment/Plan: The patient has a known history of this, but the dementia likely hides previous noted symptoms. He is prescribed Seroquel at home that is now on hold due to recent/current aspiration. Plan: Continue to monitor for worsening symptoms. (5) Hypertension Qualifiers: Hypertension type: essential hypertension Qualified Code(s): I10 - Essential (primary) hypertension Assessment/Plan: The patient has a long standing history of this and the lowest blood pressure reported was 130/77 and somewhat tachy with heart rates in the 100 range. At home he is prescribed metoprolol and losartan, but since he has been NPO. Due to ongoing uncontrolled hr and b/p, IV hydralazine and IV metoprolol have been prescribed. Plan: Continue to monitor vital signs and give meds IV for now. - Current Meds Current Meds: Current Medications Generic Name Dose Route Start Last Admin Trade Name Freq PRN Reason Stop Dose Admin Bisacodyl 10 mg 01/04/18 17:00 01/05/18 09:22 Dulcolax Supp ND Not Given DAILY BEN Citalopram Hydrobromide 10 mg 01/03/18 09:00 01/05/18 09:22 Celexa PO Not Given DAILY [facility]EN Hydralazine HCl 10 mg 01/04/18 16:00 01/05/18 16:41 Apresoline Inj IVP 10 mg Q6H [facility] Administration Ceftriaxone Sodium 2 gm/ 100 mls @ 200 mls/hr 01/03/18 20:00 01/04/18 19:31 Sodium Chloride IV Infused DAILY@2000 [facility] Infusion Metronidazole 500 mg in 100 mls @ 100 mls/hr 01/03/18 02:00 01/05/18 15:00 Flagyl 500 Mg/100 Ml IV Infused Q6H [facility] Infusion Potassium Chloride/Sodium Chloride 1,000 mls @ 75 mls/hr 01/04/18 13:38 01/05 16:41 Normal Saline 0.9% W/20 Meq Kcl IV 75 mls/hr .[id number] BEN Administration Insulin Human Regular 1 - 5 unit 01/03/18 14:00 01/05/18 17:50 Novolin R SUBQ Not Given Q6HR [facility] Protocol Metoprolol Tartrate 5 mg 01/04/18 13:00 01/05/18 18:01 Lopressor Inj IVP 5 mg Q6HR [facility] Administration Mineral Oil 1 applic 01/04/18 20:57 01/05/18 05:11 Cavilon TOP 1 unit PRN PRN Administration Skin Care Nystatin 1 applic 01/04/18 09:00 01/05/18 09:22 Nystop TOP 1 applic BID BEN Administration Pantoprazole Sodium 40 mg 01/04/18 13:00 01/05/18 06:22 Protonix IVP 40 mg QDAC BEN Administration Sodium Biphosphate/Sodium Phosphate 133 ml 01/05/18 09:00 01/05/18 09:23 Fleets Saline Enema RC Not Given DAILY BEN Sodium Chloride 10 ml 01/02/18 21:02 01/05/18 06:22 Normal Saline Flush 0.9% IVP 10 ml PRN PRN Administration NEEDED PER PROVIDER ORDERS Sodium Chloride 10 ml 01/03/18 01:00 01/05/18 16:42 Normal Saline Flush 0.9% IVP 10 ml 0100,0900,1700 BEN Administration - Lab Result Lab results reviewed: Yes Fish Bone Diagrams: 01/06/18 06:27 01/06/18 06:27 - EKG Results EKG Interpreted Independently: Yes - Diagnostic Imaging Results Diagnostic Imaging Results: Prelim report reviewed, Final report reviewed - Additional Planning Condition/Complexity: Stable My Orders: My Active Orders 01/04/18 20:57 Min Oil/Dimeth/Coconut Oil Crm [Cavilon] 1 applic TOP PRN PRN 01/05/18 08:00 Evaluate and Treat PT [PT] Routine 01/05/18 09:00 Saline Enema [Fleets Saline Enema] 133 ml RC DAILY 01/05/18 13:59 Blood Glucose POC [RC] 0000,0600,1200,1800 Initiate Hypoglycemia Protocol [RC] .protocol 01/05/18 18:38 Bladder Scan [RC] ENDSHIFT 01/05/18 18:39 Straight Catheter Insertion [RC] PRN Lidocaine Uro-Jet 2% [Xylocaine Uro-Jet 2%] 2.5 ml UR Q2H PRN 01/06/18 05:00 BNP - B-NATRIURETIC PEPTIDE [IAI] DAILYLAB MAGNESIUM [CHEM] DAILYLAB 01/07/18 05:00 BNP - B-NATRIURETIC PEPTIDE [IAI] DAILYLAB MAGNESIUM [CHEM] DAILYLAB Consult/Specialty: Other (speech therapy) Plan Discussed with:: Patient, Family, Spouse Time Spent: 31-60 minutes Subjective - Subjective Patient Reports: No Complaints Nursing Reports: No Complaints Objective Vital Signs: Vital Signs - 24 hr 01/04/18 01/04/18 01/05/18 18:59 21:06 00:03 Temperature 37.1 C Heart Rate [ 112 H Brachial] Respiratory 20 Rate Blood Pressure 155/91 H 159/91 H Blood Pressure 153/89 H [Right Brachial artery] O2 Saturation 94 01/05/18 01/05/18 01/05/18 00:13 05:10 05:14 Temperature 37.1 C Heart Rate [ 107 H Brachial] Respiratory 20 Rate Blood Pressure 153/89 H 134/86 H Blood Pressure 134/86 H [Right Brachial artery] O2 Saturation 93 04/27/18 04/27/18 04/27/18 06:28 08:00 09:23 Temperature 37.2 C Heart Rate [ 105 H Brachial] Respiratory 16 Rate Blood Pressure 144/81 H 149/78 H Blood Pressure 149/78 H [Right Brachial artery] O2 Saturation 94 01/05/18 01/05/18 01/05/18 13:00 13:03 15:48 Temperature 37.4 C 37.6 C H Heart Rate [ 114 H 106 H Brachial] Respiratory 18 18 Rate Blood Pressure 145/84 H Blood Pressure 145/84 H 130/77 [Right Brachial artery] O2 Saturation 92 95 01/05/18 01/05/18 16:41 18:01 Temperature Heart Rate [ Brachial] Respiratory Rate Blood Pressure 127/75 149/85 H Blood Pressure [Right Brachial artery] O2 Saturation Oxygen O2 Source Room air I&O (Last 24 Hrs): Intake and Output Totals x24h 01/03/18 01/04/18 01/05/18 23:59 23:59 23:59 Intake Total 2486.667 2389.500 1550.0 Output Total 0 Balance 2486.667 2389.500 1550.0 General: Alert, No acute distress HEENT: Atraumatic, Mucous membr. moist/pink Neck: Supple, No thyromegaly Lymphatic: no adenopathy Neuro: Alert, Disoriented, Focal Deficits, Speech Slurred Cardiovascular: Regular rate, Other (tachy, systolic murmur) Respiratory: Chest non-tender, Wheezes, Rhonchi Abdomen: Normal bowel sounds, Soft, No tenderness, No hepatospenomegaly, No masses Genitourinary: Normal Inspection Extremities: No clubbing, No cyanosis, No edema, No tenderness/swelling Skin: No rashes, No significant lesion - Results Results: Laboratory Results WBC 8.4 x10^3/uL (4.8-10.8) 01/05/18 05:00 RBC 3.86 10^6/uL (4.70-6.10) L 01/05/18 05:00 Hgb 11.0 g/dL (14.0-18.0) L 01/05/18 05:00 Hct 33.6 % (42.0-52.0) L 01/05/18 05:00 MCV 87.0 fL (80.0-94.0) 01/05/18 05:00 MCH 28.5 pg (27.0-31.0) 01/05/18 05:00 MCHC 32.8 g/dL (32.0-36.0) 01/05/18 05:00 RDW 17.9 % (12.0-15.0) H 01/05/18 05:00 Plt Count 314 10^3/uL (130-450) 01/05/18 05:00 MPV 7.8 fL (7.4-11.4) 01/05/18 05:00 Neut # 6.6 10^3/uL (1.5-6.6) 01/02/18 18:30 Lymph # 1.0 10^3/uL (1.5-3.5) L 01/02/18 18:30 [place] # 0.5 10^3/uL (0.0-1.0) 01/02/18 18:30 Eos # 0.1 10^3/uL (0.0-0.7) 01/02/18 18:30 Baso # 0.1 10^3/uL (0.0-0.1) 01/02/18 18:30 Absolute Nucleated RBC 0.00 x10^3/uL 01/02/18 18:30 Nucleated RBC % 0.0 /100WBC 01/02/18 18:30 Sodium 135 mmol/L (135-145) 01/05/18 05:00 Potassium 3.8 mmol/L (3.5-5.0) 01/05/18 05:00 Chloride 101 mmol/L (101-111) 01/05/18 05:00 Carbon Dioxide 24 mmol/L (21-32) 01/05/18 05:00 Anion Gap 10.0 (6-13) 01/05/18 05:00 BUN 14 mg/dL (6-20) 01/05/18 05:00 Creatinine 0.6 mg/dL (0.6-1.2) 01/05/18 05:00 Estimated GFR (MDRD) 132 (>89) 01/05/18 05:00 Glucose 97 mg/dL (70-100) 01/05/18 05:00 Glycated Hemoglobin 6.1 % (4.6-6.2) 01/02/18 18:30 Estim Average Glucose 128 (70-100) H 01/02/18 18:30 Lactic Acid 0.8 mmol/L (0.5-2.2) 01/02/18 19:54 Calcium 9.1 mg/dL (8.5-10.3) 01/05/18 05:00 Magnesium 1.6 mg/dL (1.7-2.8) L 01/05/18 05:00 Total Bilirubin 0.4 mg/dL (0.2-1.0) 01/02/18 18:30 AST 16 IU/L (10-42) 01/02/18 18:30 ALT 13 IU/L (10-60) 01/02/18 18:30 Alkaline Phosphatase 67 IU/L (42-121) 01/02/18 18:30 B-Natriuretic Peptide 222 pg/mL (5-100) H 01/05/18 05:00 Total Protein 7.6 g/dL (6.7-8.2) 01/02/18 18:30 Albumin 3.9 g/dL (3.2-5.5) 01/02/18 18:30 Globulin 3.7 g/dL (2.1-4.2) 01/02/18 18:30 Albumin/Globulin Ratio 1.1 (1.0-2.2) 01/02/18 18:30 Lipase 25 U/L (22-51) 01/02/18 18:30
[2018-01-05] MEDS: cefTRIAXone 2 GM in SODIUM CHLORIDE 0.9% MINIBAG 100 ML IV SCH (19:53)
[2018-01-06] MEDS: INSULIN REGULAR HUMAN 100 UNIT/1 ML 10 ML MDV SUBQ SCH ×3 (00:06→11:44)
[2018-01-06] MEDS: SODIUM CHLORIDE FLUSH 0.9% 10 ML SYRINGE IVP SCH ×3 (00:07→16:19)
[2018-01-06] MEDS: METOPROLOL 5 MG/5 ML VIAL IVP SCH ×4 (00:28→19:06)
[2018-01-06] MEDS: SODIUM CHLORIDE FLUSH 0.9% 10 ML SYRINGE IVP PRN ×4 (00:29→21:28)
[2018-01-06] MEDS: metroNIDAZOLE 500 MG/100 ML 500 MG/100 ML BAG IV SCH ×4 (01:54→20:27)
[2018-01-06] MEDS: hydrALAZINE INJ 20 MG/ML VIAL IVP SCH ×4 (03:58→21:27)
[2018-01-06 06:34] LABS: HGB - HEMOGLOBIN 10.8 g/dL (14.0-18.0); MEAN CORPUSCULAR HEMOGLOBIN 28.1 pg (27.0-31.0); MEAN CORPUSCULAR HGB CONC 32.1 g/dL (32.0-36.0); MEAN CORPUSCULAR VOLUME 87.7 fL (80.0-94.0); MEAN PLATELET VOLUME 7.1 fL (7.4-11.4); RED BLOOD COUNT 3.86 10^6/uL (4.70-6.10); RED CELL DISTRIBUTION WIDTH 18.3 % (12.0-15.0); WHITE BLOOD COUNT 6.9 x10^3/uL (4.8-10.8)
[2018-01-06 06:41] LABS: CALCIUM 8.8 mg/dL (8.5-10.3); CREATININE 0.6 mg/dL (0.6-1.2); MAGNESIUM 1.6 mg/dL (1.7-2.8)
[2018-01-06] MEDS ORDERED: MAGNESIUM SULFATE 2 GRAM 2 GM/50 ML BAG IV SCH (08:00)
[2018-01-06] MEDS: NS W/20 MEQ KCL 1,000 ML IV SCH ×2 (08:08→23:55)
[2018-01-06] MEDS: POTASSIUM CHLORIDE 20 MEQ/15 ML UDC PO SCH (08:14)
[2018-01-06] MEDS: PANTOPRAZOLE 40 MG VIAL IVP SCH (08:14)
[2018-01-06] MEDS: CITALOPRAM 10 MG TABLET PO SCH (08:14)
[2018-01-06] MEDS: MAGNESIUM OXIDE 400 MG TABLET PO SCH (08:14)
[2018-01-06] MEDS: BISACODYL 10 MG SUPP PR SCH (08:15)
[2018-01-06] MEDS: SALINE ENEMA 133 ML BOTTLE RC SCH (08:15)
[2018-01-06] MEDS: NYSTATIN POWDER 15 GM TOP SCH ×2 (08:15→21:29)
--- NOTE | 2018-01-06 08:19 | PROVIDER PROGRESS NOTE ---
Assessment/Plan - Problem List (1) Aspiration pneumonia Qualifiers: Aspiration pneumonia type: due to regurgitated food Laterality: left Lung location: lower lobe of lung Qualified Code(s): J69.0 - Pneumonitis due to inhalation of food and vomit Assessment/Plan: The patient has a known history of progressive advanced dementia and has been steadily declining physically that has now affected his ability to swallow. He had a witnessed aspiration event after taking "rolaids" just before admission. Daily chest x-rays that are slightly improved since admission. The patient underwent a barium swallow study and speech therapy recommends close observation with thick liquid/ground foods. Due to the patient's inability to follow commands, this may prove to be a difficult task. Plan: Continue IVF that are providing gentle hydration, IV antibiotics, and continue recommended diet with an order for a "feeder". (2) S/P CABG (coronary artery bypass graft) Assessment/Plan: The patient is post op since 2017 for a 4-vessel CABG with no known complications since surgery with the exception of progressive dementia. Plan: Continue to monitor and treat PNA with IV antibiotics. (3) Type 2 diabetes mellitus Qualifiers: Diabetes mellitus terminal system operator insulin use: unspecified terminal system operator insulin use status Diabetes mellitus complication status: with unspecified complications Qualified Code(s): E11.8 - Type 2 diabetes mellitus with unspecified complications Assessment/Plan: The patient is a known diabetic and takes metformin at home, although current home list does not reflect this. A hemoglobin A1C was 6.1% and early AM sugar was 105. Plan: Hold metformin and perform ACHS blood sugar checks, SSI. (4) Anxiety and depression Assessment/Plan: The patient has a known history of this, but the dementia likely hides previous noted symptoms. He is prescribed Seroquel at home that is now on hold due to recent/current aspiration. Plan: Continue to monitor for worsening symptoms and Seroquel will be resumed for this evening. (5) Hypertension Qualifiers: Hypertension type: essential hypertension Qualified Code(s): I10 - Essential (primary) hypertension Assessment/Plan: The patient has a long standing history of this and he had a blood pressure of 140/80 and somewhat tachy with a heart rate of 107. At home he is prescribed metoprolol and losartan, but since he has been NPO. Due to ongoing uncontrolled hr and b/p, IV hydralazine and IV metoprolol have been prescribed. Plan: Continue to monitor vital signs and give meds IV for now. - Current Meds Current Meds: Current Medications Generic Name Dose Route Start Last Admin Trade Name Freq PRN Reason Stop Dose Admin Bisacodyl 10 mg 01/04/18 17:00 01/06/18 08:15 Dulcolax Supp [place] Not Given DAILY BEN Citalopram Hydrobromide 10 mg 01/03/18 09:00 01/06/18 08:14 Celexa PO 10 mg DAILY BEN Administration Hydralazine HCl 10 mg 01/04/18 16:00 01/06/18 03:58 Apresoline Inj IVP 10 mg Q6H BEN Administration Ceftriaxone Sodium 2 gm/ 100 mls @ 200 mls/hr 01/03/18 20:00 01/05/18 20:23 Sodium Chloride IV Infused DAILY@2000 BEN Infusion Metronidazole 500 mg in 100 mls @ 100 mls/hr 01/03/18 02:00 01/06/18 08:14 Flagyl 500 Mg/100 Ml IV 100 mls/hr Q6H BEN Administration Potassium Chloride/Sodium Chloride 1,000 mls @ 75 mls/hr 01/04/18 13:38 01/06 08:08 Normal Saline 0.9% W/20 Meq Kcl IV 75 mls/hr .[id number] BEN Administration Insulin Human Regular 1 - 5 unit 01/03/18 14:00 01/06/18 06:46 Novolin R SUBQ Not Given Q6HR BEN Protocol Lidocaine HCl 2.5 ml 01/05/18 18:39 01/05/18 22:31 Xylocaine Uro-Jet 2% UR 2.5 ml Q2H PRN Administration PAIN Magnesium Oxide 400 mg 01/06/18 08:00 01/06/18 08:14 Mag Ox PO 400 mg DAILYWM BEN Administration Metoprolol Tartrate 5 mg 01/04/18 13:00 01/06/18 05:58 Lopressor Inj IVP 5 mg Q6HR BEN Administration Mineral Oil 1 applic 01/04/18 20:57 01/05/18 05:11 Cavilon TOP 1 unit PRN PRN Administration Skin Care Nystatin 1 applic 01/04/18 09:00 01/06/18 08:15 Nystop TOP 1 applic BID BEN Administration Pantoprazole Sodium 40 mg 01/04/18 13:00 01/06/18 08:14 Protonix IVP 40 mg QDAC BEN Administration Potassium Chloride 20 meq 01/06/18 08:00 01/06/18 08:14 PO 20 meq DAILYWM BEN Administration Sodium Biphosphate/Sodium Phosphate 133 ml 01/05/18 09:00 01/06/18 08:15 Fleets Saline Enema RC Not Given DAILY BEN Sodium Chloride 10 ml 01/02/18 21:02 01/06/18 00:29 Normal Saline Flush 0.9% IVP 10 ml PRN PRN Administration NEEDED PER PROVIDER ORDERS Sodium Chloride 10 ml 01/03/18 01:00 01/06/18 08:15 Normal Saline Flush 0.9% IVP 10 ml 0100,0900,1700 BEN Administration - Lab Result Lab results reviewed: Yes Fish Bone Diagrams: 01/08/18 05:21 01/08/18 05:21 - EKG Results EKG Interpreted Independently: Yes - Diagnostic Imaging Results Diagnostic Imaging Results: Prelim report reviewed, Final report reviewed - Additional Planning Condition/Complexity: Stable My Orders: My Active Orders 01/05/18 08:00 Evaluate and Treat PT [PT] Routine 01/05/18 09:00 Saline Enema [Fleets Saline Enema] 133 ml RC DAILY 01/05/18 13:59 Blood Glucose POC [RC] 0000,0600,1200,1800 Initiate Hypoglycemia Protocol [RC] .protocol 01/05/18 18:38 Bladder Scan [RC] ENDSHIFT 01/05/18 18:39 Straight Catheter Insertion [RC] PRN Lidocaine Uro-Jet 2% [Xylocaine Uro-Jet 2%] 2.5 ml UR Q2H PRN 01/05/18 19:08 Acetaminophen 1,000 mg/100 ml [Ofirmev] 100 ml IV Q6HR 01/06/18 08:00 Magnesium Oxide [Mag Ox] 400 mg PO DAILYWM Magnesium Sulfate 2 Gram [Magnesium Sulfate] 2 gm in 50 ml IV ONCE Potassium Chloride Oral Soln 20 meq PO DAILYWM 01/07/18 05:00 BNP - B-NATRIURETIC PEPTIDE [IAI] DAILYLAB MAGNESIUM [CHEM] DAILYLAB Consult/Specialty: Other (speech therapy) Plan Discussed with:: Patient, Spouse Time Spent: 31-60 minutes Subjective - Subjective Patient Reports: No Complaints Nursing Reports: No Complaints Objective Vital Signs: Vital Signs - 24 hr 01/05/18 01/05/18 01/05/18 09:23 13:00 13:03 Temperature 37.4 C Heart Rate [ 114 H Brachial] Respiratory 18 Rate Blood Pressure 149/78 H 145/84 H Blood Pressure 145/84 H [Right Brachial artery] O2 Saturation 92 01/05/18 01/05/18 01/05/18 15:48 16:41 18:01 Temperature 37.6 C H Heart Rate [ 106 H Brachial] Respiratory 18 Rate Blood Pressure 127/75 149/85 H Blood Pressure 130/77 [Right Brachial artery] O2 Saturation 95 01/05/18 01/05/18 01/06/18 21:53 23:45 00:28 Temperature 36.7 C Heart Rate [ 108 H Brachial] Respiratory 16 Rate Blood Pressure 147/95 H 166/94 H Blood Pressure 146/78 H [Right Brachial artery] O2 Saturation 96 01/06/18 01/06/18 01/06/18 00:30 00:35 00:40 Temperature Heart Rate [ 98 84 97 Brachial] Respiratory 16 16 16 Rate Blood Pressure Blood Pressure 136/76 H 134/64 H 131/68 H [Right Brachial artery] O2 Saturation 01/06/18 01/06/18 01/06/18 01:53 01:58 03:58 Temperature Heart Rate [ 97 Brachial] Respiratory 16 16 Rate Blood Pressure 153/76 H Blood Pressure 141/71 H 137/73 H [Right Brachial artery] O2 Saturation 01/06/18 01/06/18 01/06/18 04:03 04:10 04:15 Temperature Heart Rate [ 105 H 104 H Brachial] Respiratory Rate Blood Pressure Blood Pressure 141/76 H 147/72 H 139/61 H [Right Brachial artery] O2 Saturation 01/06/18 01/06/18 01/06/18 04:20 04:25 04:35 Temperature Heart Rate [ Brachial] Respiratory Rate Blood Pressure Blood Pressure 146/85 H 134/72 H 145/84 H [Right Brachial artery] O2 Saturation 01/06/18 01/06/18 01/06/18 05:58 06:03 06:08 Temperature Heart Rate [ 107 H 75 Brachial] Respiratory Rate Blood Pressure 163/79 H Blood Pressure 155/80 H 139/70 H [Right Brachial artery] O2 Saturation 01/06/18 01/06/18 01/06/18 06:13 06:30 06:45 Temperature Heart Rate [ 77 92 89 Brachial] Respiratory Rate Blood Pressure Blood Pressure 143/72 H 146/77 H 157/93 H [Right Brachial artery] O2 Saturation 01/06/18 07:43 Temperature 36.8 C Heart Rate [ 102 H Brachial] Respiratory 18 Rate Blood Pressure Blood Pressure 144/86 H [Right Brachial artery] O2 Saturation 97 Oxygen O2 Source Room air I&O (Last 24 Hrs): Intake and Output Totals x24h 01/04/18 01/05/18 01/06/18 23:59 23:59 23:59 Intake Total 2389.500 1850.0 1100.0 Output Total 760 Balance 2389.500 1090.0 1100.0 General: Alert, Cooperative, No acute distress HEENT: Atraumatic, PERRLA, Mucous membr. moist/pink Neck: Supple, No JVD Lymphatic: no adenopathy Neuro: Alert, Disoriented, Focal Deficits, Speech Slurred Cardiovascular: Regular rate, Other (tachy, systolic murmur) Respiratory: Chest non-tender, No respiratory distress, Wheezes, Rhonchi Abdomen: Normal bowel sounds, Soft, No tenderness, No hepatospenomegaly, No masses Genitourinary: Normal Inspection Extremities: No clubbing, No cyanosis, No edema, No tenderness/swelling Skin: No rashes, No significant lesion - Results Results: Laboratory Results WBC 6.9 x10^3/uL (4.8-10.8) 01/06/18 06:27 RBC 3.86 10^6/uL (4.70-6.10) L 01/06/18 06:27 Hgb 10.8 g/dL (14.0-18.0) L 01/06/18 06:27 Hct 33.8 % (42.0-52.0) L 01/06/18 06:27 MCV 87.7 fL (80.0-94.0) 01/06/18 06:27 MCH 28.1 pg (27.0-31.0) 01/06/18 06:27 MCHC 32.1 g/dL (32.0-36.0) 01/06/18 06:27 RDW 18.3 % (12.0-15.0) H 01/06/18 06:27 Plt Count 306 10^3/uL (130-450) 01/06/18 06:27 MPV 7.1 fL (7.4-11.4) L 01/06/18 06:27 Neut # 6.6 10^3/uL (1.5-6.6) 01/02/18 18:30 Lymph # 1.0 10^3/uL (1.5-3.5) L 01/02/18 18:30 Lane # 0.5 10^3/uL (0.0-1.0) 01/02/18 18:30 Eos # 0.1 10^3/uL (0.0-0.7) 01/02/18 18:30 Baso # 0.1 10^3/uL (0.0-0.1) 01/02/18 18:30 Absolute Nucleated RBC 0.00 x10^3/uL 01/02/18 18:30 Nucleated RBC % 0.0 /100WBC 01/02/18 18:30 Sodium 135 mmol/L (135-145) 01/06/18 06:27 Potassium 3.6 mmol/L (3.5-5.0) 01/06/18 06:27 Chloride 103 mmol/L (101-111) 01/06/18 06:27 Carbon Dioxide 23 mmol/L (21-32) 01/06/18 06:27 Anion Gap 9.0 (6-13) 01/06/18 06:27 BUN 18 mg/dL (6-20) 01/06/18 06:27 Creatinine 0.6 mg/dL (0.6-1.2) 01/06/18 06:27 Estimated GFR (MDRD) 132 (>89) 01/06/18 06:27 Glucose 105 mg/dL (70-100) H 01/06/18 06:27 Glycated Hemoglobin 6.1 % (4.6-6.2) 01/02/18 18:30 Estim Average Glucose 128 (70-100) H 01/02/18 18:30 Lactic Acid 0.8 mmol/L (0.5-2.2) 01/02/18 19:54 Calcium 8.8 mg/dL (8.5-10.3) 01/06/18 06:27 Magnesium 1.6 mg/dL (1.7-2.8) L 01/06/18 06:27 Total Bilirubin 0.4 mg/dL (0.2-1.0) 01/02/18 18:30 AST 16 IU/L (10-42) 01/02/18 18:30 ALT 13 IU/L (10-60) 01/02/18 18:30 Alkaline Phosphatase 67 IU/L (42-121) 01/02/18 18:30 B-Natriuretic Peptide 133 pg/mL (5-100) H 01/06/18 06:27 Total Protein 7.6 g/dL (6.7-8.2) 01/02/18 18:30 Albumin 3.9 g/dL (3.2-5.5) 01/02/18 18:30 Globulin 3.7 g/dL (2.1-4.2) 01/02/18 18:30 Albumin/Globulin Ratio 1.1 (1.0-2.2) 01/02/18 18:30 Lipase 25 U/L (22-51) 01/02/18 18:30
[2018-01-06] MEDS: ACETAMINOPHEN 1,000 MG/100 ML 100 ML IV PRN (17:24)
[2018-01-06] MEDS: INSULIN ASPART 300 UNIT/3 ML PEN SUBQ SCH ×2 (17:27→21:26)
[2018-01-06] MEDS: BACITRACIN OINT TOP SCH ×2 (20:27→21:06)
[2018-01-06] MEDS: cefTRIAXone 2 GM in SODIUM CHLORIDE 0.9% MINIBAG 100 ML IV SCH (21:26)
[2018-01-07] MEDS: metroNIDAZOLE 500 MG/100 ML 500 MG/100 ML BAG IV SCH ×4 (04:46→21:20)
[2018-01-07] MEDS: SODIUM CHLORIDE FLUSH 0.9% 10 ML SYRINGE IVP PRN ×4 (04:51→19:15)
[2018-01-07] MEDS: hydrALAZINE INJ 20 MG/ML VIAL IVP SCH ×4 (05:17→21:31)
[2018-01-07 06:52] LABS: BASOPHILS % (AUTO) 0.6 %; EOSINOPHILS # (AUTO) 0.1 10^3/uL (0.0-0.7); EOSINOPHILS % (AUTO) 1.8 %; HGB - HEMOGLOBIN 11.8 g/dL (14.0-18.0); LYMPHOCYTES # (AUTO) 0.8 10^3/uL (1.5-3.5); LYMPHOCYTES % (AUTO) 11.1 %; MEAN CORPUSCULAR HEMOGLOBIN 28.4 pg (27.0-31.0); MEAN CORPUSCULAR HGB CONC 32.3 g/dL (32.0-36.0); MEAN PLATELET VOLUME 7.4 fL (7.4-11.4); MONOCYTES # (AUTO) 0.5 10^3/uL (0.0-1.0); MONOCYTES % (AUTO) 7.5 %; NEUTROPHILS # (AUTO) 5.4 10^3/uL (1.5-6.6); PLT - PLATELET COUNT 323 10^3/uL (130-450); RED BLOOD COUNT 4.14 10^6/uL (4.70-6.10); RED CELL DISTRIBUTION WIDTH 17.7 % (12.0-15.0); WHITE BLOOD COUNT 6.9 x10^3/uL (4.8-10.8)
[2018-01-07] MEDS: METOPROLOL 5 MG/5 ML VIAL IVP SCH ×4 (06:55→19:15)
[2018-01-07] MEDS: PANTOPRAZOLE 40 MG VIAL IVP SCH (06:55)
[2018-01-07 07:05] LABS: ALBUMIN 3.5 g/dL (3.2-5.5); BILIRUBIN,TOTAL 0.3 mg/dL (0.2-1.0); CALCIUM 8.6 mg/dL (8.5-10.3); CREATININE 0.6 mg/dL (0.6-1.2); MAGNESIUM 1.8 mg/dL (1.7-2.8); TOTAL PROTEIN 6.9 g/dL (6.7-8.2)
[2018-01-07] MEDS: INSULIN ASPART 300 UNIT/3 ML PEN SUBQ SCH ×4 (07:39→21:33)
[2018-01-07] MEDS: BISACODYL 10 MG SUPP PR SCH (07:39)
[2018-01-07] MEDS: SALINE ENEMA 133 ML BOTTLE RC SCH (07:40)
[2018-01-07] MEDS: POTASSIUM CHLORIDE 20 MEQ/15 ML UDC PO SCH (07:53)
[2018-01-07] MEDS: MAGNESIUM OXIDE 400 MG TABLET PO SCH (08:06)
[2018-01-07] MEDS: BACITRACIN OINT TOP SCH ×2 (08:06→21:25)
[2018-01-07] MEDS: CITALOPRAM 10 MG TABLET PO SCH (08:06)
[2018-01-07] MEDS: NS W/20 MEQ KCL 1,000 ML IV SCH ×2 (08:07→20:41)
[2018-01-07] MEDS: SODIUM CHLORIDE FLUSH 0.9% 10 ML SYRINGE IVP SCH ×3 (08:07→16:49)
[2018-01-07] MEDS: NYSTATIN POWDER 15 GM TOP SCH ×2 (08:17→21:35)
[2018-01-07] MEDS: ACETAMINOPHEN 1,000 MG/100 ML 100 ML IV PRN (10:58)
--- NOTE | 2018-01-07 19:06 | PROVIDER PROGRESS NOTE ---
Assessment/Plan - Problem List (1) Aspiration pneumonia Qualifiers: Aspiration pneumonia type: due to regurgitated food Laterality: left Lung location: lower lobe of lung Qualified Code(s): J69.0 - Pneumonitis due to inhalation of food and vomit Assessment/Plan: The patient has a known history of progressive advanced dementia and has been steadily declining physically that has now affected his ability to swallow. He had a witnessed aspiration event after taking "rolaids" just before admission. Daily chest x-rays that were ordered upon admission, then discontinued were slightly improved. The patient underwent a barium swallow study and speech therapy recommends close observation with thick liquid/ground foods. Due to the patient's inability to follow commands, this may prove to be a difficult task. The patient was given IV antibiotics that will transitioned to PO upon discharge. Plan: Continue oral cares, encourage thickened PO intake and provide a 1:1 feeder with meals, and continue IV antibiotics. (2) S/P CABG (coronary artery bypass graft) Assessment/Plan: The patient is post op since 2017 for a 4-vessel CABG with no known complications since surgery with the exception of progressive dementia. The patient is known to be prescribed a low dose ASA at home. Plan: Continue to monitor and treat pneumonia with IV antibiotics. (3) Type 2 diabetes mellitus Qualifiers: Diabetes mellitus terminal operator insulin use: unspecified group home insulin use status Diabetes mellitus complication status: with unspecified complications Qualified Code(s): E11.8 - Type 2 diabetes mellitus with unspecified complications Assessment/Plan: The patient is a known diabetic and takes metformin at home, although current home list does not reflect this. A hemoglobin A1C was 6.1% and early AM sugar was 125. Plan: Continue to hold metformin and perform [facility] blood sugar checks, SSI. (4) Anxiety and depression Assessment/Plan: The patient has a known history of this, but the dementia likely hides previous noted symptoms. He is prescribed Seroquel at home that was on hold due to recent/current aspiration, but now resumed due to improved swallowing. Plan: Continue to monitor for worsening symptoms and continue Seroquel. (5) Hypertension Qualifiers: Hypertension type: essential hypertension Qualified Code(s): I10 - Essential (primary) hypertension Assessment/Plan: The patient has a long standing history of this and he had a blood pressure of 162/85. At home he is prescribed metoprolol and losartan, but since he has been NPO. Due to ongoing uncontrolled hr and b/p, IV hydralazine and IV metoprolol have been prescribed. Plan: Continue to monitor vital signs and give meds IV for now. (6) Urinary retention Assessment/Plan: The patient has been having elevated values for his bladder scan and has to be prompted to urinate. The patient continues to show residual urine today. Plan: Consider flomax upon discharge. - Current Meds Current Meds: Current Medications Generic Name Dose Route Start Last Admin Trade Name Freq PRN Reason Stop Dose Admin Bacitracin 1 packet 01/06/18 18:00 01/07/18 08:06 Bacitracin TOP Not Given BID BEN Bisacodyl 10 mg 01/04/18 17:00 01/07/18 07:39 Dulcolax Supp [place] Not Given DAILY BEN Citalopram Hydrobromide 10 mg 01/03/18 09:00 01/07/18 08:06 Celexa PO 10 mg DAILY BEN Administration Hydralazine HCl 10 mg 01/04/18 16:00 01/07/18 17:02 Apresoline Inj IVP 10 mg Q6H BEN Administration Ceftriaxone Sodium 2 gm/ 100 mls @ 200 mls/hr 01/03/18 20:00 01/06/18 22:38 Sodium Chloride IV Infused DAILY@2000 BEN Infusion Metronidazole 500 mg in 100 mls @ 100 mls/hr 01/03/18 02:00 01/07/18 16:56 Flagyl 500 Mg/100 Ml IV Infused Q6H BEN Infusion Potassium Chloride/Sodium Chloride 1,000 mls @ 75 mls/hr 01/04/18 13:38 01/07 08:54 Normal Saline 0.9% W/20 Meq Kcl IV 75 mls/hr .[id number] BEN Infusion Acetaminophen 100 mls @ 400 mls/hr 01/05/18 19:08 01/07/18 11:13 Ofirmev IV Infused Q6HR PRN Infusion PAIN Insulin Aspart 1 - 5 unit 01/06/18 17:00 01/07/18 16:48 Novolog SUBQ Not Given 0800,1200,1700,2100 BEN Protocol Lidocaine HCl 2.5 ml 01/05/18 18:39 01/05/18 22:31 Xylocaine Uro-Jet 2% UR 2.5 ml Q2H PRN Administration PAIN Magnesium Oxide 400 mg 01/06/18 08:00 01/07/18 08:06 Mag Ox PO 400 mg DAILYWM BEN Administration Metoprolol Tartrate 5 mg 01/04/18 13:00 01/07/18 11:56 Lopressor Inj IVP 5 mg Q6HR BEN Administration Mineral Oil 1 applic 01/04/18 20:57 01/05/18 05:11 Cavilon TOP 1 unit PRN PRN Administration Skin Care Nystatin 1 applic 01/04/18 09:00 01/07/18 08:17 Nystop TOP 1 applic BID BEN Administration Pantoprazole Sodium 40 mg 01/04/18 13:00 01/07/18 06:55 Protonix IVP 40 mg QDAC BEN Administration Potassium Chloride 20 meq 01/06/18 08:00 01/07/18 07:53 PO 20 meq DAILYWM BEN Administration Sodium Biphosphate/Sodium Phosphate 133 ml 01/05/18 09:00 01/07/18 07:40 Fleets Saline Enema RC Not Given DAILY BEN Sodium Chloride 10 ml 01/02/18 21:02 01/07/18 06:55 Normal Saline Flush 0.9% IVP 10 ml PRN PRN Administration NEEDED PER PROVIDER ORDERS Sodium Chloride 10 ml 01/03/18 01:00 01/07/18 16:49 Normal Saline Flush 0.9% IVP Not Given 0100,0900,1700 BEN - Lab Result Lab results reviewed: Yes Fish Bone Diagrams: 01/08/18 05:21 01/08/18 05:21 - EKG Results EKG Interpreted Independently: Yes EKG Comparison: Unchanged from prior EKG - Diagnostic Imaging Results Diagnostic Imaging Results: Final report reviewed - Additional Planning Condition/Complexity: Stable My Orders: My Active Orders 01/08/18 05:00 CBC - COMP BLD CT W/AUTO DIFF [HEME] DAILYLAB CMP [COMPREHENSIVE METABOLIC PANEL] [CHEM] DAILYLAB 01/09/18 05:00 CBC - COMP BLD CT W/AUTO DIFF [HEME] DAILYLAB CMP [COMPREHENSIVE METABOLIC PANEL] [CHEM] DAILYLAB Plan Discussed with:: Patient, Family Time Spent: 31-60 minutes Subjective - Subjective Patient Reports: No Complaints Nursing Reports: No Complaints Objective Vital Signs: Vital Signs - 24 hr 01/06/18 01/07/1818 21:27 00:00 05:17 Temperature 36.2 C L Heart Rate [ 102 H Brachial] Respiratory 18 Rate Blood Pressure 146/73 H 143/85 H 164/79 H Blood Pressure [Left Brachial artery] Blood Pressure 143/85 H [Right Brachial artery] O2 Saturation 96 01/07/18 01/07/18 01/07/18 06:00 06:55 07:17 Temperature 36.5 C Heart Rate [ 106 H 73 Brachial] Respiratory 16 Rate Blood Pressure 164/79 H Blood Pressure 164/80 H [Left Brachial artery] Blood Pressure 156/84 H [Right Brachial artery] O2 Saturation 97 01/07/18 01/07/18 01/07/18 10:50 10:59 11:16 Temperature Heart Rate [ 99 100 98 Brachial] Respiratory Rate Blood Pressure Blood Pressure 147/87 H 157/85 H 139/75 H [Left Brachial artery] Blood Pressure [Right Brachial artery] O2 Saturation 01/07/18 15:56 Temperature 36.5 C Heart Rate [ 96 Brachial] Respiratory 18 Rate Blood Pressure Blood Pressure 157/85 H [Left Brachial artery] Blood Pressure [Right Brachial artery] O2 Saturation 99 Oxygen O2 Source Room air I&O (Last 24 Hrs): Intake and Output Totals x24h 01/05/18 01/06/18 01/07/18 23:59 23:59 23:59 Intake Total 1850.0 2850.0 1176.25 Output Total 760 Balance 1090.0 2850.0 1176.25 General: Alert, Cooperative, No acute distress HEENT: Atraumatic, PERRLA Neck: Supple, No JVD Lymphatic: no adenopathy Neuro: Disoriented, Focal Deficits, Speech Slurred Cardiovascular: Regular rate, Normal S1, Normal S2 Respiratory: Chest non-tender, Wheezes (scattered crackles.) Abdomen: Normal bowel sounds, No tenderness, No masses Genitourinary: Normal Inspection Extremities: No clubbing, No tenderness/swelling, Other (BLE edema-chronic) Skin: No rashes, No breakdown, No significant lesion Comments/Notes: chronic rosacia, so facial erythema. - Results Results: Laboratory Results WBC 6.9 x10^3/uL (4.8-10.8) 01/07/18 06:26 RBC 4.14 10^6/uL (4.70-6.10) L 01/07/18 06:26 Hgb 11.8 g/dL (14.0-18.0) L 01/07/18 06:26 Hct 36.5 % (42.0-52.0) L 01/07/18 06:26 MCV 88.0 fL (80.0-94.0) 01/07/18 06:26 MCH 28.4 pg (27.0-31.0) 01/07/18 06:26 MCHC 32.3 g/dL (32.0-36.0) 01/07/18 06:26 RDW 17.7 % (12.0-15.0) H 01/07/18 06:26 Plt Count 323 10^3/uL (130-450) 01/07/18 06:26 MPV 7.4 fL (7.4-11.4) 01/07/18 06:26 Neut # 5.4 10^3/uL (1.5-6.6) 01/07/18 06:26 Lymph # 0.8 10^3/uL (1.5-3.5) L 01/07/18 06:26 Bell # 0.5 10^3/uL (0.0-1.0) 01/07/18 06:26 Eos # 0.1 10^3/uL (0.0-0.7) 01/07/18 06:26 Baso # 0.0 10^3/uL (0.0-0.1) 01/07/18 06:26 Absolute Nucleated RBC 0.00 x10^3/uL 01/07/18 06:26 Nucleated RBC % 0.0 /100WBC 01/07/18 06:26 Sodium 133 mmol/L (135-145) L 01/07/18 06:26 Potassium 3.5 mmol/L (3.5-5.0) 01/07/18 06:26 Chloride 101 mmol/L (101-111) 01/07/18 06:26 Carbon Dioxide 22 mmol/L (21-32) 01/07/18 06:26 Anion Gap 10.0 (6-13) 01/07/18 06:26 BUN 13 mg/dL (6-20) 01/07/18 06:26 Creatinine 0.6 mg/dL (0.6-1.2) 01/07/18 06:26 Estimated GFR (MDRD) 132 (>89) 01/07/18 06:26 Glucose 126 mg/dL (70-100) H 01/07/18 06:26 Glycated Hemoglobin 6.1 % (4.6-6.2) 01/02/18 18:30 Estim Average Glucose 128 (70-100) H 01/02/18 18:30 Lactic Acid 0.8 mmol/L (0.5-2.2) 01/02/18 19:54 Calcium 8.6 mg/dL (8.5-10.3) 01/07/18 06:26 Magnesium 1.8 mg/dL (1.7-2.8) 01/07/18 06:26 Total Bilirubin 0.3 mg/dL (0.2-1.0) 01/07/18 06:26 AST 11 IU/L (10-42) 01/07/18 06:26 ALT 10 IU/L (10-60) 01/07/18 06:26 Alkaline Phosphatase 53 IU/L (42-121) 01/07/18 06:26 B-Natriuretic Peptide 126 pg/mL (5-100) H 01/07/18 06:26 Total Protein 6.9 g/dL (6.7-8.2) 01/07/18 06:26 Albumin 3.5 g/dL (3.2-5.5) 01/07/18 06:26 Globulin 3.4 g/dL (2.1-4.2) 01/07/18 06:26 Albumin/Globulin Ratio 1.0 (1.0-2.2) 01/07/18 06:26 Lipase 25 U/L (22-51) 01/02/18 18:30 ABX Reporting Has patient been on IV antibiotics over the past 48 hours?: Yes
[2018-01-07] MEDS: cefTRIAXone 2 GM in SODIUM CHLORIDE 0.9% MINIBAG 100 ML IV SCH (20:35)
[2018-01-08] MEDS: METOPROLOL 5 MG/5 ML VIAL IVP SCH ×2 (00:29→06:49)
[2018-01-08] MEDS: SODIUM CHLORIDE FLUSH 0.9% 10 ML SYRINGE IVP SCH ×2 (00:30→08:14)
[2018-01-08] MEDS: metroNIDAZOLE 500 MG/100 ML 500 MG/100 ML BAG IV SCH ×3 (02:10→14:11)
[2018-01-08] MEDS: hydrALAZINE INJ 20 MG/ML VIAL IVP SCH ×2 (04:19→10:47)
[2018-01-08] MEDS: SODIUM CHLORIDE FLUSH 0.9% 10 ML SYRINGE IVP PRN ×2 (04:40→06:50)
[2018-01-08 05:48] LABS: BASOPHILS # (AUTO) 0.1 10^3/uL (0.0-0.1); BASOPHILS % (AUTO) 0.9 %; EOSINOPHILS # (AUTO) 0.1 10^3/uL (0.0-0.7); EOSINOPHILS % (AUTO) 1.3 %; HGB - HEMOGLOBIN 11.5 g/dL (14.0-18.0); LYMPHOCYTES % (AUTO) 12.3 %; MEAN CORPUSCULAR HEMOGLOBIN 28.7 pg (27.0-31.0); MEAN CORPUSCULAR HGB CONC 32.7 g/dL (32.0-36.0); MEAN CORPUSCULAR VOLUME 87.8 fL (80.0-94.0); MEAN PLATELET VOLUME 7.5 fL (7.4-11.4); MONOCYTES # (AUTO) 0.6 10^3/uL (0.0-1.0); MONOCYTES % (AUTO) 7.6 %; NEUTROPHILS # (AUTO) 6.2 10^3/uL (1.5-6.6); NEUTROPHILS % (AUTO) 77.9 %; PLT - PLATELET COUNT 366 10^3/uL (130-450); RED BLOOD COUNT 4.01 10^6/uL (4.70-6.10); RED CELL DISTRIBUTION WIDTH 18.3 % (12.0-15.0)
[2018-01-08 06:00] LABS: ALBUMIN 3.4 g/dL (3.2-5.5); ALBUMIN/GLOBULIN RATIO 1.1 (1.0-2.2); ALKALINE PHOSPHATASE 49 IU/L (42-121); ALT ALANINE AMINOTRANSFERASE < 10 IU/L (10-60); AST ASPARTATE AMINOTRANSFERASE 14 IU/L (10-42); BILIRUBIN,TOTAL 0.5 mg/dL (0.2-1.0); BUN - BLOOD UREA NITROGEN 11 mg/dL (6-20); CALCIUM 8.5 mg/dL (8.5-10.3); CARBON DIOXIDE - CO2 23 mmol/L (21-32); CHLORIDE 105 mmol/L (101-111); CREATININE 0.6 mg/dL (0.6-1.2); GFR - MDRD 132 (>89); GLUCOSE 136 mg/dL (70-100); SODIUM 134 mmol/L (135-145); TOTAL PROTEIN 6.6 g/dL (6.7-8.2)
[2018-01-08] MEDS: PANTOPRAZOLE 40 MG VIAL IVP SCH (06:50)
[2018-01-08] MEDS: BISACODYL 10 MG SUPP PR SCH (07:56)
[2018-01-08] MEDS: INSULIN ASPART 300 UNIT/3 ML PEN SUBQ SCH ×2 (07:56→11:51)
[2018-01-08] MEDS: BACITRACIN OINT TOP SCH (07:56)
[2018-01-08] MEDS: SALINE ENEMA 133 ML BOTTLE RC SCH (07:56)
[2018-01-08] MEDS: MAGNESIUM OXIDE 400 MG TABLET PO SCH (08:11)
[2018-01-08] MEDS: CITALOPRAM 10 MG TABLET PO SCH (08:11)
[2018-01-08] MEDS: POTASSIUM CHLORIDE 20 MEQ/15 ML UDC PO SCH (08:13)
[2018-01-08] MEDS: NYSTATIN POWDER 15 GM TOP SCH (08:14)
--- NOTE | 2018-01-08 11:42 | Discharge Plan ---
"Discharge Plan for SNF / ADAN - DC Plan and Transition Orders Disposition: 03 SNF DC/Xfer Condition: Good SNF Transition Orders: Admit to: Care Age under the care of Dr. Lopez Discharge Diagnosis: Aspiration PNA, advanced dementia, normal pressure hydrocephalus, 4 vessel CABG in 09/2017, CAD, HTN, anxiety disorder, and DM type 2. Medicare Certification: I certify that [facility] care is medically necessary on a continuing basis for any of the conditions for which she/he is receiving care during hospitalization. Notify PCP of admission and forward orders to primary provider for signature. Weight on admission and monthly. Call PCP immediately if weight increases by 10 pounds or if patient develops dyspnea, chest pain/tightness or edema. House Bowel Program: yes If no BM after 2 days, nurse may give M.O.M. 30ml PO PRN and /or ducolax Supp 1 PA and /or PAO 250mg P.O., and/or senna 1-2 tabs PO. On day 3 nurse may give repeat above order until residents constipation is resolved. Immunizations:Annual Influenza Vaccine: yes. (between May 12 and December 09. ) Unless allergy or already given Two-Step PPD: yes; per [facility] [phone] or appropriate documentation of approved exceptions Treatments & Other Orders: Complete full course of oral antibiotics, 1:1 feeding as he remains a high aspiration risk and needs continuous verbal cues while swallowing. Limited physical therapy due to bed bound status, OT, and speech as per facility. Oxygen Orders: Lab Tests or X-Rays Orders: Not indicated, PRN to keep oxygen greater than 90%. Medications: PLEASE REFER TO THE DISCHARGE MEDICATION LIST. Insulin Orders? No, resume Metformin daily 500mg PO. Diagnosis: Diabetes; Initiate hypo and hyperglycemia protocols for BG <70 and BG >375. May check BG prn for signs/symptoms of dysglycemia. Allergies and Adverse Reactions: Allergies Allergy/AdvReac Type Severity Reaction Status Date / Time Penicillins AdvReac Unknown Verified 12/01/17 18:57 - Medications New Prescriptions: Clindamycin HCl [Clindamycin 150MG CAP] 450 mg PO TID 10 Days #90 capsule metFORMIN [Glucophage] 500 mg PO DAILY #30 tablet Saccharomyces Boulardii [Florastor] 250 mg PO BID 20 Days #40 capsule Tamsulosin [Flomax] 0.4 mg PO DAILY #30 capsule - Diet Type: Geriatric Texture: Dysphagia [facility] Liquids: [place] thick May have monthly special meal: Yes - Therapies | Activity Therapy: Evaluation | Treat if indicated: Speech, PT, OT Rehabilitation Potential: Maximize functional status, Maintain present ADL Functional Activity: Activity as Tolerated Weight Bearing: Other (bedbound)"
[2018-01-08 15:58] VITALS: BP 170/100
--- NOTE | 2018-01-08 16:02 | DISCHARGE SUMMARY ---
Discharge Summary Admit Date: 01/02/18 Discharge Date: 01/08/18 Discharging Provider: MESFIN Suarez Primary Care Provider: Fanny Wilson Code Status: Do Not Attempt Resuscitation Condition at Discharge: Good Discharge Disposition: 03 SNF DC/Xfer Discharge Facility Name: [facility] Age of [age] - DIAGNOSES Admission Diagnoses: Pneumonitis due to inhalation of food and vomit (J69.0) Presence of aortocoronary bypass graft (Z95.1) Type 2 diabetes mellitus without complications (E11.9) Hyperlipidemia, unspecified (E78.5) Essential (primary) hypertension (I10) Anxiety disorder, unspecified (F41.9) Discharge Diagnoses with Status of Each Condition: Aspiration pneumonia (J69.0)- new on this admit, treatment to continue. S/P CABG x 4 (Z95.1)- chronic, stable. Type 2 diabetes mellitus (E11.9)- chronic, stable. Hypertension (I10)- chronic, stable. Anxiety and depression (F41.9)- chronic, stable. Advanced dementia (F03.90)- worsening, care to continue at long term care phlebotom[facility] [place]. - HPI History of Present Illness: Mr. Alejandro Newton is a very pleasant 72-year-old gentleman who has a history of normal pressure hydrocephalus and dementia. He has had an eventful past 6 months which includes a 4 vessel coronary artery bypass and aortic valve replacement in September 2017. Following this the patient had an anesthesia reaction and became very agitated and his dementia was exacerbated. This was eventually controlled and the patient was returned home. A few weeks later the patient had a full workup for DVT which was essentially negative and then about a month ago the patient underwent went further testing for a TIA. Patient stopped standing around that time it was unclear if this was related to the normal pressure hydrocephalus. He was sent over to [facility] for possible shunting and was diagnosed with dementia at that time. Earlier this evening Mr. Newton had some reflux and choked on the antacid. When his coughing did not stop and his breathing became labored, his brought him to the emergency department where he was found to have a large left lower lobe pneumonia suggestive of aspiration. - HOSPITAL COURSE Hospital Course: The following diagnoses were prevalent during this hospital stay: (1) Aspiration pneumonia The patient has a known history of progressive advanced dementia and has been steadily declining physically that has now affected his ability to swallow. He had a witnessed aspiration event after taking "rolaids" just before admission. Daily chest x-rays that were ordered upon admission, then discontinued were slightly improved. The patient underwent a barium swallow study and speech therapy recommends close observation with thick liquid/ground foods. Due to the patient's inability to follow commands, this may prove to be a difficult task. The patient was given IV Rochephin and Flagyl that was transitioned to oral Clindamycin upon discharge. He was provided routine oral cares, encouraged thickened PO intake and provided a 1:1 feeder with meals. (2) S/P CABG (coronary artery bypass graft) The patient is post op since 2017 for a 4-vessel CABG with no known complications since surgery with the exception of progressive dementia. The patient is known to be prescribed a low dose ASA at home. (3) Type 2 diabetes mellitus (non-insulin dependent) The patient is a known diabetic and takes metformin at home, although current home list does not reflect this. A hemoglobin A1C was 6.1% and early AM sugars were well controlled. Metformin was resumed upon discharge. (4) Anxiety and depression The patient has a known history of this, but the dementia likely hides previous noted symptoms. He is prescribed Seroquel at home that was on hold due to recent/current aspiration, but now resumed due to improved swallowing. The patient was continuously monitored for worsening symptoms and Seroquel was continued. (5) Hypertension The patient has a long standing history of this and he had a blood pressure of 162/85. At home he is prescribed metoprolol and losartan, but since he has been NPO. Due to ongoing uncontrolled heart rates and elevated blood pressures , the patient was prescribed IV hydralazine and IV metoprolol, which were transitioned to his usual home medications as his swallowing improved. (6) Urinary retention The patient has been having elevated values for his bladder scan and has to be prompted to urinate. Flomax was prescribed upon discharge. Disposition: The patient was transferred to [facility] under the care of Fanny Wilson. He is in stable condition and much improved from his aspiration pneumonia. His IV antibiotics have been changed to oral and his Metformin is resumed. He is considered bed-bound, and is seen by palliative care. He will be at [facility] for long-term placement. - ALLERGIES Allergies/Adverse Reactions: Allergies Allergy/AdvReac Type Severity Reaction Status Date / Time Penicillins AdvReac Unknown Verified 12/01/17 18:57 - MEDICATIONS Home Medications: Ambulatory Orders Medication Instructions Recorded Confirmed Aspirin [Aspirin EC] 81 mg PO DAILY 08/12/17 01/10/18 Atorvastatin Calcium 40 mg PO QDDINNER 12/02/17 01/10/18 Citalopram [CeleXA] 10 mg PO DAILY 12/02/17 01/10/18 Metoprolol Tartrate [Lopressor] 25 mg PO BID 12/02/17 01/10/18 Omeprazole [PriLOSEC] 20 mg PO QDAC 12/02/17 01/10/18 QUEtiapine [SEROquel] 12.5 mg PO QPM 01/03/18 01/10/18 Clindamycin HCl [Clindamycin 150MG 450 mg PO TID 10 Days #90 capsule 01/08/18 CAP] Saccharomyces Boulardii [Florastor] 250 mg PO BID 20 Days #40 capsule 01/08/18 01/10/18 Tamsulosin [Flomax] 0.4 mg PO DAILY #30 capsule 01/08/18 01/10/18 ALPRAZolam [Alprazolam] 0.25 - 0.5 mg PO TID PRN 01/10/18 01/10/18 buPROPion HCl [Bupropion HCl] 150 mg PO BID 01/10/18 01/10/18 metFORMIN [Glucophage] 1,000 mg PO BID 01/10/18 01/10/18 - PHYSICAL EXAM AT DISCHARGE General Appearance: positive: No acute distress, Alert, Other (sleepy at times.) Eyes Bilateral: positive: Normal inspection, PERRL ENT: positive: ENT inspection nml, Pharynx nml, Pharyngeal erythema, Dry mucous membranes, Other (hyperextended neck) Neck: positive: Nml inspection, Thyroid nml, No JVD, Trachea midline Respiratory: positive: Chest non-tender, Wheezes, Other (scattered crackles bilaterally.) Cardiovascular: positive: Irregularly irregular, Systolic murmur, Decreased pulse(s) Peripheral Pulses: positive: 1+ Abdomen: positive: Non-tender, No organomegaly, Nml bowel sounds Back: positive: Nml inspection Skin: positive: No rash, Warm, Dry Extremities: positive: Non-tender, Pedal edema, Joint swelling Neurologic/Psychiatric: positive: Disoriented to place, Disoriented to time, Weakness, Sensory loss, Slurred/abnml speech, Depressed mood/affect, Other ( advanced dementia) Reflexes: Bicep (R): 1+, Bicep (L): 1+ - LABS Result Diagrams: 01/08/18 05:21 01/08/18 05:21 - DIAGNOSTIC IMAGING Diagnostic Imaging Results: Final report reviewed Diagnostic Imaging Results Comments: EXAM: CHEST RADIOGRAPHY EXAM DATE: 01/02/2018 06:29 PM. CLINICAL HISTORY: Aspiration. COMPARISON: 08/12/2017. TECHNIQUE: 1 view. FINDINGS: Lungs/Pleura: There is an opacity at the left lung base with blunting of left costophrenic angle. The right lung appears clear. There is no pneumothorax. Mediastinum: There are findings of median sternotomy. There is mild/moderate aortic arch atherosclerotic calcification. Other: None. IMPRESSION: 1. New left lung opacity consistent with pneumonia, atelectasis, small to moderate pleural effusion, or aspiration. EXAM: CT CHEST EXAM DATE: 01/02/2018 07:39 PM. CLINICAL HISTORY: Pneumonia. 3 days of respiratory distress. Patient choked on Tums today, possible aspiration of such. COMPARISONS: None. TECHNIQUE: Routine helical CT imaging was performed through the chest. IV contrast: None. Reconstructions: Coronal and sagittal. In accordance with CT protocol optimization, one or more of the following dose reduction techniques were utilized for this exam: automated exposure control, adjustment of mA and/or KV based on patient size, or use of iterative reconstructive technique. FINDINGS: Lungs/Pleura: Tiny right and moderate left pleural effusions. Normal lung volumes. No endobronchial debris. Subsegmental atelectasis or consolidation involving the lateral segment left upper lobe, lingula, and basilar segments left lower lobe. No pneumothorax. No cavitating lesion. Mediastinum: Mild cardiomegaly. Tiny pericardial effusion. Remote sternotomy and aortic valve placement. No significant adenopathy. Bones: Several old left rib fractures. Visualized Abdomen: Unremarkable. Other: None. IMPRESSION: 1. No evidence of endobronchial debris nor foreign body. 2. Tiny right and moderate left pleural effusions. 3. Peripheral subsegmental consolidation/atelectasis involving the left lung. Further attention with follow-up chest x-rays recommended to confirm resolution following treatment. If these do not resolve, repeat noncontrast chest CT should be considered to exclude underlying mass lesions. 4. Mild cardiomegaly. Tiny pericardial effusion. FRONTAL CHEST: 01/03/2018. CLINICAL INDICATION: Aspiration pneumonia. COMPARISON: 01/02/2018. FINDINGS: Frontal view of the chest demonstrates stable changes of cardiac surgery. Left effusion and basilar airspace disease is unchanged. No pneumothorax is seen. IMPRESSION: STABLE LEFT EFFUSION AND BASILAR AIRSPACE DISEASE. STABLE POSTOPERATIVE CHANGES. EXAM: CHEST RADIOGRAPHY EXAM DATE: 01/04/2018 05:32 AM. CLINICAL HISTORY: Aspiration pneumonia. COMPARISON: 01/02/2018. 01/03/2018. TECHNIQUE: 1 view. FINDINGS: Lungs/Pleura: Borderline vascular congestion. Left pleural effusion and dense left basilar opacity are again seen. Patchy right basilar opacity also evident. No pneumothorax. Mediastinum: Heart size and mediastinal contour are stable. Other: Changes are again seen from median sternotomy. IMPRESSION: 1. Left pleural effusion and dense left basilar opacity without significant change. 2. Patchy right basilar consolidation/atelectasis, unchanged. 3. Borderline vascular congestion. EXAM: [id number] FL/MBS ([id number]) MODIFIED BARIUM SWALLOW: 01/05/2018 CLINICAL INDICATION: Coughing fits, evaluate aspiration. FINDINGS: Various consistencies of barium were prepared and administered in conjunction with Speech Pathology. There was no evidence of penetration or aspiration with any administered consistency. Please also refer to full report from Speech Pathology. IMPRESSION: NO EVIDENCE OF PENETRATION OR ASPIRATION. FLUOROSCOPY TIME: 3 minutes 19 seconds; 1 spot image obtained (cinefluoroscopy recorded). - FOLLOW UP Follow Up: Discharged to [facility] for long-term placement. - TIME SPENT Time Spent in Discharge (Minutes): 60
== END 2018-01-08 16:30 | DRG 178 ==
LOC: EDUNIT# → ED 18:13 → ICU 21:02 → MS2 01-04 15:59
PROVIDERS: ADMIT Hospitalist; ATTEND Nurse Practitioner
DX: J69.0 Pneumonitis due to inhalation of food and vomit (principal); R09.02 Hypoxemia; I35.0 Nonrheumatic aortic (valve) stenosis; F03.90 Unspecified dementia, unspecified severity, without behavioral disturbance, psychotic disturbance, mood disturbance, and anxiety; J69.8 Pneumonitis due to inhalation of other solids and liquids; G82.50 Quadriplegia, unspecified; G91.2 (Idiopathic) normal pressure hydrocephalus; F02.81 Dementia in other diseases classified elsewhere, unspecified severity, with behavioral disturbance; E78.00 Pure hypercholesterolemia, unspecified; F05 Delirium due to known physiological condition; R33.9 Retention of urine, unspecified; E78.5 Hyperlipidemia, unspecified; R13.10 Dysphagia, unspecified; I10 Essential (primary) hypertension; F41.9 Anxiety disorder, unspecified; G30.9 Alzheimer's disease, unspecified; E11.42 Type 2 diabetes mellitus with diabetic polyneuropathy; I25.10 Atherosclerotic heart disease of native coronary artery without angina pectoris; F32.9 Major depressive disorder, single episode, unspecified; K59.09 Other constipation; Z66 Do not resuscitate; Z51.5 Encounter for palliative care; Z95.1 Presence of aortocoronary bypass graft; Z95.2 Presence of prosthetic heart valve; Z79.82 Long term (current) use of aspirin; Z79.84 Long term (current) use of oral hypoglycemic drugs; Z79.899 Other long term (current) drug therapy; Z74.01 Bed confinement status; Z86.73 Personal history of transient ischemic attack (TIA), and cerebral infarction without residual deficits
CPT/HCPCS: 36415; 71045; 71250; 74230; 80048; 80053; 83036; 83605; 83690; 83735; 83880; 85025; 87040; 87150; 94640; 96365; 96368; 96375; 99223; 99283; 99284; 99285

== ENCOUNTER 2018-01-08 16:35 | Outpatient (CLI) | payer MEDICARE, MEDICAID | END 2018-01-08 16:36 | LOC: EMS 16:35 | PROVIDERS: ATTEND Surgery | DX: J18.9 Pneumonia, unspecified organism (principal); F03.90 Unspecified dementia, unspecified severity, without behavioral disturbance, psychotic disturbance, mood disturbance, and anxiety; Z74.01 Bed confinement status ==

== ENCOUNTER 2018-01-08 19:30 | Outpatient (CLI) | payer MEDICARE, MEDICAID | END 2018-01-08 19:31 | disposition home or self-care (01) | LOC: EMS 19:30 | PROVIDERS: ATTEND Surgery | DX: F03.90 Unspecified dementia, unspecified severity, without behavioral disturbance, psychotic disturbance, mood disturbance, and anxiety (principal); J18.9 Pneumonia, unspecified organism; Z74.01 Bed confinement status | CPT/HCPCS: A0425; A0428 ==

== ENCOUNTER 2018-01-08 22:37 | Outpatient (CLI) | payer MEDICARE, MEDICAID | END 2018-01-08 22:38 | disposition EMS.NT | LOC: EMS 22:37 | PROVIDERS: ATTEND Surgery | DX: Z03.89 Encounter for observation for other suspected diseases and conditions ruled out (principal); W06.XXXA Fall from bed, initial encounter; Y92.032 Bedroom in apartment as the place of occurrence of the external cause ==

== ENCOUNTER 2018-01-10 15:00 | Outpatient (CLI) | payer MEDICARE, MEDICAID ==
--- NOTE | 2018-01-10 17:29 | CONSULTATION NOTE ---
Palliative Care Follow Up - Referral Referring Provider: Dr. Fanny Castellanos Time of Visit: [id number] Referral setting: Home Referral Reason: Aspiration pneumonia/Dementia with behavioral disturbances/ Goals of care - Information Sources Records reviewed: Previous records reviewed History/Review of Systems obtained from: Family (most of information via ) Exam limitations: Clinical condition (patient pleasant but unable to provide any accurate ROS) - History of Present Illness Update Brief HPI Update: This is unfortunate 72-year-old gentleman who was recently hospitalized from to 01/08/18 for aspiration pneumonia, history of normal pressure hydrocephalus , and progressive dementia. His neuro/cognitive status worsened after his CABG in September 2017, he had had a significant reaction to anesthesia. He also recently presented on 12/01 with symptoms of left hemiplegia, with some resolution, but has continued to have functional and cognitive changes. After this last hospitalization prior to [facility], he had essentially become bedbound, with lower extremity weakness of unknown etiology, and during his last hospitalization here [facility] presents with severe dysphagia has come home on swallow precautions. On discharge from [facility], the patient was to go to alf facility, he did not qualify for Medicare admit so was going under long-term care benefit. Unfortunately when they got there, the did not find it in the acceptable environment for the patient, and he was returned home. They live in a mobile trailer, have a hospital bed set up in the living room, his daughter Jaimee is the [employer] worker. That very evening he had fallen out of bed, with needing paramedics to put him back in. Palliative care to provide support, given the patient is homebound, they are to reinitiate [facility]. Patient without any respiratory distress , his breath sounds are clear, he has no cough at time of visit. providing diet with appropirate precautions, and ensure. Patient with some anorexia, and difficulty with food choices. He also presents with some right shoulder pain which is new since hospitalization, he does have limited range of motion in his right shoulder, some discomfort with manipulation, is concerned it is related to an injury sustained when repositioned during stay. Patient is oriented to person only, reports he is somewhat clear, and more able to sustain conversation in the morning. She still does "see Alejandro for whom he was" during these times. He becomes more agitated, rolling of the sheets, perseverative, and physically active in the bed later in the day, does describe symptoms of sundowning. Social History - Living Situation Living arrangement: At home Living Situation: With spouse/s.o., With family (daughter Jaimee [employer] worker ; does take 2 persons to reposition in bed.) Medications/Allergies - Medications Home Medications: Ambulatory Orders Medication Instructions Recorded Confirmed Aspirin [Aspirin EC] 81 mg PO DAILY 08/12/17 01/10/18 Atorvastatin Calcium 40 mg PO QDDINNER 12/02/17 01/10/18 Citalopram [CeleXA] 10 mg PO DAILY 12/02/17 01/10/18 Metoprolol Tartrate [Lopressor] 25 mg PO BID 12/02/17 01/10/18 Omeprazole [PriLOSEC] 20 mg PO QDAC 12/02/17 01/10/18 QUEtiapine [SEROquel] 12.5 mg PO QPM 01/03/18 01/10/18 Clindamycin HCl [Clindamycin 150MG 450 mg PO TID 10 Days #90 capsule 01/08/18 CAP] Saccharomyces Boulardii [Florastor] 250 mg PO BID 20 Days #40 capsule 01/08/18 01/10/18 Tamsulosin [Flomax] 0.4 mg PO DAILY #30 capsule 01/08/18 01/10/18 ALPRAZolam [Alprazolam] 0.25 - 0.5 mg PO TID PRN 01/10/18 01/10/18 buPROPion HCl [Bupropion HCl] 150 mg PO BID 01/10/18 01/10/18 metFORMIN [Glucophage] 1,000 mg PO BID 01/10/18 01/10/18 - Allergies Allergies/Adverse Reactions: Allergies Allergy/AdvReac Type Severity Reaction Status Date / Time Penicillins AdvReac Unknown Verified 12/01/17 18:57 Review of Systems - Constitutional Constitutional: reports: Fatigue, Weakness, Poor appetite, Weight loss. denies : Fever, Chills - Ears, Nose & Throat Ears, Nose & Throat: reports: Other (patient needing feeding now; supervised and slow with cueing for safety) - Respiratory Respiratory: denies: Cough - Gastrointestinal Gastrointestinal: reports: Change in bowel habits (bowels currently loose; no watery), Reflux/heartburn (per patient), Poor appetite - Genitourinary Genitourinary: reports: Incontinence (reports "flowing" since home; newly on Flomax; no s/s of infection) - Musculoskeletal Musculoskeletal: reports: Joint pain (right shoulder new since this hospitalization) - Integumentary Integumentary: reports: Dryness - Neurological Neurological: reports: General weakness, Memory problems - Psychiatric Psychiatric: reports: Anxiety (reports prior to cognitive decline very anxious person at baseline), Delusions, Behavior disturbances - Endocrine Endocrine: reports: Diabetes type 2 (BS last night 200; this am 149; needing to crush meds) - Hematologic/Lymphatic Hematologic/Lymphatic: reports: Anemia (01/08 11.5 hgb), Recurrent infections ( treating aspiration pneumonia) - Other Findings Other Findings: limited ROS by patient's dementia Physical Exam - Vital Signs Temperature: 96.5 C Pulse Rate: 105 Respiratory Rate: 16 O2 Saturation: 93 (ra @ rest) Blood Pressure: 122/82 - Physical Exam General Appearance: positive: No acute distress Eyes Bilateral: positive: Normal inspection ENT: positive: Pharynx nml Neck: positive: No JVD, Trachea midline Cardiovascular: positive: Regular rate & rhythm, Tachycardia Respiratory: positive: Diminished in bases (clear) Abdomen: positive: Non-tender, Soft, Nml bowel sounds Skin: positive: Pallor, Dryness. negative: Pressure wound Extremities: positive: No pedal edema, Other (unable to raise right arm on command; passively moved with some discomfort; no swelling or tenderness on palpation around joint; left without limitations; limited ability to move lower extremities on command) Neurologic/Psychiatric: positive: Disoriented to place, Disoriented to time, Weakness, Other (pleasant; responds to questions but nonsensical or confabulates ; does not demonstrate insight into his situation; or recall events) Palliative Care - POLST Patient has POLST: Yes POLST Status: DNR, Selective Treatment (completed at visit) Pain: Location (new pain right shoulder; have been using topical with relief; will have OT evaluate) Performance Status: Patient has been bedbound the last several weeks, does need cueing, two-person assist for bed mobility and positioning. His total assistance for bed bath, during periods of agitation high risk for falls. Now needing assistance with feeding and eating. Patient's care needs are increasing, as well as the complexity of his care. - Palliative Care Discussion: Processed experience of transition to fpc from hospital, she did reflect on that I had recommended she go visit, she reports she just went and drove around the outside and felt it was not going to be a good fit nor adequate support for Alejandro. It did though help her understand the continuum of care, and her goal is at this point in time to focus on keeping him comfortable , improving his quality of life, trying to avoid hospitalization, and as he declines would like ultimately to have him at home with hospice. This is translated into a ZAY ST, with DNAR and selected treatments, but she would like to avoid rehospitalization if necessary. Will await those decisions as far as benefits and burdens as they arise. Her embedded case manager for [employer] is Olivia, she is to get a reassessment, his care needs have definitely been increasing. She did have a long conversation with Jaimee , feels like they are a better footing. She still demonstrates caregiver fatigue, and was hoping to get some respite, but understands the complexity of his situation is quite demanding. Her goal is to have more tools to manage his fluctuating status, does understand he is quite "frail" and is hoping to reach some predicatibility and routine. Impression and Recommendations - Palliative Care Impression: This is a 72-year-old gentleman who continues to have complex care needs, recently hospitalized as a result of aspiration pneumonia, has severe dysphagia , recent onset of lower extremity weakness and bedbound status, and ongoing cognitive decline with behavioral disturbances. Palliative care to provide support and assistance in establishing goals of care and symptom management Recommendations/Counseling Done: 1. Aspiration pneumonia. Patient currently on antibiotics, does have loose stools, does appear to be tolerating it okay. Reviewed the need for probiotics , and careful monitoring regarding the risk of C. difficile. Currently presents as improved. 2. Dementia with behavioral disturbances. Description of patient's neuropsychiatric behaviors of cycling with sundowning, agitation, and paranoia. Primary care provider had prescribed quetiapine, had not started is concerned regarding side effects, education provided regarding risks and benefits of using quetiapine. Will initiate at low-dose of 12.5, and evaluate response. Patient also has underlying anxiety disorder, this is exacerbated during his times of sundowning, counseling regarding use of benzodiazepines, will provide it as a "tool", alprazolam 0.25 mg 1-2 tabs up to 3 times a day with education provided. [facility]cription [facility]. Requested if patient continue to fall out of bed or risk, have PT evaluate if patient would benefit from full rails. 3.Dysphagia. following swallow precautions provided by speech therapy. Challenge to find things that appeal the patient in the pured diet form. Does have Ensure/supplemental drink using. She is watching calories as far as being able to meet caloric needs. Patient does demonstrate symptoms of weight loss. Patient having difficulty with pills, consult to pharmacist regarding crushed meds, and liquid forms available. 4. Depression. Patient was on time-released Wellbutrin 300 mg, consult with pharmacist for short acting, ordered short acting 150 twice daily. Recent addition of citalopram at 10 mg added by neurologist, suspect this was to address neuropsychiatric behaviors not for depression. Will continue at this point in time. 5. Advanced care planning. Counseling with regarding goals of care, ZAY POPE completed, reviewed the continuum of care. Goals at this point remain to focus on comfort and quality of life, he is caregiver distress, avoid hospitalization, and when appropriate transition to hospice. [id number] for home health. It is a taxing considerable effort for the patient to leave the home, the patient is bedbound, only able to transport via ambulance. Patient will require nursing services, to further provide education regarding medications, nutritional and hydration monitoring, and monitoring of lungs regarding recovery from aspiration pneumonia. Patient with new medications to manage behavioral and neuropsychiatric symptoms, will need evaluation of response and further education with family. Physical therapy for strengthening, cueing, and bed mobility. Unclear patient's current potential for standing and pivot transfers. Secondary unknown etiology of decline. OT for upper extremity strengthening, work with right shoulder discomfort and pain management. Speech therapy for follow-up regarding swallow precautions, aspiration risk, and progression of diet if possible Time Spent: 75 minutes with greater than 50% of this done in counseling, review of medications and education, counseling regarding anticipatory guidance and goals of care, coordination of care for [id number] for home health.
== END 2018-01-10 15:01 | disposition home or self-care (01) ==
LOC: PC 15:00
PROVIDERS: ATTEND Nurse Practitioner Adult Health
DX: Z51.5 Encounter for palliative care (principal); J69.0 Pneumonitis due to inhalation of food and vomit; F03.91 Unspecified dementia, unspecified severity, with behavioral disturbance; F05 Delirium due to known physiological condition; R13.10 Dysphagia, unspecified; F32.9 Major depressive disorder, single episode, unspecified; F41.9 Anxiety disorder, unspecified; Z74.01 Bed confinement status; Z79.84 Long term (current) use of oral hypoglycemic drugs; Z79.82 Long term (current) use of aspirin; Z66 Do not resuscitate
CPT/HCPCS: 99350

== ENCOUNTER 2018-02-02 13:45 | Outpatient (CLI) | payer MEDICARE, MEDICAID ==
--- NOTE | 2018-02-02 14:12 | CONSULTATION NOTE ---
Palliative Care Follow Up - Referral Referring Provider: Dr. Fanny Wilson Time of Visit: 12:20-1:05 Referral setting: Home (There is a taxing considerable effort for the patient leave the home, he is mostly bedbound at this point in time, can sit and dangle only.) Referral Reason: Dementia with behavioral disturbances - Information Sources Records reviewed: Previous records reviewed, Other (follow up with Gillian PACKER) History/Review of Systems obtained from: Patient, Family ( Precious) Exam limitations: Clinical condition (patient with STM deficits) - History of Present Illness Update Brief HPI Update: This is a 72-year-old gentleman who was recently hospitalized at the end of December for aspiration pneumonia, has a history of normal pressure hydrocephalus, and progressive dementia. His original neurocognitive status worsened with his CABG in September 2017, as he had a significant reaction to anesthesia. He does also have a recent exacerbation of symptoms in November of left hemiplegia, this continues to resolve. He has had improvement since his hospitalization both functionally and in his cognitive status. His dysphasia is improved, he is gaining as far as strength, is able to balance on the side of the bed versus totally bedbound. Patient's behavioral disturbances are being managed by just intermittent alprazolam, goal is to keep patient home without further hospitalization Social History - Living Situation Living arrangement: At home Living Situation: With spouse/s.o. ( primary CG with support from daughter) , With family (daughter HILDA worker; hours increased to 118) Medications/Allergies - Medications Home Medications: Ambulatory Orders Medication Instructions Recorded Confirmed Aspirin [Aspirin EC] 81 mg PO DAILY 08/12/17 02/02/18 Atorvastatin Calcium 40 mg PO QDDINNER 12/02/17 02/02/18 Citalopram [CeleXA] 10 mg PO DAILY 12/02/17 02/02/18 Metoprolol Tartrate [Lopressor] 25 mg PO BID 12/02/17 02/02/18 Omeprazole [PriLOSEC] 20 mg PO QDAC 12/02/17 02/02/18 ALPRAZolam [Alprazolam] 0.25 - 0.5 mg PO TID PRN 01/10/18 02/02/18 buPROPion HCl [Bupropion HCl] 150 mg PO BID 01/10/18 02/02/18 metFORMIN [Glucophage] 1,000 mg PO BID 01/10/18 02/02/18 - Allergies Allergies/Adverse Reactions: Allergies Allergy/AdvReac Type Severity Reaction Status Date / Time Penicillins AdvReac Unknown Verified 12/01/17 18:57 Review of Systems - Constitutional Constitutional: reports: Weight loss (no measurements; but down from baseline) - Eyes Eyes: reports: Vision loss, Corrective lenses (requested recently to wear glasses again) - Ears, Nose & Throat Ears, Nose & Throat: reports: Other (no further signs of choking; improved on own; off pureed diet) - Cardiovascular Cardiovascular: reports: Decr. exercise tolerance. denies: Chest pain, Edema - Respiratory Respiratory: denies: Cough, SOB at rest - Gastrointestinal Gastrointestinal: reports: Reflux/heartburn (occasional), Good appetite - Genitourinary Genitourinary: reports: Incontinence (not needing tamulosin; incontinent voiding without problems) - Musculoskeletal Musculoskeletal: reports: Stiffness, Limited range of motion, Muscle weakness, Other (working with PT; it doing sitting balance now; very much encouraged) - Integumentary Integumentary: reports: Dryness - Neurological Neurological: reports: Memory problems (improved engagement; still confused but improve from baseline) - Psychiatric Psychiatric: reports: Delusions, Behavior disturbances (anxiety and cooperation improved on alprazalom about 2 x a day with good results) - Endocrine Endocrine: reports: Diabetes type 2 (FBS 130) - All Other Systems All Other Systems: reports: Reviewed and negative Physical Exam - Vital Signs Temperature: 97.4 C Pulse Rate: 76 Respiratory Rate: 18 O2 Saturation: 96 (ra @ rest) Blood Pressure: 128/74 - Physical Exam General Appearance: positive: No acute distress, Alert Eyes Bilateral: positive: Normal inspection ENT: positive: No signs of dehydration Neck: positive: No JVD, Trachea midline Cardiovascular: positive: Regular rate & rhythm Respiratory: positive: Breath sounds nml, Diminished in bases Abdomen: positive: Soft, Nml bowel sounds Skin: positive: Pallor, Dryness. negative: Pressure wound Extremities: positive: No pedal edema Neurologic/Psychiatric: positive: Disoriented to place, Disoriented to time, Weakness, Other (bright affect; joking with WAREHOUSE PRICING AND INVENTORY CLERK) Palliative Care - POLST Patient has POLST: Yes POLST Status: DNR, Selective Treatment Pain: No pain Sleep: Sleeps well Constipation: No Feelings of wellbeing/Perceived Quality of Life: Fair, Improved Performance Status: Patient mostly bedbound, is able to demonstrate bed mobility, did need some assistance turning from side to side. Is working with PT for trunk stability, working towards standing, long-term goal is to be able to walk. Short-term goal is to pivot transfer particularly and to the commode or to the recliner. Both patient and feeling much encouraged by the progress that has been made. Patient has been able to self-feed, and is doing much better overall - Palliative Care Discussion: feeling encouraged, is feeling she made the right decision to keep him at home. She is still having some caregiver fatigue, but has been able to take a couple respite days. She reports patient is much more manageable with intermittent alprazolam, is feeling like she can do this somewhat more for the "long-term". I did have hilda evaluation with increase in hours, this will help as far as finances and support. Patient goals himself is unable to really state. Is somewhat delusional as far as abilities. But does not seem distressed. continues to hope for the best, is hoping patient will continue to improve functionally, does perceive their current quality of life as back to baseline prior to hospitalization at [facility]. May even be somewhat better than when he was discharged from [place] with his last acute stroke. Impression and Recommendations - Palliative Care Impression: This is a 72-year-old gentleman who continues to have complex care needs, he was recently hospitalized with aspiration pneumonia which has since cleared. He has returned to normal eating, he is still remains bedbound, his behaviors of improved with the use of intermittent alprazolam. Short-term goal is for patient to be able to pivot transfer and spend some time in the recliner, as well as toilet on the commode. Palliative care to provide support and assistance with symptom management and ongoing defining goals of care. Recommendations/Counseling Done: 1. Dementia with behavioral disturbances. Patient is no longer needing the Seroquel, feels like behaviors with the "sundowning" is managed with preemptive alprazolam in the early afternoon. She does usually use one early evening, and occasional as needed in the late evening if patient is agitated. Still has some delusions, but is cooperative, is following more cues feels like his memory has improved somewhat though continues to be challenging. 2. Dysphagia. Patient is now feeding self, has had no choking episodes. He is able to take pills with cueing, no longer needing to crush pills. This is made caregiving much more easy. Speech therapy is continue to work with them, have not seen him though for a couple weeks. May also be focusing on some cognitive work. 3. Depression. Patient does seem to be doing well. Denies any anxiety or depression. No increase in concern of behaviors with , reports actually patient's improved and is in a good mood for most of the day. 4. Generalized weakness. Patient is working with PT couple times a week, encouraged patient and to pursue some home exercise program simple exercises to do on days when not present. Short-term goal is for patient to be able to transfer to recliner and/or commode. At that point in time will assist in getting commode if needed. There is a small cramped area. 5. Advanced care planning. feeling quite good about current plan of care , feels symptoms are currently controlled. Discussed support for palliative care in given that is still getting frequent visits from home health. Agreed with call for any concerns, otherwise would see patient in 2 months. 6. Aspiration pneumonia. Patient is finished antibiotics, does have some diminished breath sounds in the bases, this is more related to positioning. Did instruct to restart incentive spirometer on a daily basis. Time Spent: 45 minutes was given 50% of this done in counseling and coordination of care follow-up with home health, review of symptoms and anticipatory guidance
== END 2018-02-02 13:46 | disposition home or self-care (01) ==
LOC: PC 13:45
PROVIDERS: ATTEND Nurse Practitioner Adult Health
DX: Z51.5 Encounter for palliative care (principal); F03.91 Unspecified dementia, unspecified severity, with behavioral disturbance; R13.10 Dysphagia, unspecified; F32.9 Major depressive disorder, single episode, unspecified; M62.81 Muscle weakness (generalized); E11.9 Type 2 diabetes mellitus without complications; Z74.01 Bed confinement status; Z66 Do not resuscitate
CPT/HCPCS: 99349

== ENCOUNTER 2018-04-05 15:30 | Outpatient (CLI) | payer MEDICARE, MEDICAID ==
--- NOTE | 2018-04-05 17:27 | CONSULTATION NOTE ---
Palliative Care Follow Up - Referral Referring Provider: Dr. Fanny Wilson Time of Visit: 4091-9511 Referral setting: Home (Patient is bedbound it is a taxing considerable effort for the patient to leave the home would need to leave via ambulance.) Referral Reason: Dementia with behavioral disturbances/Bedbound status/Wt. loss - Information Sources Records reviewed: Previous records reviewed History/Review of Systems obtained from: Family ( Precious provided information) Exam limitations: Clinical condition (patient with progressive and severe dementia) - History of Present Illness Update Brief HPI Update: This is a 73-year-old gentleman who was recently discharged from hospice secondary to no further deterioration of functional or cognitive status and considered no longer terminal. Patient is known to palliative care, had seen in hospital in December/2017 regarding his aspiration pneumonia and defining goals of care. He had been discharged with home health the hope to return to some baseline functional status. He had some improvement initially but with weight loss and concern for recurrent aspiration, had been referred via to hospice. Patient has had a significant history over the last few months with concern for normal pressure hydrocephalus and not a candidate for a shunt when presented with left sided hemiparesis at that time and transfered to [facility]. 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 He had originally an acute decline after a four -vessel CABG and aortic replacement in 09/2017, though was having difficulty prior to this but was functional and not bedbound. called concerned patient had started to take a turn for the worst again, had been refusing to eat as much, having more cognitive issues compared to his baseline, and was worried have been prematurely discharged from hospice. On exam, patient does appear much thinner than previously at end of January, reports patient does need to be fed currently, has some intermittent choking but no acute episodes of aspiration. Does spit out pills, and subtle changes regarding his communication noted. Patient does not appear in any acute distress, does engage easily, is not really able to answer any specific questions. She does report patient's behaviors are better on the Lorazepam 0.5 mg twice daily with Haldol 0.5 mg twice daily. She had switched to liquid Lorazepam, and had been giving him 1 mg BID last week until she realized her mistake. She does perceive he is quite bored, he is having less ability to concentrate or engage as far as watching TV, suspect some hallucinations, but is pleasant during exam. Social History - Living Situation Living arrangement: At home Living Situation: With spouse/s.o. (Patient has been bedbound for the last several months, daughter is [employer] worker, patient is difficult regarding his rigidity and difficulty following direction to change and reposition. Is totally dependent now for feeding, bed mobility, and toileting.), With family Medications/Allergies - Medications Home Medications: Ambulatory Orders Medication Instructions Recorded Confirmed Citalopram [CeleXA] 10 mg PO DAILY 12/02/17 04/06/18 Metoprolol Tartrate [Lopressor] 25 mg PO BID 12/02/17 04/06/18 Omeprazole [PriLOSEC] 20 mg PO QDAC 12/02/17 04/06/18 buPROPion HCl [Bupropion HCl] 100 mg PO BID 01/10/18 04/06/18 Haloperidol Oral Soln [Haldol Oral 0.5 mg PO Q6HR PRN 04/06/18 04/06/18 Soln] LORazepam [Lorazepam Intensol] 0.5 mg PO Q6HR PRN 04/06/18 04/06/18 - Allergies Allergies/Adverse Reactions: Allergies Allergy/AdvReac Type Severity Reaction Status Date / Time Penicillins AdvReac Unknown Verified 12/01/17 18:57 Review of Systems - Constitutional Constitutional: reports: Poor appetite, Weight loss (unable to confirm but visually worsening; notes as well). denies: Fever, Chills - Respiratory Respiratory: reports: Cough (occasionally with eating), SOB with exertion. denies: SOB at rest - Gastrointestinal Gastrointestinal: reports: Poor appetite. denies: Constipation (bowels moving every 2-3 days) - Genitourinary Genitourinary: reports: Incontinence (denies any s/s infection) - Musculoskeletal Musculoskeletal: reports: Stiffness, Muscle weakness, Other (bedbound) - Integumentary Integumentary: reports: Dryness - Neurological Neurological: reports: General weakness, Memory problems (patient chimes in; lost in mid sentence when presenting information; reports sometimes it is just jibberish and others is quite present and engages with her somewhat appropriately) - Psychiatric Psychiatric: reports: Anxiety (currently managed on citalopram/lorazepam), Hallucinations (suspect given his behaviors; unable to elablorate), Aggitation ( intermittent; more to do with boredom and frustration about things he can't do i.e read the TV messages) - Endocrine Endocrine: reports: Diabetes type 2 - Hematologic/Lymphatic Hematologic/Lymphatic: denies: Recurrent infections - All Other Systems All Other Systems: reports: Reviewed and negative Physical Exam - Vital Signs Temperature: 97.9 C Pulse Rate: 82 Respiratory Rate: 18 O2 Saturation: 93 (ra @ rest) Blood Pressure: 102/52 - Physical Exam General Appearance: positive: Alert Eyes Bilateral: positive: Normal inspection ENT: positive: No signs of dehydration Neck: positive: No JVD, Trachea midline Cardiovascular: positive: Regular rate & rhythm Respiratory: positive: Breath sounds nml. negative: Wheezes, Rales, Rhonchi Abdomen: positive: Non-tender, Soft, Nml bowel sounds Skin: positive: Pallor (cheeks flushed;), Dryness (feet dry with heelbos on) Extremities: positive: No pedal edema, Other (stiff and hyperextends when trying to exam) Neurologic/Psychiatric: positive: Other (patient with some nonsensical answers; other times pipes in with wit and comments;) Palliative Care - POLST Patient has POLST: Yes POLST Status: DNR, Comfort Measures (up dated POLST with comfort measures) Pain: No pain Tiredness/Fatigue: Moderate (4-6) Drowsiness/Sedation: Moderate (4-6) Nausea: None Performance Status: Patient totally dependent for all ADLs, very difficult with bed mobility, takes 2 persons to reposition and provide carlene-care. Patient is needing to be fed at this point in time. - Palliative Care Discussion: is concerned about being in somewhat this in between state, wondering about whether he is going to get better or worse. She does recognize that he will continue to be bedbound, and total care. 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 We did discuss some revisit her goals, she does not want him to be rehospitalized. She is still quite anxious as she had a very bad experience with his original aspiration in December, reviewed in updating the POLST, she could call for assistance from 911 and patient does not have to go into hospital or ED, but is an option off of hospice. She does not see herself wanting to do that, and feels patient would not perceive his current quality of life is acceptable. She does exhibit symptoms of caregiver fatigue. Impression and Recommendations - Palliative Care Impression: This is an unfortunate 73-year-old gentleman who is of bedbound status, presents with dementia with behavioral disturbances most likely a vascular in origin mixed with Alzheimer's. He does appear to have fluctuating awareness, as well as cognitive abilities. He has lost over 60 pounds over the last 6 months, appears quite thin, has muscle wasting, and decreased intake over this week. Palliative care to continue to provide support monitoring, until patient has a more acute or identifiable decline in transitions back to hospice. Recommendations/Counseling Done: 1. Dementia with behavioral disturbances. Patient being currently managed on lorazepam and Haldol, scheduled twice daily. Feels current plan is working without concerns. 2. Dysphagia. Patient has declined some, is needing to feed him, he is the one who often will quit her say no more. She says his intake has decreased this week, patient does appear quite thin. Discussed/counseling regarding benefits burdens of adding an appetite stimulant, she would like to decline for now. 3. Depression. Patient does have less ability to interact with his environment , 's perception is he is more bored and lonely. Does get anxious when he cannot see or make contact with her. We did discuss given his current positioning possibly put up posterior on the ceiling, reviewed different ways to engage a break up the day, would be interested in a volunteer is for social interaction. 4. Advanced care planning. Patient has had both functional and cognitive decline since previous palliative care visit, did get discharged from hospice related to lack of terminal illness. Patient is quite fragile, will monitor for a few weeks,. Will need to change out hospital bed and mattress secondary to patient is [place] and needs to return back to [facility]. Given the logistics and difficulty for the patient, I did discuss with hospice and holding off in case patient returns to them in a short period of time. This was received with great relief from the , as he would need to coordinate with both companies and require a fireman helper transfer. Counseling provided and revisited [facility], will update to comfort focused treatments, patient is very concerned about patient aspirating and needing to call 911, reviewed she does not have to have him hospitalized but off of hospice there is that option for evaluation. But this way she can have rendered assistance if needed. They have picked a home bio gift [phone]. We did discuss if he were to at home, will need to call 911 for pronouncement, but to meet the EMS with POLST form and review it is an expected . Palliative care to follow, monitor decline and transition to hospice when appropriate [id number] for semi-electric hospital bed. Due to patient's severe dementia patient does have progressive dysphagia. He does require an elevation of the head greater than 30. He does require position of the body in ways not feasible and ordinary bed. Patient also requires frequent changes in body position as such as immediate elevation of head due to intermittent choking, patient has been bedbound. Patient also requires a PPD R/group 1 mattress. Patient is mostly immobile, cannot make changes in body position without maximum assistance, he does have weight loss and impaired nutritional status, both fecal and urinary incontinence ,. This is to about healthy skin integrity as well as reduce recurrence of deep decubiti while he is an bed secondary to bedbound. Time Spent: 45 minutes with greater than 50% of this done in counseling regarding clarifying goals of care, safety regarding aspiration, support for symptom management and coordination of care for other support team members.
== END 2018-04-05 15:31 | disposition home or self-care (01) ==
LOC: PC 15:30
PROVIDERS: ATTEND Nurse Practitioner Adult Health
DX: Z51.5 Encounter for palliative care (principal); F03.91 Unspecified dementia, unspecified severity, with behavioral disturbance; R13.10 Dysphagia, unspecified; F32.9 Major depressive disorder, single episode, unspecified; Z74.01 Bed confinement status; Z95.1 Presence of aortocoronary bypass graft; M62.81 Muscle weakness (generalized); F41.9 Anxiety disorder, unspecified; E11.9 Type 2 diabetes mellitus without complications; R45.1 Restlessness and agitation; Z66 Do not resuscitate
CPT/HCPCS: 99349

== ENCOUNTER 2018-04-26 13:00 | Outpatient (CLI) | payer MEDICARE, MEDICAID ==
--- NOTE | 2018-04-26 20:48 | CONSULTATION NOTE ---
Palliative Care Follow Up - Referral Referring Provider: Dr. Fanny Wilson Time of Visit: 5425-6593 Referral setting: Home Referral Reason: Dementia with behavioral disturbances - Information Sources Records reviewed: Previous records reviewed History/Review of Systems obtained from: Family ( Precious providing information) Exam limitations: Clinical condition (patient with dementia; is verbal but STM and answers nonsensical) - History of Present Illness Update Brief HPI Update: This is a 73-year-old gentleman with dementia most likely Alzheimer's and vascular mixed, also concern for normal pressure hydrocephalus and not a candidate for shunt when he presented with left sided hemiparesis in spring. He was recently hospitalized in December for aspiration pneumonia, returned home with supportive palliative care and home care, had rapid functional and cognitive decline in transition to hospice. He did though slowly improved with increased support, to the point he was considered no longer terminal. Patient does present with very slow decline, he is sleeping more, having more behavioral issues, she is needing use the Lorazepam 0.5 mg 3 times daily, and the Haldol 2-3 times a day as well. She is concerned as he does appear to have pain behaviors. Especially in his right shoulder, quite stiff and with turning , and is showing the sequela of long-term bedbound status. He still is able to eat and drink, though did observe choking during visit. He does have some upper airway phlegm, but his lower airways and posterior are clear throughout. His O2 sats are fine at 96%. He does have somewhat of a limited life, too much stimulation makes his agitation worse, they do live in a small trailer and there is not much interaction with the outside world. Of note he is unable to swallow pills, all medications are currently needing to be crushed. Changes from last visit include sleeping more, more agitation and gibberish particularly in the evening nighttime, still remains quite thin but no further visible signs of weight loss. Does have pain behaviors with movement of his right shoulder and is very stiff to turn. Patient himself engages in conversation, and sometimes has funny clips, but for the most part his answers are nonsensical. Social History - Living Situation Living arrangement: At home Living Situation: With spouse/s.o., With family Support System: primary CG, daughter provides assist is [employer] worker. Patient has two daughters, she has two daughters and they a daughter together, Miryam. She is Medications/Allergies - Medications Home Medications: Ambulatory Orders Medication Instructions Recorded Confirmed Citalopram [CeleXA] 10 mg PO DAILY 12/02/17 04/26/18 Metoprolol Tartrate [Lopressor] 25 mg PO BID 12/02/17 04/26/18 Omeprazole [PriLOSEC] 20 mg PO QDAC 12/02/17 04/26/18 buPROPion HCl [Bupropion HCl] 100 mg PO BID 01/10/18 04/26/18 Haloperidol Oral Soln [Haldol Oral 0.5 mg PO Q6HR PRN 04/06/18 04/26/18 Soln] LORazepam [Lorazepam Intensol] 0.5 mg PO Q6HR PRN 04/06/18 04/26/18 Morphine Sulfate [Morphine Sulf 5 mg PO Q4HR PRN 04/26/18 04/26/18 Oral (Roxanol)] Nystatin [Nystop] 1 applic TOP BID MDD until rash 04/26/18 04/26/18 resolved - Allergies Allergies/Adverse Reactions: Allergies Allergy/AdvReac Type Severity Reaction Status Date / Time Penicillins AdvReac Unknown Verified 12/01/17 18:57 Review of Systems - Constitutional Constitutional: reports: Fatigue - Cardiovascular Cardiovascular: denies: Chest pain - Respiratory Respiratory: reports: Cough (occasional), Sputum production (Phelgm but not able to cough out) - Gastrointestinal Gastrointestinal: reports: Early satiety, Other (taking about two ensure day). denies: Constipation (going every other day), Reflux/heartburn - Genitourinary Genitourinary: reports: Incontinence - Musculoskeletal Musculoskeletal: reports: Stiffness, Limited range of motion, Muscle weakness, Joint pain (right shoulder/arm;), Other (bedbound) - Integumentary Integumentary: reports: Rash (across forehead), Dryness - Neurological Neurological: reports: General weakness, Memory problems - Psychiatric Psychiatric: reports: Behavior disturbances - Endocrine Endocrine: reports: Intolerance to heat - Hematologic/Lymphatic Hematologic/Lymphatic: denies: Recurrent infections - All Other Systems All Other Systems: reports: Other (limited ROS dependent on ) Physical Exam - Vital Signs Temperature: 97.0 C Pulse Rate: 56 Respiratory Rate: 18 O2 Saturation: 96 (ra @ rest) Blood Pressure: 112/72 - Physical Exam General Appearance: positive: No acute distress Eyes Bilateral: positive: Normal inspection ENT: positive: No signs of dehydration Neck: positive: No JVD, Trachea midline Cardiovascular: positive: Regular rate & rhythm Respiratory: positive: Diminished in bases, Rhonchi (few scattered upper airways clear with cough). negative: Wheezes, Rales Abdomen: positive: Non-tender, Soft, Nml bowel sounds Skin: positive: Pallor, Rash (right armpit), Other (unable to wash hair; some caking noted; face with rash) Extremities: positive: No pedal edema, Other (Right shoulder guarding; leans to left in bed/angled; stiff legs) Neurologic/Psychiatric: positive: Disoriented to person, Disoriented to place, Disoriented to time, Weakness, Slurred/abnml speech, Flat affect Palliative Care - POLST Patient has POLST: Yes POLST Status: DNR, Comfort Measures Pain: Location (right shoulder; having difficulty crushing acetaminophen with little relief) Tiredness/Fatigue: Moderate (4-6) Drowsiness/Sedation: Severe (7-10) (sleeps most of time though more animated with "gibberish' at night "winds up") Nausea: None Depression: Mild (1-3) Anxiety: Mild (1-3) Dyspnea: None Anorexia: Moderate (4-6) Sleep: Variable sleep pattern Constipation: No Performance Status: Patient totally bedbound and dependent for all ADLs. Patient is able to manage his cup, but does need some assistance with feeding. - Palliative Care Discussion: has multiple stressors going on, including her daughter is in the hospital with double pneumonia, and she did go down and help yesterday but feels very torn. She has many things going on trying to follow up on L&I, financial stressors, and caregiver burnout. She does find talking to the kindergarten prep teacher very helpful and supportive, but is quite tearful today. Patient does show signs of ongoing decline, but nothing acute. When asked how he is doing and how things are going with said "I could say I am just confused" . Denies any distress and does trip and from time to time on conversation with an occasional crypts that does actually make sense. Life continues to be quite limited, does proceed quality of life as poor. Focus continues to be on comfort in managing patient's day-to-day needs. Impression and Recommendations - Palliative Care Impression: This is an unfortunate 73-year-old gentleman who is a bedbound status, continues to present with dementia with behavioral disturbances, does have fluctuating awareness as well as cognitive abilities. He does appear quite thin , he continues so to eat and drink, is sleeping more, and having more agitation and nighttime awakening. Palliative care to continue for provide support until patient presents with more acute decline to transition back to hospice. Recommendations/Counseling Done: 1. Right shoulder pain. Patient is quite tender the palpation over shoulder joint and right forearm. Limited range of motion. Patient does have morphine left from the comfort kit, will go ahead and initiate at 5 mg every 4 hours, see what patient needs to be comfortable. Instructed to initiated 2.5 mg and evaluate response, if no response in 30 minutes may repeat second 2.5. She is to continue to keep track, she had asked about a pain patch. He would need to be taking at least 5 doses in 24 hours of 5 mg prior education was done regarding this. They have been using Tylenol with little effect plus crushing was problematic. 2. Dementia with behavioral disturbances. Currently patient is in Lorazepam 3 times daily, with intermittent Haldol 2-3 times a day, he does have again escalating behaviors in the evening and at nighttime with more verbalization gibberish and somewhat of a flailing in the bed which is causing some pressure injuries. I did initiate conversation regarding trying Seroquel again, she still has prescription from before, she will make sure she gives a nighttime dose of Lorazepam if this is not a effective she will contact me for further instruction. 3. Dysphagia. Patient does still have intermittent choking, high risk for aspiration and aspiration pneumonia. She does assist with feeding, they are doing Ensure twice a day, she feels currently they are managing. 4. In the diagnoses. Patient with candidiasis and right axillary area, will order Nystop 100,000 U/g to be applied twice daily until clear 4. Depression. Patient with his cognitive decline less ability interact with environment, gets very anxious if is not within site. She did have to leave to assist her daughter yesterday reports he was more agitated and anxious while she was gone. She is trying to find some assistance so she can go back down again, is talking with neighbors. They have initiated the volunteer for social interaction, she reports he is quite sleepy in the morning, as can ask him to come in the afternoons. 5. Advanced care planning. Patient still is having very slight functional and cognitive decline since previous visit, remains quite fragile will continue to monitor. Will keep hospital bed currently in home given if patient transitions back to hospice will be quite problematic. This relieved the rheumatically. ZAY ST in place with comfort measures only. Time Spent: 45 minutes spent in counseling regarding pain and symptom management and anticipatory guidance.
== END 2018-04-26 13:01 | disposition home or self-care (01) ==
LOC: PC 13:00
PROVIDERS: ATTEND Nurse Practitioner Adult Health
DX: Z51.5 Encounter for palliative care (principal); M25.511 Pain in right shoulder; F03.91 Unspecified dementia, unspecified severity, with behavioral disturbance; R13.10 Dysphagia, unspecified; B37.2 Candidiasis of skin and nail; F32.9 Major depressive disorder, single episode, unspecified; F41.9 Anxiety disorder, unspecified; Z66 Do not resuscitate
CPT/HCPCS: 99349

== ENCOUNTER 2018-05-22 12:30 | Outpatient (CLI) | payer MEDICARE, MEDICAID ==
--- NOTE | 2018-05-22 21:05 | CONSULTATION NOTE ---
Palliative Care Follow Up - Referral Referring Provider: Dr. Fanny Wilson Time of Visit: [id number] Referral setting: Home - History of Present Illness Update Brief HPI Update: This is a 73-year-old gentleman with a complex history, difficult to follow particularly regarding his cognitive decline. Patient had presented with cognitive deficits and issues several years ago, and had culminated in a change of mental status in February 2016, had been worked up by 2 different neurologists without satisfactory information per . 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 Since that time he has been having increasing neuropsychiatric behaviors of agitation, sundowners, OCD, and paranoia as well as visual hallucinations. 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 His symptoms present more in line with a Lewy body and vascular mixed. He does have fluctuating awareness, continues to have agitation and anxiety, does get quite perseverative, continues with visual hallucinations, and remains bedbound. After he was hospitalized in December at [facility] for aspiration pneumonia, he did have home health with the goal to try and improve his functional status, unfortunately he continued to deteriorate. He was transition to hospice, but did improve and was discharged to do lack of terminal status. Patient's has been supported by palliative care, patient has remained bedbound, continues with fluctuating status of anxiety, agitation, perseverating behaviors, He is having difficulty swallowing, following directions, unable to finish his sentence or thought, presented with word salad, and was sleeping more. On Monday it had culminated, and she had thought he was actually transitioning to end-of-life. He is continuing to be less wakeful, though he did arouse for my visit,. He does appear quite pale, with more contractures in his legs, remains quite stiff, he can hold the cup and drink during the visit, she reports this fluctuates and often will hold food in his mouth and not swallow. Patient does have some awareness whether he is able to swallow or not and can often answer her with it a try. Patient's LMAC was measured today was 25.5 patient does have temporal and upper extremity wasting. He does seem quite thin and cachectic in the abdomen. She reports he has still not had any further skin breakdown, has been difficult with bathing, given patient's stiffness and now right shoulder pain. Social History - Living Situation Living arrangement: At home Living Situation: With spouse/s.o., With family (daughter present to assist with changing and turning; though providing the most of the care;) Support System: feels quite abandoned and resentful of rest the family, unable to find assistance. Her youngest daughter is quite ill, and she has felt quite torn as far as wanting to help her. She does have the visiting volunteer Wilbert comes on to provide some respite for her. Medications/Allergies - Medications Home Medications: Ambulatory Orders Medication Instructions Recorded Confirmed Citalopram [CeleXA] 10 mg PO DAILY 12/02/17 05/22/18 Metoprolol Tartrate [Lopressor] 25 mg PO BID 12/02/17 05/22/18 Omeprazole [PriLOSEC] 20 mg PO QDAC 12/02/17 05/22/18 buPROPion HCl [Bupropion HCl] 100 mg PO BID 01/10/18 05/22/18 Haloperidol Oral Soln [Haldol Oral 0.5 mg PO Q6HR PRN 04/06/18 05/22/18 Soln] LORazepam [Lorazepam Intensol] 0.5 mg PO Q6HR PRN 04/06/18 05/22/18 Morphine Sulfate [Morphine Sulf 5 mg PO Q4HR PRN 04/26/18 05/22/18 Oral (Roxanol)] Nystatin [Nystop] 1 applic TOP BID MDD until rash 04/26/18 05/22/18 resolved - Allergies Allergies/Adverse Reactions: Allergies Allergy/AdvReac Type Severity Reaction Status Date / Time Penicillins AdvReac Unknown Verified 12/01/17 18:57 Review of Systems - Constitutional Constitutional: reports: Fatigue, Weakness, Poor appetite, Weight loss (LMAC 25.5 left; hospice discharge 27) - Eyes Eyes: reports: Vision loss - Ears, Nose & Throat Ears, Nose & Throat: reports: Hearing loss (mild), Dry mouth - Gastrointestinal Gastrointestinal: reports: Early satiety (taking Ensure twice a day; soft foods @ dinner; likes and eats ice cream regularly) - Genitourinary Genitourinary: reports: Incontinence ("holds it") - Musculoskeletal Musculoskeletal: reports: Stiffness, Joint pain (right shoulder pain and tenderness with abduction or palpation; reports morphine does help; but painful with turning), Other (bedbound) - Integumentary Integumentary: reports: Rash (groin and axilla with nystop) - Neurological Neurological: reports: General weakness, Memory problems, Slurred speech - Psychiatric Psychiatric: reports: Depression, Anxiety, Delusions, Hallucinations, Aggitation - All Other Systems All Other Systems: reports: Other (limited ROS) Physical Exam - Vital Signs Temperature: 97.0 C Pulse Rate: 74 Respiratory Rate: 18 O2 Saturation: 91 (ra @ rest) Blood Pressure: 112/72 - Physical Exam General Appearance: positive: No acute distress, Cachetic Eyes Bilateral: positive: Normal inspection ENT: positive: No signs of dehydration, Other (no choking observed) Neck: positive: Trachea midline Cardiovascular: positive: Regular rate & rhythm, Diastolic murmur Respiratory: positive: Diminished in bases. negative: Wheezes, Rales, Rhonchi Abdomen: positive: Non-tender, Soft Skin: positive: Pallor, Dryness, Rash (axilla right) Extremities: positive: No pedal edema Neurologic/Psychiatric: positive: Mood/affect nml, Disoriented to place, Disoriented to time, Weakness, Other (Few full sentences, mostly nonsensical conversation, does not appear in distress. Unable to answer any orientation questions nor acknowledge any pain or discomfort other when working with right shoulder.) Palliative Care - POLST Patient has POLST: Yes POLST Status: DNR, Comfort Measures Pain: Location (right shoulder; ms 5 mg 2-3 x a day with increased comfort per ) Anxiety: Severe (7-10) (reports when doesn't take antidepressants notes increase anxiety; sometime spits out or can't swallow;) Anorexia: Weight loss Sleep: Sleeps well Constipation: No Performance Status: Patient is bedbound, his total care. Patient is difficult to manage secondary to stiffness and intermittent agitation. Can be non-cooperative, particularly in the late afternoons and evening. Patient is incontinent of bowel and bladder, does use still on a regular basis which makes his care needs more complicated. - Palliative Care Discussion: Please note for hospice team, patient has been transitioned to DNAR/comfort measures on .Ca and transitioning, had been worried about not being will call 911 secondary to her distress with his last aspiration episode. Reassured could call 911 for assistance for choking or respiratory distress. Patient does not need to be transferred. She does not proceed patient would consider his current status is acceptable quality of life. She does feel ready to focus on comfort, relief of suffering, and recognizes though he does have fluctuating status she is ready to let him go. She would like to transition to hospice if he currently meets criteria, she does feel her goals are aligned at this point in time, and does see patient as deteriorating. She does understand dementia has a difficult course, but wants to focus on comfort. Patient has very little to no insight to his current status or situation. Ca reports he is less often asking where he used to ask "what is going on" and get quite agitated. Particularly in last week since he had what most likely was a TIA, seems more subdued. continues to present with caregiver fatigue, she is stressed regarding the health of her youngest daughter who is recently been hospitalized. Her daughter's is living there, son will be moving in and is hoping this will allow her more time with her daughter who is ill, and respite. 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 In describing this last week, most likely had a TIA, patient does present with sleeping more, increased weight loss, decreased intake and anorexia. Palliative care will transition to hospice. Recommendations/Counseling Done: 1. TIA. Patient does have high risk for TIA, history of atrial fib, history of CVA, bedbound status. Has not recovered to previous level of cognition, but appears improved today. 2. Dementia with behavioral disturbances. Patient does have neuropsychiatric behaviors of anxiety, agitation, paranoia, hallucinations and fluctuating levels of awareness. Patient is currently managed with 3 times daily dosing of Haldol 0.5 mg/Lorazepam 0.5 mg. This has managed most of his escalations and perseverating behaviors. He does have trouble swallowing his antidepressants at times, she does note an increase in anxiety when missing doses. She has used the additional dose with good relief. Patient is sleeping more after episode, a nd does present with refusing more intake, patient does have some pocketing of food and fluids depending on his fluctuating awareness. 3. Weight loss. Patient does appear more cachectic, temporal and upper extremity wasting. With fluctuating awareness, does miss meals at times, she does try and supplement with Ensure and ice cream. Patient does need to be fed, but will refuse at times.. Goals remain to focus on comfort, and not to force feedings. Patient does not appear dehydrated. 4. Advanced care planning. Goals remain to focus on comfort, keep patient at home, Precious does exhibit caregiver fatigue, is looking forward to more caregiving support with her grandson moving in this June. She has been supported by both the regional account executive and visiting volunteer. Case was reviewed with patient's current decline, weight loss, increased sleeping, TIA, cognitive deterioration and goals of care with hospice medical biller coder, will transition back to hospice. Time Spent: 45 minutes with getting 50% of this done in counseling regarding goals of care, management of symptoms, anticipatory guidance and coordination of care with hospice team. Patient currently has hospital bed from previous admit.
== END 2018-05-22 12:31 | disposition home or self-care (01) ==
LOC: PC 12:30
PROVIDERS: ATTEND Nurse Practitioner Adult Health
DX: Z51.5 Encounter for palliative care (principal); F03.91 Unspecified dementia, unspecified severity, with behavioral disturbance; R63.4 Abnormal weight loss; F41.9 Anxiety disorder, unspecified; R44.1 Visual hallucinations; Z74.01 Bed confinement status; R13.10 Dysphagia, unspecified; R68.81 Early satiety; M62.81 Muscle weakness (generalized); Z66 Do not resuscitate
CPT/HCPCS: 99349